=== PATIENT | male | born 1955 | race Caucasian/White ===

== ENCOUNTER 2016-04-10 08:52 | Observation (INO) | payer BC ==
[2016-04-10] MEDS ORDERED: Albuterol/Ipratropium NEB.SOL* Albuterol 2.5 MG/Ipratropium 0.5 MG 3 ML INH ONE ×2 (09:07→10:07)
[2016-04-10] MEDS ORDERED: methylPREDNISolone 125 MG* 2 ML VIAL IV ONE (10:07)
--- NOTE | 2016-04-10 10:28 | RAD ---
INDICATION: Shortness of breath in a patient who was recently receiving chemotherapy. COMPARISON: Most recent comparison chest x-ray dated January 23, 2015 TECHNIQUE: PA and lateral views of the chest were obtained. FINDINGS: The heart and mediastinum are normal in size and contour. The lungs appear mildly hyperaerated, the diaphragm are flattened and there is an increased retrosternal airspace on the lateral view chest x-ray. Faint reticulonodular densities are seen overlying the bilateral lungs are becoming more confluent overlying the right upper lobe. There is no evidence of large pleural effusion. Visualized bones are normal for the patient's age. There is no radiographic evidence of free air beneath the diaphragm IMPRESSION: 1. Faint reticulonodular densities throughout the lungs could represent interstitial lung disease, fluid overload, pneumonitis or another diffuse process. 2. Stigmata of chronic obstructive pulmonary disease.
[2016-04-10 10:30] LABS: Hematocrit 42 % (42-52); Mean Corpuscular HGB Conc 33 g/dl (31-36); Mean Corpuscular Hemoglobin 33 pg (27-31); Mean Corpuscular Volume 97 fL (80-94); Mean Platelet Volume 10 um3 (7.4-10.4); Red Cell Distribution Width 14 % (10.5-15); White Blood Count 12.4 10^3/ul (3.5-10.8)
[2016-04-10 10:44] LABS: BUN/Creatinine Ratio 19.8 (8-20); Calcium 8.8 mg/dL (8.6-10.3); EGFR African American 125.4 (>60); EGFR Non-African American 97.5 (>60); Potassium 3.7 mmol/L (3.5-5.0)
[2016-04-10] MEDS ORDERED: Iohexol 350* (CONTRAST) 500 ML MDV IV ONE (12:55)
[2016-04-10] MEDS ORDERED: guaiFENesin/CODIEN 100MG-10MG* 5 ML UDC PO ONE (14:01)
--- NOTE | 2016-04-10 14:42 | RAD ---
INDICATION: Shortness of breath COMPARISON: CTA chest dated December 18, 2014 TECHNIQUE: Axial source images were acquired following the administration of 65 mL Omnipaque [address] angiographic technique. Coronal and sagittal reconstructed images were constructed and reviewed. FINDINGS: There there are no filling defects in the pulmonary arteries to indicate acute pulmonary embolic disease. Similar to previous CTA examination the lungs exhibit diffuse centrilobular emphysematous changes. There are no focal infiltrates or effusions. There are no pulmonary parenchymal masses. The heart is normal in size. There is no evidence of pericardial effusion. There is no evidence of aortic aneurysm or dissection. Again seen are mediastinal and hilar lymph nodes similar in appearance to the previous CT examination, but none exhibit pathologic enlargement. There is left axillary lymphadenopathy similar to the previous CT examination with the largest lymph node measuring 1.8 centimeters in greatest dimension. Overall the lymph nodes in the left axilla are smaller relative to the previous CT examination. At least one surgical clip is seen in the left axilla. Generative changes of the thoracic spine include loss of intervertebral disc height. There is likely a hemangioma at the T7 vertebral body. There is a surgical clip adjacent to the left adrenal gland. Remaining visualized abdominal structures are grossly normal. IMPRESSION: 1. No CT of evidence of pulmonary embolism. 2. Chronic, degenerative and iatrogenic findings as described in the body the report. There is left axillary lymphadenopathy but this is improved relative to the December 18, 2014 CT examination.
[2016-04-10] MEDS ORDERED: Albuterol 2.5 MG/3 ML NEB.SOL* (0.083%) INH PRN (15:42)
[2016-04-10] MEDS ORDERED: NS 0.9% 1000 ML* 1,000 ML IV SCH (15:45)
[2016-04-10] MEDS ORDERED: Albuterol/Ipratropium NEB.SOL* Albuterol 2.5 MG/Ipratropium 0.5 MG 3 ML INH SCH (16:00)
[2016-04-10] MEDS ORDERED: Azithromycin IV(*) 500 MG in NS 0.9% 250 ML* 250 ML IVPB SCH (17:00)
[2016-04-10] MEDS: methylPREDNISolone 125 MG* 2 ML VIAL IV SCH (17:08)
[2016-04-10] MEDS ORDERED: diPHENhydraMINE PO* 25 MG PO PRN (18:20)
[2016-04-10] MEDS: Albuterol/Ipratropium NEB.SOL* Albuterol 2.5 MG/Ipratropium 0.5 MG 3 ML INH SCH ×2 (19:08→23:57)
[2016-04-10] MEDS: Mometasone/Formoter 200/5 MDI INH SCH (19:15)
[2016-04-10] MEDS: Heparin VIAL(*) 5000 UNITS/ML VIAL (FIVE THOUSAND) SUBCUT SCH (21:45)
--- NOTE | 2016-04-11 01:48 | HP ---
HISTORY AND PHYSICAL: DATE OF ADMISSION: 04/10/16 PRIMARY CARE PROVIDER: Dr. Carver. ATTENDING PHYSICIAN WHILE IN THE HOSPITAL: Dr. Christiano Richardson *(report dictated by Perez De Paz, ALLYSSA). CHIEF COMPLAINT: 1. Shortness of breath. 2. Cough. HISTORY OF PRESENT ILLNESS: Mr. Singer is a 61-year-old male patient who has a history of GERD, COPD, lymphoma, and West Nile virus. He comes in to the ER today stating that 3 to 4 weeks ago, he was diagnosed with bronchitis. He was put on a long taper of steroids. He finished the steroids. He normally takes 10 mg prednisone according to him chronically for his breathing and is on oxygen at night. He says he was doing well initially, the steroids have been stopped now, he has been off them for about 2 to 3 weeks. He states that today and the last couple of days, he has more worsening shortness of breath. He has been coughing up, bringing up some yellow sputum at times. He has been having more dyspnea on exertion. He has not had any chills or any fevers that he knows of. He does state that he follows with Dr. Cho who saw him about 3 weeks ago. He has been taking his inhalers as prescribed, but they just have not been helping him. He says that yesterday he was short of breath, but by afternoon time, he was okay, but today, when he woke up again, much more short of breath and he could not recover. His was concerned and she called 911 immediately and he was brought into the hospital to be evaluated. PAST MEDICAL HISTORY: Significant for: 1. GERD. 2. COPD. 3. Lymphoma. 4. West Nile virus. 5. Hypertension. 6. Hyperlipidemia. PAST SURGICAL HISTORY: 1. He has had splenectomy. 2. Achilles tendon repair. HOME MEDICATIONS: Include: 1. Norvasc 2.5 mg daily. 2. Symbicort 2 puffs inhaled b.i.d. 3. Wellbutrin 150 mg p.o. daily. 4. Famotidine 20 mg p.o. daily. 5. Multivitamin 1 tab p.o. daily. 6. Crestor 10 mg p.o. daily. 7. Valtrex 500 mg daily. 8. Vitamin D 4000 units daily. 9. Prednisone 10 mg by mouth p.o. daily. ALLERGIES TO MEDICATIONS: Include no known drug allergies. FAMILY HISTORY: His father has a history of lymphoma and coronary artery disease and mother had a history of diabetes. SOCIAL HISTORY: He was a former smoker. He quit about a year ago. He smoked for 40 years about a pack a day. Does not drink alcohol. Surrogate decision maker is his . REVIEW OF SYSTEMS: There is no documented fever. He denies having any chills. There is no significant weight change. He denies having any double vision. There is no ear discharge. There was rhinorrhea. There was sore throat. There is a cough with yellow type sputum. He denies any chest pain. Denies any orthopnea. He admits to dyspnea on exertion. Denies having any abdominal pain. Denies having any nausea. There is no dysuria. No frequency. No loss of consciousness. No pruritus. No skin ulcerations. Review of 14 systems completed, all others negative. PHYSICAL EXAMINATION GENERAL: At this time, Mr. Singer is a 61-year-old male patient who is sitting in the ER stretcher. He does not appear to be in any acute distress. He is well nourished, well developed. VITAL SIGNS: Blood pressure 130/82 with a pulse of 92, respirations 16, O2 saturation 97% on 4 L. When he came in, his O2 saturation was 81% on room air. HEENT: Head: Atraumatic, normocephalic. Eyes: EOMs are intact. Sclerae anicteric, not pale. Throat: Oral mucosa appears to be dry. No oropharyngeal erythema. NECK: Supple. LUNGS: He had wheezing expiratory throughout, and equal diaphragmatic expansion. HEART: Sounds S1, S2. Regular rate and rhythm. No murmurs, rubs, or gallops. ABDOMEN: Soft, flat, nontender. Bowel sounds present. EXTREMITIES: Pulses 2+ throughout. Able to move all 4 extremities with 5/5 strength. NEUROLOGIC: The patient is awake, alert, and oriented x3. Tongue midline. Facilities Clerk were equal. No gross focal deficits. SKIN: Intact. LABORATORY DATA/DIAGNOSTIC STUDIES: Today revealed WBC of 12.4, RBC of 4.30, hemoglobin 14.0, hematocrit 42, platelet count 276. Sodium was 137, potassium 3.7, chloride 104, bicarb 28, BUN 16, creatinine 0.81, glucose 116, calcium 8.8. Troponin 0.01. He did have an EKG obtained today which revealed a sinus tachycardia, rate of 104. No ST elevations or T-wave inversions. No previous for comparison, appeared to be normal axis. He did have a chest x-ray obtained today as well. In my review, I did not see any acute infiltrates or effusions. Radiology read it as faint reticular nodular densities throughout the lungs to represent interstitial lung disease, no fluid overload or pneumonitis, or another disease process. Stigmata of COPD. He did have a CTA of the chest which revealed no CT evidence of pulmonary embolism. Chronic degenerative and iatrogenic findings as described in the body of the report. There is a left axillary lymphadenopathy, but this is improved from the CT scan of 2015. Old medical records were reviewed. ASSESSMENT AND PLAN: Mr. Singer is a 61-year-old male patient with a history of chronic obstructive pulmonary disease, West Nile virus exposure in the past, and lymphoma, coming in to the ER today with complaints of worsening shortness of breath, cough, and dyspnea on exertion. He will be admitted under observation status for: 1. Chronic obstructive pulmonary disease exacerbation: At this point, I will check legionella and strep pneumoniae antigens. We will get a sputum culture. We will put him on nebulizers around the clock. Encourage pulmonary toileting. In addition to this, Shantal lamas I will consider getting consult with Dr. Cho tomorrow as the patient sees her on an outpatient setting and I think he may benefit as he has had recurrent exacerbations. For the time being though, we will continue with again the steroids and nebulizers and we will continue to monitor. 2. Gastroesophageal reflux disease: Continue famotidine. 3. History of lymphoma: He says he was taking medication for this, but he is no longer on this medication. So, we will go ahead and try to get that name of the medication to see what he was taking exactly, but currently, he is just under surveillance of this disease and can follow up with outpatient provider. 4. Hyperlipidemia: Continue statin therapy. 5. Hypertension: He is on Norvasc. Continue with that medication as well. 6. DVT prophylaxis: He is a moderate risk. He will be placed on heparin subcu. 7. Fluids, electrolytes, and nutrition: He will be on a regular diet. 8. Code status: Full code. TIME SPENT: Time spent on the admission was 60 minutes; greater than half the time was spent [id number] with the patient obtaining my history and physical, other half the time spent going over the plan of care with the patient and implementing plan of care. I did discuss the plan of care with my attending, Dr. Richardson; he is in agreement. PEREZ DE PAZ NP CC: Dr. Carver; Dr. Cho* [id number]/CPS #: [id number] MTDD
[2016-04-11] MEDS: methylPREDNISolone 125 MG* 2 ML VIAL IV SCH (04:51)
[2016-04-11] MEDS: Heparin VIAL(*) 5000 UNITS/ML VIAL (FIVE THOUSAND) SUBCUT SCH (04:51)
[2016-04-11] MEDS: Albuterol/Ipratropium NEB.SOL* Albuterol 2.5 MG/Ipratropium 0.5 MG 3 ML INH SCH ×3 (04:52→11:11)
[2016-04-11 06:08] LABS: Hematocrit 39 % (42-52); Hemoglobin 13.4 g/dl (14.0-18.0); Mean Corpuscular HGB Conc 34 g/dl (31-36); Mean Corpuscular Hemoglobin 33 pg (27-31); Mean Corpuscular Volume 97 fL (80-94); Mean Platelet Volume 10 um3 (7.4-10.4); Red Blood Count 4.06 10^6/ul (4.0-5.4); Red Cell Distribution Width 14 % (10.5-15); White Blood Count 10.6 10^3/ul (3.5-10.8)
[2016-04-11 06:36] LABS: BUN/Creatinine Ratio 20.5 (8-20); Calcium 8.8 mg/dL (8.6-10.3); EGFR Non-African American 88.6 (>60)
[2016-04-11] MEDS: Mometasone/Formoter 200/5 MDI INH SCH (07:49)
[2016-04-11 08:59] VITALS: BP 125/80
[2016-04-11] MEDS ORDERED: ValACYclovir (*) 500 MG TAB PO SCH (09:00)
[2016-04-11] MEDS ORDERED: Famotidine TAB* 20 MG PO SCH (09:00)
[2016-04-11] MEDS ORDERED: amLODIPine TAB* 5 MG PO SCH (09:00)
[2016-04-11] MEDS ORDERED: buPROPion SR TAB.SR* 150 MG PO SCH (09:00)
[2016-04-11] MEDS ORDERED: Atorvastatin* 20 MG TAB PO SCH (09:00)
--- NOTE | 2016-04-11 12:01 | DCNOTE ---
Subjective Date of Service: 04/11/16 Interval History: Patient seen and examined at bedside. He denies CP, abd pain, n/v. He reports his breathing is better and reports being OOB and ambulating around halls at least 3 times this morning on RA. Per nursing notes, pt's O2 sat was 91% or better on RA with ambulation. Pt is requesting to go home. He wears home O2 at night at his baseline. Family History: Unchanged from Admission Social History: Unchanged from Admission Past Medical History: Unchanged from Admission Objective Active Medications: Albuterol/Ipratropium (Duoneb Neb.Violet*) 1 neb INH [id number] AWAKE [facility] Last Admin: 04/11/16 11:11 Dose: 1 neb Amlodipine Besylate (Norvasc Tab*) 2.5 mg PO DAILY [facility] Last Admin: 04/11/16 10:04 Dose: 2.5 mg Atorvastatin Calcium (Lipitor*) 20 mg PO DAILY [facility] PRN Reason: Protocol Last Admin: 04/11/16 10:04 Dose: 20 mg Bupropion HCl (Wellbutrin Sr Tab*) 150 mg PO DAILY [facility] Last Admin: 04/11/16 10:04 Dose: 150 mg Diphenhydramine HCl (Benadryl Po*) 25 mg PO BEDTIME PRN PRN Reason: SLEEP Last Admin: 04/10/16 23:51 Dose: 25 mg Famotidine (Pepcid Tab*) 20 mg PO DAILY [facility] Last Admin: 04/11/16 10:04 Dose: 20 mg Heparin Sodium (Porcine) (Heparin Vial(*)) 5,000 units SUBCUT Q8HR [facility] Last Admin: 04/11/16 04:51 Dose: 5,000 units Sodium Chloride (Ns 0.9% 1000 Ml*) 1,000 mls @ 100 mls/hr IV PER RATE [facility] Last Admin: 04/10/16 17:07 Dose: 100 mls/hr Azithromycin 500 mg/ Sodium (Chloride) 250 mls @ 250 mls/hr IVPB Q24H [facility] Last Admin: 04/10/16 17:07 Dose: 250 mls/hr Methylprednisolone Sodium Succinate (Solu-Medrol*) 60 mg IV Q12H [facility] Last Admin: 04/11/16 04:51 Dose: 60 mg Mometasone Furoate/Formoterol Fumar (Dulera 200/5 Mdi*) 2 puff INH BID [facility] Last Admin: 04/11/16 07:49 Dose: 2 puff Valacyclovir HCl (Valtrex 500 Mg (*)) 500 mg PO DAILY [facility] PRN Reason: Protocol Last Admin: 04/11/16 10:04 Dose: 500 mg Vital Signs 04/10/16 04/10/16 04/10/16 15:48 17:14 17:49 Temperature 97.9 F 97.9 F Pulse Rate 93 91 91 Respiratory 16 18 18 Rate Blood Pressure 130/83 129/79 129/79 (mmHg) O2 Sat by Pulse 97 95 94 Oximetry 04/10/16 04/10/16 04/10/16 17:51 19:16 19:24 Temperature 97.5 F Pulse Rate 103 101 Respiratory 18 20 28 Rate Blood Pressure 138/71 (mmHg) O2 Sat by Pulse 93 95 Oximetry 04/10/16 04/10/16 04/10/16 19:52 23:42 23:51 Temperature 98.0 F Pulse Rate 90 Respiratory 20 20 20 Rate Blood Pressure 128/74 (mmHg) O2 Sat by Pulse 93 Oximetry 04/11/16 04/11/16 04/11/16 00:00 01:44 01:51 Temperature Pulse Rate 88 Respiratory 20 20 Rate Blood Pressure (mmHg) O2 Sat by Pulse 93 93 Oximetry 04/11/16 04/11/16 04/11/16 03:19 07:16 07:51 Temperature 97.5 F 98.2 F Pulse Rate 86 96 86 Respiratory 21 18 18 Rate Blood Pressure 125/83 125/80 (mmHg) O2 Sat by Pulse 96 92 96 Oximetry 04/11/16 11:14 Temperature Pulse Rate 97 Respiratory 16 Rate Blood Pressure (mmHg) O2 Sat by Pulse 100 Oximetry Oxygen Devices in Use Now: None Appearance: Male patient, sitting up in bed, in NAD Eyes: PERRLA Ears/Nose/Mouth/Throat: Clear Oropharnyx, Mucous Membranes Moist Neck: NL Appearance and Movements; NL JVP Respiratory: Symmetrical Chest Expansion and Respiratory Effort, Clear to Auscultation - expiratory wheezing in bases, prolonged expiratory phase Cardiovascular: NL Sounds; No Murmurs; No JVD, RRR Abdominal: NL Sounds; No Tenderness; No Distention Extremities: No Edema, No Clubbing, Cyanosis Skin: No Rash or Ulcers Neurological: Alert and Oriented x 3 Lines/Tubes/Other Access: Clean, Dry and Intact Peripheral IV Nutrition: Taking PO's Result Diagrams: 04/11/16 05:46 04/11/16 05:46 Microbiology and Other Data: Microbiology 04/10/16 21:50 Legionella Urinary Antigen - Final Urine Negative Legionella Streptococcus pneumoniae Ag Screen - Final Negative S. pneumo Antigen Assess/Plan/Problems-Billing Assessment: Mr. Singer is a 61 yo male with a PMH of COPD, lymphoma, GERD, HTN, HLD, and West Nile Virus who presented to the ED on 04/09/16 with SOB that is secondary to COPD exacerbation. - Patient Problems (1) COPD with exacerbation Code(s): J44.1 - CHRONIC OBSTRUCTIVE PULMONARY DISEASE W (ACUTE) EXACERBATION Comment: Improved. Add Spiriva and continue home Symbicort and PRN nebulizers. Continue Zithromax for 5 day course. Legionella and strep pneumoniae urine antigens negative. Continue steroid treatment, will discharge patient on slow prednisone taper. Patient to call Dr. Cho for follow-up within 7-14 days. (2) GERD (gastroesophageal reflux disease) Code(s): K21.9 - GASTRO-ESOPHAGEAL REFLUX DISEASE WITHOUT ESOPHAGITIS Comment : Stable, continue home famotidine. (3) HTN (hypertension) Code(s): I10 - ESSENTIAL (PRIMARY) HYPERTENSION Comment: Controlled, continue home amlodipine. (4) HLD (hyperlipidemia) Code(s): E78.5 - HYPERLIPIDEMIA, UNSPECIFIED Comment: Stable, continue home rosuvastatin. (5) Lymphoma Comment: Continue outpatient follow-up with oncologist. Continue valacyclovir. (6) DVT prophylaxis Comment: SQ heparin Status and Disposition: OBV admit. Discharge to home with close follow-up with pulmonology.
[2016-04-11] MEDS ORDERED: Spiriva Inhaler DEVICE* 1 EACH DEVICE INH ONE (13:00)
[2016-04-11] MEDS ORDERED: Azithromycin TAB* 250 MG PO SCH (13:00)
[2016-04-11] MEDS ORDERED: Tiotropium CAP.INH* CAP.INH/18 MCG (USE ORDER SET !) INH SCH (13:00)
--- NOTE | 2016-04-12 07:36 | DS ---
DISCHARGE SUMMARY: DATE OF ADMISSION: 04/10/16 DATE OF DISCHARGE: 04/11/16. ATTENDING PHYSICIAN: Dr. Clay Dobbs M.D. * (as dictated by Radha Sullivan NP). PRIMARY CARE PHYSICIAN: Dr. Carver. PULMONOLOGY: Dr. Cho. PRIMARY DISCHARGE DIAGNOSIS: Chronic obstructive pulmonary disease exacerbation. SECONDARY DISCHARGE DIAGNOSES: 1. Gastroesophageal reflux disease. 2. Lymphoma. 3. Hypertension. 4. Hyperlipidemia. 5. History of West Nile virus. MEDICATIONS AT DISCHARGE: 1. Valtrex 500 mg daily. 2. Rosuvastatin 10 mg daily. 3. Famotidine 20 mg daily. 4. Amlodipine 2.5 mg daily. 5. Symbicort 2 puffs p.o. b.i.d. 6. Bupropion 150 mg daily. 7. Vitamin D 4000 units daily. 8. Multivitamin one tablet daily. NEW MEDICATIONS AT DISCHARGE: 1. Prednisone taper, the patient should be on 40 mg, x5 days then 30 mg x5 days then 20 mg x5 days then 10 x5 days. 2. Spiriva one capsule inhaled daily. 3. Zithromax 250 mg daily x4 days, to complete a 5-day course. DIAGNOSTIC TESTS: Diagnostic tests completed during hospital course of stay. Chest x-ray, impression: 1. Faint reticulonodular radicular nodular densities throughout the lungs, could represent interstitial lung disease, fluid overload, pneumonitis or any other diffuse process. 2. Stigmata of chronic obstructive pulmonary disease. CTA of chest and thorax, impression; 1. No CT evidence of pulmonary embolism. 2. Chronic congenital and iatrogenic findings as described in the body of the report. There is left axillary lymphadenopathy but this is improved relative to December 18, 2014, CT examination. HOSPITAL COURSE OF STAY: For full details, please refer to the H and P provided by the nurse practitioner, Perez De Paz NP, on 04/10/16. In summary , Mr. Singer is a 61-year-old male patient with a past medical history as stated above who presented to the ED with shortness of breath and cough. The patient does follow in the outpatient setting with Dr. Cho and states that he had recently been on a prednisone taper and has been maintained on prednisone 10 mg at home. Prior to the admission, he states that he was feeling short of breath , was able to recover but then woke up later in the evening, feeling more short of breath without ability to recover. The patient was brought in by EMS for evaluation and admitted with concern for COPD exacerbation. His legionella and Strep pneumoniae antigens were negative. The patient showed remarkable improvement with nebulizer treatments from Solu Medrol. The following morning, his oxygen saturation was tested on room air, and the patient was able to maintain his O2 sats at 91% and above on room air while ambulating on the unit. He was able to demonstrate safe ambulation around the unit multiple times with no oxygen and with stand by assist only. He requested to go home today; he felt much better. The patient was started on Spiriva prior to discharge and was encouraged to use incentive spirometry. Additionally, I have restarted him on a prednisone taper as stated above and we will continue his Zithromax. The patient was advised to call Dr. Cho's office tomorrow on 04/12/16 to make an appointment within the next 7 to 14 days while he is on the steroids, but he can be evaluated during this course of treatment. The patient agreed to this. I also advised him to see his PCP also within the next week or so, which he agreed to. The patient demonstrates good understanding of the instructions given to him, was able to repeat them back. He was also able to demonstrate appropriate use of medications. CONCERNS AT DISCHARGE: Mr. Singer will be discharged to home on 04/11/16 with a plan to follow up with both his PCP and Pulmonology within the next 7 to 14 days. DIET: May resume regular diet. ACTIVITY: As tolerated. CONDITION ON DISCHARGE: Stable, improved. DISPOSITION: Home. TIME SPENT: Time spent on this discharge was approximately 40 minutes. Again, this is only a brief summary of the patient's hospital course of stay. For full details, please refer to the full H and P. If you have any further questions, please feel free to reach me at [phone]. RADHA SULLIVAN NP CC: Dr. Carver.* [id number]/CPS #: [id number] [facility]ITAL[facility]ahid
--- NOTE | 2016-04-12 14:07 | ED ---
Jonah Chang Adam, scribed for Benjamin Padilla MD on 04/10/16 at 0915 . Shortness of Breath - HPI Summary HPI Summary: A 61 y/o male presents to the ED BIBA for SOB that got worse this morning with an associated productive cough (yellow sputum). Patient states he slept on the couch last night due to the cough. He denies CP, fever, sweats, rhinorrhea, sore throat, or coughing up blood. The breathing treatment EMS gave him did not help very much. Patient was recently diagnosed with COPD and has had lymphoma for 25 years (in remission). 3 weeks ago he was given a Zpak and prednisone for bronchitis. He tapered the steroids and is now taking 10 mg currently. Patient is a former smoker and quit 1 year ago. - History of Current Complaint Chief Complaint: EDShortnessOfBreath Time Seen by Provider: 04/10/16 09:06 Hx Obtained From: Patient Onset/Duration: Gradual Onset, Lasting Weeks, Worse Since - Yesterday Timing: Constant Current Severity: Moderate Dyspnea At: Exertion Aggrevating Factors: Movement, Recumbent Position - Slept on couch last night due to cough Alleviating Factors: Bronchodilators - Slight improvement from EMS treatment Associated Signs & Symptoms: Cough (Productive) - Yellow sputum, Wheezing - Allergy/Home Medications Allergies/Adverse Reactions: Allergies Allergy/AdvReac Type Severity Reaction Status Date / Time No Known Allergies Allergy Verified 12/18/14 10:59 Home Medications: Home Medications Amlodipine Besylate [Norvasc] 2.5 mg PO DAILY 04/10/16 [History Confirmed ] Budesonide/Formote 160/4.5(NF) [Symbicort 160/4.5 (NF)] 2 inhaler INH BID [History Confirmed 04/10/16] Famotidine [Pepcid] 20 mg PO DAILY 04/10/16 [History Confirmed 04/10/16] Rosuvastatin (NF) [Crestor (NF)] 10 mg PO DAILY 04/10/16 [History Confirmed 04/26] Valacyclovir HCl [Valtrex] 500 mg PO DAILY 04/10/16 [History Confirmed 04/10/16] PMH/Surg Hx/FS Hx/Imm Hx Endocrine/Hematology History: Reports: Other Endocrine/Hematological Disorders - Lymphoma 25 years Denies: Hx Diabetes, Hx Thyroid Disease Cardiovascular History: Denies: Hx Hypertension, Hx Pacemaker/ICD Respiratory History: Reports: Hx Chronic Obstructive Pulmonary Disease (COPD) Denies: Hx Asthma GI History: Denies: Hx Ulcer History: Denies: Hx Dialysis, Hx Renal Disease Sensory History: Denies: Hx Hearing Aid Psychiatric History: Denies: Hx Panic Disorder - Cancer History Cancer Type, Location and Year: LYMPHOMA 1994 - chemo treatment Hx Chemotherapy: Yes Hx Radiation Therapy: No - Surgical History Surgery Procedure, Year, and Place: SPLEENECTOMY 1999, NASAL SEPTUM, achiles tendon Infectious Disease History: No Infectious Disease History: Denies: Hx Hepatitis, Hx Human Immunodeficiency Virus (HIV), Traveled Outside the [place] in Last 30 Days - Family History Known Family History: Positive: Diabetes - Mother, Other - Lymphoma - Father - Social History Alcohol Use: Occasionally Substance Use Type: Reports: None Smoking Status (MU): Former Smoker - Quit 1 year ago Type: Cigarettes Review of Systems Constitutional: Negative Negative: Fever, Chills Eyes: Negative Negative: Erythema ENT: Negative Negative: Sore Throat Cardiovascular: Negative Negative: Chest Pain Positive: Shortness Of Breath, Cough Gastrointestinal: Negative Negative: Abdominal Pain, Vomiting, Nausea Genitourinary: Negative Negative: dysuria, hematuria Musculoskeletal: Negative Negative: Myalgia, Edema Skin: Negative Negative: Rash Neurological: Negative, Other - Negative: Dizziness Psychological: Normal All Other Systems Reviewed And Are Negative: Yes Physical Exam - Summary Physical Exam Summary: Constitutional: Well-developed, Well-nourished, Alert. (-) Distressed Skin: Warm, Dry HENT: Normocephalic; Atraumatic Eyes: Conjunctiva normal Neck: Musculoskeletal ROM normal neck. (-) JVD, (-) Stridor, (-) Tracheal deviation Cardio: Rhythm regular, rate normal, Heart sounds normal; Intact distal pulses; The pedal pulses are 2+ and symmetric. Radial pulses are 2+ and symmetric. (-) Murmur Pulmonary/Chest wall: Diminished breath sounds. Effort normal. (-) Respiratory distress, Expiratory wheezes, (-) Rales Abd: Soft, (-) Tenderness, (-) Distension, (-) Guarding, (-) Rebound Musculoskeletal: (-) Edema Lymph: (-) Cervical adenopathy Neuro: Alert, Oriented x3 Psych: Mood and affect Normal Vital Signs On Initial Exam: Initial Vitals Temp Pulse Resp BP Pulse Ox 98.4 F 107 24 126/77 94 04/10/16 08:54 04/10/16 08:54 04/10/16 08:54 04/10/16 08:54 04/10/16 08:54 Diagnostics - Vital Signs Vital Signs Temp Pulse Resp BP Pulse Ox 04/10/16 08:54 98.4 F 107 24 126/77 94 - Laboratory Lab Results: Lab Results 04/10/16 04/10/16 04/10/16 Range/Units 10:21 10:21 13:46 WBC 12.4 H (3.5-10.8) 10^3/ul RBC 4.30 (4.0-5.4) 10^6/ul Hgb 14.0 (14.0-18.0) g/dl Hct 42 (42-52) % MCV 97 H (80-94) fL MCH 33 H (27-31) pg MCHC 33 (31-36) g/dl RDW 14 (10.5-15) % Plt Count 276 (150-450) 10^3/ul MPV 10 (7.4-10.4) um3 Sodium 137 (133-145) mmol/L Potassium 3.7 (3.5-5.0) mmol/L Chloride 104 (101-111) mmol/L Carbon Dioxide 28 (22-32) mmol/L Anion Gap 5 (2-11) mmol/L BUN 16 (6-24) mg/dL Creatinine 0.81 (0.67-1.17) mg/dL Est GFR ( Amer) 125.4 (>60) Est GFR (Non-Af Amer) 97.5 (>60) BUN/Creatinine Ratio 19.8 (8-20) Glucose 116 H (70-100) mg/dL Calcium 8.8 (8.6-10.3) mg/dL Troponin I 0.01 (<0.04) ng/mL Result Diagrams: 04/11/16 05:46 04/11/16 05:46 Lab Statement: Any lab studies that have been ordered have been reviewed, and results considered in the medical decision making process. - Radiology CXR Xray Interpretation: Positive (See Comments) - 1. Faint reticulonodular densities throughout the lungs could represent interstitial lung disease, fluid overload, pneumonitis or another diffuse process. 2. Stigmata of chronic obstructive pulmonary disease. Radiology Interpretation Completed By: Radiologist - EKG 8:54 Cardiac Rate: Tachycardia - 104 EKG Rhythm: Sinus Tachycardia Re-Evaluation - Re-Evaluation First Eval Re-Evaluation Time: 12:46 Change: Unchanged Comment: Pt still short of breath Course/Dx - Diagnoses Provider Diagnoses: COPD with exacerbation Discharge - Discharge Plan Condition: Improved Disposition: ADMITTED TO [facility] documentation as recorded by the Jonah wilson Adam accurately reflects the service I personally performed and the decisions made by me, Benjamin Padilla MD.
[2016-04-13 17:05] LABS: Influenza Virus Type A IgM Ab <1:10 (<1:10); Influenza Virus Type B IgM Ab <1:10 (<1:10)
== END 2016-04-11 14:15 | disposition home or self-care (01) ==
LOC: ED 08:52 → MED 15:33
PROVIDERS: ADMIT Internal Medicine; ATTEND Hospitalist
DX: J44.1 Chronic obstructive pulmonary disease with (acute) exacerbation (principal); K21.9 Gastro-esophageal reflux disease without esophagitis; I10 Essential (primary) hypertension; E78.5 Hyperlipidemia, unspecified; R00.0 Tachycardia, unspecified; Z85.72 Personal history of non-Hodgkin lymphomas; Z79.899 Other long term (current) drug therapy; Z87.891 Personal history of nicotine dependence
CPT/HCPCS: 36415; 71020; 71275; 80048; 84484; 85025; 85027; 85610; 86710; 87899; 93005; 94640; 94664; 94760; 96365; 96372; 96375; 96376; 99283; A9270-GY; G0378; J0456; J1644; J2930; Q9967

== ENCOUNTER 2016-09-04 03:26 | Inpatient (IN) | payer BC ==
[2016-09-04] MEDS ORDERED: Albuterol/Ipratropium NEB.SOL* Albuterol 2.5 MG/Ipratropium 0.5 MG 3 ML INH ONE (03:30)
[2016-09-04 03:52] LABS: Hematocrit 43 % (42-52); Hemoglobin 14.5 g/dl (14.0-18.0); Mean Corpuscular HGB Conc 34 g/dl (31-36); Mean Corpuscular Hemoglobin 32 pg (27-31); Mean Corpuscular Volume 96 fL (80-94); Mean Platelet Volume 10 um3 (7.4-10.4); Red Blood Count 4.46 10^6/ul (4.0-5.4); Red Cell Distribution Width 14 % (10.5-15); White Blood Count 14.1 10^3/ul (3.5-10.8)
[2016-09-04 04:00] LABS: Albumin 4.2 g/dL (3.2-5.2); BUN/Creatinine Ratio 22.3 (8-20); Calcium 9.3 mg/dL (8.6-10.3); EGFR African American 105.6 (>60); EGFR Non-African American 82.1 (>60); Globulin 2.2 g/dL (2-4); Potassium 4.2 mmol/L (3.5-5.0); Total Bilirubin 0.7 mg/dL (0.2-1.0); Total Protein 6.4 g/dL (6.4-8.9)
[2016-09-04] MEDS ORDERED: Iohexol 350* (CONTRAST) 500 ML MDV IV ONE (04:32)
--- NOTE | 2016-09-04 04:33 | ED ---
Yomaira Chang SooYoung, scribed for Dejon Barrera MD on 09/04/16 at 0342 . Respiratory - HPI Summary HPI Summary: A 61 y/o M ZUNILDA presents to ED with worsening respiratory distress onset three days ago. Pert PMHx: COPD. Per EMS: pt has been having difficulty breathing for the past three days, but it was significantly worse today; CPAP on ride to ED was helpful; pt denies CP. Pt was given - History of Current Complaint Chief Complaint: EDRespiratoryDistress Stated Complaint: RESPIRATORY DISTRESS Time Seen by Provider: 09/04/16 03:27 Hx Obtained From: EMS Onset/Duration: Lasting Days, Still Present Timing: Constant Character: Dyspnea at Rest - Allergy/Home Medications Allergies/Adverse Reactions: Allergies Allergy/AdvReac Type Severity Reaction Status Date / Time No Known Allergies Allergy Verified 09/04/16 04:10 PMH/Surg Hx/FS Hx/Imm Hx Previously Healthy: No Endocrine/Hematology History: Reports: Other Endocrine/Hematological Disorders - Lymphoma 25 years Denies: Hx Diabetes, Hx Thyroid Disease Cardiovascular History: Reports: Hx Hypercholesterolemia Denies: Hx Hypertension, Hx Pacemaker/ICD Respiratory History: Reports: Hx Chronic Obstructive Pulmonary Disease (COPD), Other Respiratory Problems/Disorders - LYMPHOMA Denies: Hx Asthma GI History: Denies: Hx Ulcer History: Denies: Hx Dialysis, Hx Renal Disease Sensory History: Denies: Hx Hearing Aid Psychiatric History: Denies: Hx Panic Disorder - Cancer History Cancer Type, Location and Year: LYMPHOMA 1994 - chemo treatment Hx Chemotherapy: Yes Hx Radiation Therapy: No - Surgical History Surgery Procedure, Year, and Place: SPLEENECTOMY 1999, NASAL SEPTUM, achiles tendon Infectious Disease History: Denies: Hx Hepatitis, Hx Human Immunodeficiency Virus (HIV), Traveled Outside the [place] in Last 30 Days - Family History Known Family History: Positive: Diabetes - Mother, Other - Lymphoma - Father - Social History Occupation: Disabled Lives: With Family Alcohol Use: Occasionally Hx Substance Use: No Substance Use Type: Reports: None Hx Tobacco Use: Yes Smoking Status (MU): Former Smoker - Quit 1 year ago Type: Cigarettes Review of Systems Negative: Chest Pain Positive: Shortness Of Breath, Other - pos: COPD exacerbation All Other Systems Reviewed And Are Negative: Yes Physical Exam Triage Information Reviewed: Yes Vital Signs On Initial Exam: Initial Vitals Temp Pulse Resp Pulse Ox 97.7 F 117 35 98 09/04/16 03:30 09/04/16 03:30 09/04/16 03:30 09/04/16 03:30 Vital Signs Reviewed: Yes Appearance: Positive: No Pain Distress, Ill-Appearing Skin: Positive: Warm Head/Face: Positive: Normal Head/Face Inspection Eyes: Positive: DOUG ENT: Positive: Hearing grossly normal Neck: Positive: Supple Respiratory/Lung Sounds: Positive: Breath Sounds Present, Wheezes - diffuse bilat Cardiovascular: Positive: RRR Abdomen Description: Positive: Nontender, Soft Bowel Sounds: Positive: Present Musculoskeletal: Positive: Strength/ROM Intact Neurological: Positive: Alert, Oriented to Person Place, Time Psychiatric: Positive: Affect/Mood Appropriate Diagnostics - Vital Signs Vital Signs Temp Pulse Resp Pulse Ox 09/04/16 03:30 97.7 F 117 35 98 - Laboratory Lab Results: Lab Results 09/04/16 09/04/16 09/04/16 Range/Units 03:30 03:30 03:30 WBC 14.1 H (3.5-10.8) 10^3/ul RBC 4.46 (4.0-5.4) 10^6/ul Hgb 14.5 (14.0-18.0) g/dl Hct 43 (42-52) % MCV 96 H (80-94) fL MCH 32 H (27-31) pg MCHC 34 (31-36) g/dl RDW 14 (10.5-15) % Plt Count 312 (150-450) 10^3/ul MPV 10 (7.4-10.4) um3 Neut % (Auto) 64.3 (38-83) % Lymph % (Auto) 19.4 L (25-47) % Luce % (Auto) 14.9 H (1-9) % Eos % (Auto) 0.3 (0-6) % Baso % (Auto) 1.1 (0-2) % Absolute Neuts (auto) 9.1 H (1.5-7.7) 10^3/ul Absolute Lymphs (auto) 2.7 (1.0-4.8) 10^3/ul Absolute Monos (auto) 2.1 H (0-0.8) 10^3/ul Absolute Eos (auto) 0 (0-0.6) 10^3/ul Absolute Basos (auto) 0.2 (0-0.2) 10^3/ul Absolute Nucleated RBC 0.03 10^3/ul Nucleated RBC % 0.2 D-Dimer, Quantitative > 1050 H (Less Than 230) ng/mL Sodium 134 (133-145) mmol/L Potassium 4.2 (3.5-5.0) mmol/L Chloride 100 L (101-111) mmol/L Carbon Dioxide 27 (22-32) mmol/L Anion Gap 7 (2-11) mmol/L BUN 21 (6-24) mg/dL Creatinine 0.94 (0.67-1.17) mg/dL Est GFR ( Amer) 105.6 (>60) Est GFR (Non-Af Amer) 82.1 (>60) BUN/Creatinine Ratio 22.3 H (8-20) Glucose 100 (70-100) mg/dL Lactic Acid (0.5-2.0) mmol/L Calcium 9.3 (8.6-10.3) mg/dL Total Bilirubin 0.70 (0.2-1.0) mg/dL AST 28 (13-39) U/L ALT 24 (7-52) U/L Alkaline Phosphatase 70 (34-104) U/L Troponin I 0.00 (<0.04) ng/mL B-Natriuretic Peptide ( - 100) pg/mL Total Protein 6.4 (6.4-8.9) g/dL Albumin 4.2 (3.2-5.2) g/dL Globulin 2.2 (2-4) g/dL Albumin/Globulin Ratio 1.9 (1-3) 09/04/16 09/04/16 Range/Units 03:30 03:30 WBC (3.5-10.8) 10^3/ul RBC (4.0-5.4) 10^6/ul Hgb (14.0-18.0) g/dl Hct (42-52) % MCV (80-94) fL MCH (27-31) pg MCHC (31-36) g/dl RDW (10.5-15) % Plt Count (150-450) 10^3/ul MPV (7.4-10.4) um3 Neut % (Auto) (38-83) % Lymph % (Auto) (25-47) % Luce % (Auto) (1-9) % Eos % (Auto) (0-6) % Baso % (Auto) (0-2) % Absolute Neuts (auto) (1.5-7.7) 10^3/ul Absolute Lymphs (auto) (1.0-4.8) 10^3/ul Absolute Monos (auto) (0-0.8) 10^3/ul Absolute Eos (auto) (0-0.6) 10^3/ul Absolute Basos (auto) (0-0.2) 10^3/ul Absolute Nucleated RBC 10^3/ul Nucleated RBC % D-Dimer, Quantitative (Less Than 230) ng/mL Sodium (133-145) mmol/L Potassium (3.5-5.0) mmol/L Chloride (101-111) mmol/L Carbon Dioxide (22-32) mmol/L Anion Gap (2-11) mmol/L BUN (6-24) mg/dL Creatinine (0.67-1.17) mg/dL Est GFR ( Amer) (>60) Est GFR (Non-Af Amer) (>60) BUN/Creatinine Ratio (8-20) Glucose (70-100) mg/dL Lactic Acid 0.8 (0.5-2.0) mmol/L Calcium (8.6-10.3) mg/dL Total Bilirubin (0.2-1.0) mg/dL AST (13-39) U/L ALT (7-52) U/L Alkaline Phosphatase (34-104) U/L Troponin I (<0.04) ng/mL B-Natriuretic Peptide 59 ( - 100) pg/mL Total Protein (6.4-8.9) g/dL Albumin (3.2-5.2) g/dL Globulin (2-4) g/dL Albumin/Globulin Ratio (1-3) Result Diagrams: 09/04/16 03:30 09/04/16 03:30 Lab Statement: Any lab studies that have been ordered have been reviewed, and results considered in the medical decision making process. - Radiology CXR Xray Interpretation: No Acute Changes - Consistent with COPD Radiology Interpretation Completed By: ED Physician - EKG 1 EKG Rhythm: Sinus Tachycardia Disposition - Course Course Of Treatment: Pt is a 61 y/o M BIBA presenting with COPD exacerbation, worsening over the past three days. Per EMS, pt denies CP. Pt given CPAP in ambulance. Pt given Albuterol in ED. EKG shows sinus tachy. Trop is negative. CXR is consistent with COPD. - Diagnoses Provider Diagnoses: COPD with exacerbation - Physician Notifications Discussed Care Of Patient With: Dr. Han, hospitalist Time Discussed With Above Provider: 04:12 Instructed by Provider To: Admit As Inpatient Discharge - Discharge Plan Condition: Fair Disposition: ADMITTED TO [facility] documentation as recorded by the Yomaira wilson SooYoung accurately reflects the service I personally performed and the decisions made by me, Dejon Barrera MD.
[2016-09-04] MEDS ORDERED: Enoxaparin(*) 80 MG/0.8 ML SYR SUBCUT ONE (05:00)
[2016-09-04] MEDS ORDERED: Ondansetron INJ* 2 MG/ML VIAL IV PRN (05:04)
[2016-09-04] MEDS ORDERED: Melatonin (NF) 3 MG TAB PO PRN (05:04)
[2016-09-04] MEDS ORDERED: Acetaminophen TAB* 325 MG PO PRN (05:04)
--- NOTE | 2016-09-04 05:27 | HP ---
H&P (Free Text) History and Physical: PCP: Bro Carver MD Date/Time of Evaluation: 09/03/2016 0430 CC: SOB HPI: Mr Singer is a 61YO male HX lymphoma s/p splenectomy, COPD 2L night oxygen who reports SOB starting for which he was seen and started on levofloxacin 500mg daily and prednisone 40mg daily which usually works well for his COPD. Despite this he continued to gradually worsen with more rapid, but not sudden worsening today. He increased his home O2 to 5L without much improvement and so awoke his who called EMS. He reports a non-productive cough and intermittent sweats for the past 2 days, but denies chest pain, N/V, F /C, palpitations, light-headedness, black/bloody stools, or other issues. He arrived on CPAP and was converted to BiPap. Reports pneumococcal vaccine is up- to-date. 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 Multiple Vitamin [Multivitamins] 1 tab PO DAILY 09/03/13 Bupropion HCl [Bupropion HCl Sr] 300 mg PO DAILY 04/18/14 Amlodipine Besylate [Norvasc 2.5 mg tab] 2.5 mg PO DAILY 04/10/16 Budesonide/Formote 160/4.5(NF) [Symbicort 160/4.5 (NF)] 2 inhaler INH BID Famotidine [Pepcid] 20 mg PO BID 04/10/16 Rosuvastatin (NF) [Crestor (NF)] 10 mg PO DAILY 04/10/16 Valacyclovir HCl [Valtrex] 500 mg PO DAILY 04/10/16 Spiriva Inhaler DEVICE* [Tiotropium Inhaler DEVICE*] 1 inh INH DAILY #1 device 04/11/16 Tiotropium CAP.INH* [Spiriva CAP.INH*] 1 cap.inh INH DAILY #30 cap.inh 04/11/16 predniSONE TAB* [Deltasone TAB*] 10 mg PO DAILY #50 tab 04/11/16 Allergies No Known Allergies Allergy (Verified 09/04/16 04:10) PSurgHx splenectomy 2nd lymphoma Achilles tendon repair SocHx: former smoker quit in 2014 w/ ~40PYHX, denies alcohol & recreational drugs; lives with his ; full code status FamHx: Father: lymphoma, CAD, alive in his 80s; Mother: DM2, alive in her 80s ROS: as above, otherwise reviewed and all were negative Constitutional: NAD, normally developed, well-nourished white male vitals: Vital Signs Temp 36.5 C 09/04/16 04:52 Pulse 111 09/04/16 04:53 Resp 20 09/04/16 04:53 BP 115/80 09/04/16 04:52 Pulse Ox 94 09/04/16 04:53 Intake & Output 09/03/16 09/03/16 09/04/16 11:59 23:59 11:59 Weight 71.214 kg HEENM: atraumatic; sclera/conjunctiva: ; hearing: clinically intact; oropharynx : BiPap in place, clear Neck: soft tissue: non-tender; thyroid: normal Pulmonary: BiPap in place, prolonged expiration w/ mid- to end-expiratory wheeze B, fair to poor aeration, no accessory muscle use CV: RR/RR, normal S1S2, no carotid bruit, no jugular venous distention, 2+ B DP/ PT, no edema Abdominal: soft, non-distended, non-tender, no rebound/guarding/rigidity, normoactive bowel sounds, no hepatosplenomegaly or masses, no costovertebral angle tenderness Musculoskeletal: general: grossly intact; gait: stable Integumental: normal appearance and texture of exposed skin Psychiatric orientation: AA&O to PPS affect: calm mood: pleasant eye contact: good content: reliable responses: timely insight: fair to good Testing: Lab Results 09/04/16 09/04/16 09/04/16 Range/Units 03:30 03:30 03:30 WBC 14.1 H (3.5-10.8) 10^3/ul RBC 4.46 (4.0-5.4) 10^6/ul Hgb 14.5 (14.0-18.0) g/dl Hct 43 (42-52) % MCV 96 H (80-94) fL MCH 32 H (27-31) pg MCHC 34 (31-36) g/dl RDW 14 (10.5-15) % Plt Count 312 (150-450) 10^3/ul MPV 10 (7.4-10.4) um3 Neut % (Auto) 64.3 (38-83) % Lymph % (Auto) 19.4 L (25-47) % [place] % (Auto) 14.9 H (1-9) % Eos % (Auto) 0.3 (0-6) % Baso % (Auto) 1.1 (0-2) % Absolute Neuts (auto) 9.1 H (1.5-7.7) 10^3/ul Absolute Lymphs (auto) 2.7 (1.0-4.8) 10^3/ul Absolute Monos (auto) 2.1 H (0-0.8) 10^3/ul Absolute Eos (auto) 0 (0-0.6) 10^3/ul Absolute Basos (auto) 0.2 (0-0.2) 10^3/ul Absolute Nucleated RBC 0.03 10^3/ul Nucleated RBC % 0.2 D-Dimer, Quantitative > 1050 H (Less Than 230) ng/mL Sodium 134 (133-145) mmol/L Potassium 4.2 (3.5-5.0) mmol/L Chloride 100 L (101-111) mmol/L Carbon Dioxide 27 (22-32) mmol/L Anion Gap 7 (2-11) mmol/L BUN 21 (6-24) mg/dL Creatinine 0.94 (0.67-1.17) mg/dL Est GFR ( Amer) 105.6 (>60) Est GFR (Non-Af Amer) 82.1 (>60) BUN/Creatinine Ratio 22.3 H (8-20) Glucose 100 (70-100) mg/dL Lactic Acid (0.5-2.0) mmol/L Calcium 9.3 (8.6-10.3) mg/dL Total Bilirubin 0.70 (0.2-1.0) mg/dL AST 28 (13-39) U/L ALT 24 (7-52) U/L Alkaline Phosphatase 70 (34-104) U/L Troponin I 0.00 (<0.04) ng/mL B-Natriuretic Peptide ( - 100) pg/mL Total Protein 6.4 (6.4-8.9) g/dL Albumin 4.2 (3.2-5.2) g/dL Globulin 2.2 (2-4) g/dL Albumin/Globulin Ratio 1.9 (1-3) 09/04/16 09/04/16 Range/Units 03:30 03:30 WBC (3.5-10.8) 10^3/ul RBC (4.0-5.4) 10^6/ul Hgb (14.0-18.0) g/dl Hct (42-52) % MCV (80-94) fL MCH (27-31) pg MCHC (31-36) g/dl RDW (10.5-15) % Plt Count (150-450) 10^3/ul MPV (7.4-10.4) um3 Neut % (Auto) (38-83) % Lymph % (Auto) (25-47) % [place] % (Auto) (1-9) % Eos % (Auto) (0-6) % Baso % (Auto) (0-2) % Absolute Neuts (auto) (1.5-7.7) 10^3/ul Absolute Lymphs (auto) (1.0-4.8) 10^3/ul Absolute Monos (auto) (0-0.8) 10^3/ul Absolute Eos (auto) (0-0.6) 10^3/ul Absolute Basos (auto) (0-0.2) 10^3/ul Absolute Nucleated RBC 10^3/ul Nucleated RBC % D-Dimer, Quantitative (Less Than 230) ng/mL Sodium (133-145) mmol/L Potassium (3.5-5.0) mmol/L Chloride (101-111) mmol/L Carbon Dioxide (22-32) mmol/L Anion Gap (2-11) mmol/L BUN (6-24) mg/dL Creatinine (0.67-1.17) mg/dL Est GFR ( Amer) (>60) Est GFR (Non-Af Amer) (>60) BUN/Creatinine Ratio (8-20) Glucose (70-100) mg/dL Lactic Acid 0.8 (0.5-2.0) mmol/L Calcium (8.6-10.3) mg/dL Total Bilirubin (0.2-1.0) mg/dL AST (13-39) U/L ALT (7-52) U/L Alkaline Phosphatase (34-104) U/L Troponin I (<0.04) ng/mL B-Natriuretic Peptide 59 ( - 100) pg/mL Total Protein (6.4-8.9) g/dL Albumin (3.2-5.2) g/dL Globulin (2-4) g/dL Albumin/Globulin Ratio (1-3) ECG, personally reviewed: sinus tachycardia, rate 110, no ischemia CXR, personally reviewed: RLL infiltrate CTA chest: ordered, pending Impression: 61M presenting with gradual onset SOB with more rapid worsening today consistent with COPD exacerbation likely 2nd RLL pneumonia VS PE DIAGNOSIS & PLAN Primary COPD exacerbation : NIPPV protocol : ICU monitoring : albuterol nebs : mometasone/formoterol : tiotropium : IV methylprednisolone : supplemental oxygen : incentive spirometry RLL pneumonia : IVFs : IV azithromycin & ceftriaxone : guaifenesin : blood & sputum CXs : urine Legionella & S pneumo antigens possible PE : one-time dose of enoxaparin 70mg : check CTA chest Secondary HTN : continue amlodipine HLD : continue rosuvastatin depression/anxiety : continue bupropion GERD : continue famotidine Admission Rational: inpatient for COPD exacerbation with possible RLL pneumonia vs PE requiring BiPap and ICU monitoring to prevent further decompensation, inappropriate for outpatient status DVTp: enoxaparin SQ x1st 12H, then will need reassessing Code Status: full HCP:
[2016-09-04] MEDS: NS 0.9% 1000 ML* 1,000 ML IV SCH ×4 (05:30→15:17)
[2016-09-04] MEDS ORDERED: methylPREDNISolone 125 MG* 2 ML VIAL IV ONE (05:30)
[2016-09-04 05:34] LABS: EPAP 5; FIO2 40; IPAP 12
[2016-09-04] MEDS ORDERED: NS 0.9% 50 ML* 50 ML ONE (05:36)
[2016-09-04 05:38] LABS: PCO2 Arterial 43 mmHg (35-45)
[2016-09-04] MEDS: Omeprazole CAP* 20 MG PO SCH (05:43)
[2016-09-04] MEDS: cefTRIAXone VIAL(*) 1,000 MG in NS 0.9% 50 ML* 50 ML IVPB SCH (05:43)
[2016-09-04] MEDS: CMCS - Melatonin (NF) 3 MG TAB PO PRN (06:14)
[2016-09-04] MEDS: Azithromycin IV(*) 500 MG in NS 0.9% 250 ML* 250 ML IVPB SCH (06:16)
[2016-09-04] MEDS: Albuterol 2.5 MG/3 ML NEB.SOL* (0.083%) INH SCH ×3 (07:11→19:40)
--- NOTE | 2016-09-04 07:51 | RAD ---
HISTORY: Chest pain COMPARISONS: CT of the chest dated August 27, 2016 VIEWS:1: Single frontal portable view of the chest at 4:00 AM FINDINGS: LINES AND TUBES: None. CARDIOMEDIASTINAL SILHOUETTE: The cardiomediastinal silhouette is normal for portable technique. PLEURA: The costophrenic angles are sharp. No pleural abnormalities are noted. LUNG PARENCHYMA: There is pleural parenchymal scarring of the right lung base ABDOMEN: The upper abdomen is clear. There is no subphrenic gas. BONES AND SOFT TISSUES: No bone or soft tissue abnormalities are noted. IMPRESSION: NO ACTIVE CARDIOPULMONARY DISEASE.
--- NOTE | 2016-09-04 07:58 | RAD ---
HISTORY: Shortness of breath COMPARISONS: April 10, 2016 TECHNIQUE: Multiple contiguous axial CT scans of the chest were obtained after the administration of nonionic intravenous contrast, timed to the pulmonary arterial phase of contrast enhancement.. Coronal and sagittal multiplanar reformations are also submitted for review. FINDINGS: NECK AND THYROID: The lower neck and thyroid are unremarkable. CHEST WALL: Again noted are prominent and mildly enlarged axillary lymph nodes. HEART AND PERICARDIUM: The heart is unremarkable. AORTA AND PULMONARY VASCULATURE: There is no pulmonary arterial filling defect to suggest pulmonary embolism. There is no linear filling defect within the aorta to suggest aortic dissection. MEDIASTINUM: There is a subcarinal lymph node measuring up to 1.8 cm in short axis. There are small prevascular, pretracheal, and AP window lymph nodes GANGA: There are bilateral hilar lymph nodes. On the right, these are mildly enlarged measuring up to 1.4 centers in short axis. AIRWAY AND ESOPHAGUS: The airway is unremarkable, without endobronchial filling defect. The esophagus is grossly normal. LUNG PARENCHYMA: There is pleuroparenchymal scarring of the right lung base. There is hyperinflation. There is minimal groundglass centrilobular nodularity in the superior segment of the left lower lobe PLEURA: No pleural abnormalities are noted. UPPER ABDOMEN: There is a partially calcified left renal cyst. This is stable. There is lymphadenopathy along the celiac trunk. This can be identified on the previous examination and is stable BONES AND SOFT TISSUES: No bone or soft tissue abnormalities are noted. OTHER: The appearance is similar to April 10, 2016 IMPRESSION: 1. NO PULMONARY ARTERIAL FILLING DEFECT TO SUGGEST PULMONARY EMBOLISM. 2. MINIMAL GROUND LESS OPACIFICATION OF THE SUPERIOR SEGMENT OF THE LEFT UPPER LOBE, NEW FROM APRIL 10, 2016, SUGGESTIVE OF AN INFLAMMATORY OR INFECTIOUS AIRSPACE PROCESS. 3. PERSISTENT HILAR, MEDIASTINAL, AXILLARY, AND UPPER ABDOMINAL LYMPHADENOPATHY
[2016-09-04] MEDS ORDERED: guaiFENesin ER TAB 600 MG PO SCH (09:00)
[2016-09-04] MEDS ORDERED: Spiriva Inhaler DEVICE* 1 EACH DEVICE ONE (09:00)
[2016-09-04] MEDS ORDERED: Tiotropium CAP.INH* CAP.INH/18 MCG INH SCH (09:00)
[2016-09-04] MEDS: Tiotropium CAP.INH* CAP.INH/18 MCG INH SCH (09:08)
[2016-09-04] MEDS: Mometasone/Formoter 200/5 MDI INH SCH ×2 (09:09→19:52)
[2016-09-04] MEDS: BuPROPion XL* 300 MG TAB.XL PO SCH (09:14)
[2016-09-04] MEDS: ValACYclovir (*) 500 MG TAB PO SCH (09:14)
[2016-09-04] MEDS: Atorvastatin* 20 MG TAB PO SCH (09:15)
[2016-09-04] MEDS: Docusate CAP* 100 MG PO SCH ×2 (09:15→20:54)
[2016-09-04] MEDS: amLODIPine TAB* 5 MG PO SCH (09:15)
[2016-09-04] MEDS: Famotidine TAB* 20 MG PO SCH ×2 (09:15→20:54)
[2016-09-04] MEDS ORDERED: methylPREDNISolone SOD 40 MG* 1 ML VIAL ONE (17:01)
[2016-09-04] MEDS: methylPREDNISolone SOD 40 MG* 1 ML VIAL IV SCH (17:04)
--- NOTE | 2016-09-04 17:27 | PN ---
Progress Note - Progress Note Note: Pt seen for brief follow up afternoon 09/04/16. He states he feels much better now than he did last evening. He states what is bothering him now and keeping him SOB is persistent coughing and feeling like he can not catch his breath. Will start prn robitussin AC. Continue BiPAP for dyspnea. Will add prn morphine to help with his sense of air hunger. Will follow up tomorrow AM.
[2016-09-04] MEDS ORDERED: Temazepam CAP* 15 MG PO PRN (21:03)
[2016-09-05] MEDS: Albuterol 2.5 MG/3 ML NEB.SOL* (0.083%) INH SCH ×6 (01:13→23:03)
[2016-09-05] MEDS: methylPREDNISolone SOD 40 MG* 1 ML VIAL IV SCH ×3 (01:53→16:21)
[2016-09-05] MEDS: cefTRIAXone VIAL(*) 1,000 MG in NS 0.9% 50 ML* 50 ML IVPB SCH (05:10)
[2016-09-05] MEDS: Azithromycin IV(*) 500 MG in NS 0.9% 250 ML* 250 ML IVPB SCH (05:14)
[2016-09-05] MEDS: Omeprazole CAP* 20 MG PO SCH (05:14)
[2016-09-05] MEDS: Enoxaparin(*) 40 MG/0.4 ML SYR SUBCUT SCH (05:14)
[2016-09-05 05:18] LABS: Hematocrit 40 % (42-52); Hemoglobin 13.3 g/dl (14.0-18.0); Mean Corpuscular HGB Conc 34 g/dl (31-36); Mean Corpuscular Hemoglobin 33 pg (27-31); Mean Corpuscular Volume 97 fL (80-94); Mean Platelet Volume 10 um3 (7.4-10.4); Red Blood Count 4.06 10^6/ul (4.0-5.4); Red Cell Distribution Width 14 % (10.5-15); White Blood Count 13.1 10^3/ul (3.5-10.8)
[2016-09-05 05:38] LABS: BUN/Creatinine Ratio 29.1 (8-20); Calcium 8.9 mg/dL (8.6-10.3); EGFR African American 129.1 (>60); EGFR Non-African American 100.4 (>60); Potassium 4.4 mmol/L (3.5-5.0)
[2016-09-05] MEDS: Tiotropium CAP.INH* CAP.INH/18 MCG INH SCH (07:29)
[2016-09-05] MEDS: Mometasone/Formoter 200/5 MDI INH SCH ×2 (07:29→19:03)
[2016-09-05] MEDS ORDERED: Docusate CAP* 100 MG PO PRN (07:58)
--- NOTE | 2016-09-05 08:02 | PN ---
Subjective Date of Service: 09/05/16 Interval History: CC: SOB Pt is feeling slightly better today but still markedly SOB when off the BiPAP. His cough is less with sitting up. He states he slept very poorly overnight. Objective Active Medications: Acetaminophen (Tylenol Tab*) 650 mg PO Q6H PRN PRN Reason: FEVER/PAIN Albuterol (Ventolin 2.5 Mg/3 Ml Neb.Violet*) 2.5 mg INH Q2H PRN PRN Reason: SOB/WHEEZING Albuterol (Ventolin 2.5 Mg/3 Ml Neb.Violet*) 2.5 mg INH RT.[id number] AWAKE [facility] Last Admin: 09/05/16 07:29 Dose: 2.5 mg Amlodipine Besylate (Norvasc Tab*) 2.5 mg PO DAILY [facility] Last Admin: 09/04/16 09:15 Dose: 2.5 mg Atorvastatin Calcium (Lipitor*) 10 mg PO DAILY [facility] PRN Reason: Protocol Last Admin: 09/04/16 09:15 Dose: 10 mg Bupropion HCl (Bupropion Xl*) 300 mg PO DAILY [facility] Last Admin: 09/04/16 09:14 Dose: 300 mg Docusate Sodium (Colace Cap*) 200 mg PO BID [facility] Last Admin: 09/04/16 20:54 Dose: 200 mg Enoxaparin Sodium (Lovenox(*)) 40 mg SUBCUT Q24H [facility] Last Admin: 09/05/16 05:14 Dose: 40 mg Famotidine (Pepcid Tab*) 20 mg PO BID [facility] Last Admin: 09/04/16 20:54 Dose: 20 mg Guaifenesin/Codeine Phosphate (Robitussin Ac 100mg-10mg*) 5 ml PO Q4H PRN PRN Reason: COUGH Ceftriaxone Sodium 1,000 mg/ (Sodium Chloride) 50 mls @ 200 mls/hr IVPB Q24H [facility] Last Admin: 09/05/16 05:10 Dose: 200 mls/hr Azithromycin 500 mg/ Sodium (Chloride) 250 mls @ 250 mls/hr IVPB Q24H [facility] Last Admin: 09/05/16 05:14 Dose: 250 mls/hr Lorazepam (Ativan Inj*) 0.5 mg IV PUSH BEDTIME PRN PRN Reason: INSOMNIA Melatonin (Melatonin (Nf)) 3 mg PO BEDTIME PRN; Protocol PRN Reason: Sleep Last Admin: 09/04/16 06:14 Dose: 3 mg Methylprednisolone Sodium Succinate (Solu-Medrol 40 Mg) 40 mg IV Q8H [facility] Last Admin: 09/05/16 01:53 Dose: 40 mg Mometasone Furoate/Formoterol Fumar (Dulera 200/5 Mdi*) 2 puff INH BID [facility] Last Admin: 09/05/16 07:29 Dose: 2 puff Morphine Sulfate (Morphine Inj (Syringe)*) 2 mg IV Q4H PRN PRN Reason: air hunger Omeprazole (Prilosec Cap*) 20 mg PO DAILY@0600 [facility] Last Admin: 09/05/16 05:14 Dose: 20 mg Ondansetron HCl (Zofran Inj*) 4 mg IV Q6H PRN PRN Reason: NAUSEA Tiotropium Cooter (Spiriva Cap.Inh*) 1 cap INH DAILY [facility] Last Admin: 09/05/16 07:29 Dose: 1 cap Valacyclovir HCl (Valtrex 500 Mg (*)) 500 mg PO DAILY [facility] PRN Reason: Protocol Last Admin: 09/04/16 09:14 Dose: 500 mg Vital Signs 09/04/16 09/04/16 09/04/16 08:00 08:30 09:00 Temperature Pulse Rate 102 92 93 Respiratory 26 19 20 Rate Blood Pressure 128/72 112/75 100/64 (mmHg) O2 Sat by Pulse 97 95 96 Oximetry 09/04/16 09/04/16 09/04/16 09:30 10:00 10:30 Temperature Pulse Rate 98 88 80 Respiratory 19 21 19 Rate Blood Pressure 105/75 111/72 100/69 (mmHg) O2 Sat by Pulse 96 96 96 Oximetry 09/04/16 09/04/16 09/04/16 11:00 11:30 11:36 Temperature 97.8 F Pulse Rate 91 97 Respiratory 21 22 Rate Blood Pressure 107/66 112/76 (mmHg) O2 Sat by Pulse 97 96 Oximetry 09/04/16 09/04/16 09/04/16 12:00 12:30 12:39 Temperature Pulse Rate 95 92 96 Respiratory 20 19 20 Rate Blood Pressure 111/69 109/75 (mmHg) O2 Sat by Pulse 93 95 95 Oximetry 09/04/16 09/04/16 09/04/16 13:00 13:30 14:00 Temperature Pulse Rate 95 93 76 Respiratory 24 23 19 Rate Blood Pressure 107/80 116/64 103/59 (mmHg) O2 Sat by Pulse 96 96 96 Oximetry 09/04/16 09/04/16 09/04/16 14:30 15:00 15:03 Temperature 98.5 F Pulse Rate 71 90 Respiratory 25 24 Rate Blood Pressure 130/72 110/49 (mmHg) O2 Sat by Pulse 91 92 Oximetry 09/04/16 09/04/16 09/04/16 15:30 16:00 16:30 Temperature Pulse Rate 94 101 100 Respiratory 24 26 23 Rate Blood Pressure 105/68 121/75 113/78 (mmHg) O2 Sat by Pulse 96 96 92 Oximetry 09/04/16 09/04/16 09/04/16 17:00 17:30 18:00 Temperature Pulse Rate 97 95 93 Respiratory 26 24 23 Rate Blood Pressure 117/74 111/65 116/65 (mmHg) O2 Sat by Pulse 92 95 96 Oximetry 09/04/16 09/04/16 09/04/16 18:30 19:00 19:25 Temperature 98.1 F Pulse Rate 101 101 Respiratory 26 27 Rate Blood Pressure 126/104 113/75 (mmHg) O2 Sat by Pulse 97 96 Oximetry 09/04/16 09/04/16 09/04/16 19:30 19:52 20:00 Temperature Pulse Rate 102 94 84 Respiratory 22 23 23 Rate Blood Pressure 126/85 (mmHg) O2 Sat by Pulse 94 103 96 Oximetry 09/04/16 09/04/16 09/04/16 20:30 21:00 21:30 Temperature Pulse Rate 101 108 97 Respiratory 23 28 23 Rate Blood Pressure 118/84 114/79 126/75 (mmHg) O2 Sat by Pulse 96 95 96 Oximetry 09/04/16 09/04/16 09/04/16 21:57 22:00 22:11 Temperature Pulse Rate 101 Respiratory 22 24 25 Rate Blood Pressure 123/71 (mmHg) O2 Sat by Pulse 95 Oximetry 09/04/16 09/04/16 09/04/16 22:30 23:00 23:30 Temperature Pulse Rate 94 90 71 Respiratory 25 24 20 Rate Blood Pressure 119/76 117/73 96/69 (mmHg) O2 Sat by Pulse 95 95 95 Oximetry 09/05/16 09/05/16 09/05/16 00:00 00:01 00:09 Temperature 97.7 F Pulse Rate 83 85 88 Respiratory 22 21 23 Rate Blood Pressure 123/79 (mmHg) O2 Sat by Pulse 97 97 96 Oximetry 09/05/16 09/05/16 09/05/16 00:30 01:00 01:30 Temperature Pulse Rate 89 56 95 Respiratory 19 20 26 Rate Blood Pressure 121/94 121/80 129/77 (mmHg) O2 Sat by Pulse 99 82 98 Oximetry 09/05/16 09/05/16 09/05/16 02:00 02:13 02:30 Temperature Pulse Rate 86 75 Respiratory 21 18 18 Rate Blood Pressure 120/70 100/69 (mmHg) O2 Sat by Pulse 98 96 Oximetry 09/05/16 09/05/16 09/05/16 03:00 03:30 04:00 Temperature 97.4 F Pulse Rate 75 71 84 Respiratory 18 18 23 Rate Blood Pressure 112/63 121/78 131/84 (mmHg) O2 Sat by Pulse 96 96 98 Oximetry 09/05/16 09/05/16 09/05/16 04:30 05:00 05:08 Temperature Pulse Rate 88 94 Respiratory 23 26 26 Rate Blood Pressure 120/85 146/79 (mmHg) O2 Sat by Pulse 95 95 Oximetry 09/05/16 09/05/16 09/05/16 05:30 06:00 07:32 Temperature Pulse Rate 91 88 90 Respiratory 23 24 20 Rate Blood Pressure 118/86 127/82 (mmHg) O2 Sat by Pulse 96 96 95 Oximetry 09/05/16 07:38 Temperature 98 F Pulse Rate Respiratory Rate Blood Pressure (mmHg) O2 Sat by Pulse Oximetry Oxygen Devices in Use Now: CPAP/BiPAP Appearance: Middle aged male sitting up in bed, tachypnic with mild respiratory distress when off the BiPAP Eyes: No Scleral Icterus Ears/Nose/Mouth/Throat: Mucous Membranes Moist Respiratory: Symmetrical Chest Expansion and Respiratory Effort, - - markedly diminished breath sounds in all lung patricio, + expiratory wheeze Cardiovascular: - - unable to hear heart sounds over noisy respirations, tachycardic on tele Abdominal: NL Sounds; No Tenderness; No Distention Extremities: No Clubbing, Cyanosis Skin: No Rash or Ulcers, No Nodules or Sclerosis Neurological: Alert and Oriented x 3 Result Diagrams: 09/05/16 05:05 09/05/16 05:05 Additional Lab and Data: Lab Results 09/04/16 09/04/16 09/04/16 Range/Units 03:30 03:30 03:30 WBC 14.1 H (3.5-10.8) 10^3/ul RBC 4.46 (4.0-5.4) 10^6/ul Hgb 14.5 (14.0-18.0) g/dl Hct 43 (42-52) % MCV 96 H (80-94) fL MCH 32 H (27-31) pg MCHC 34 (31-36) g/dl RDW 14 (10.5-15) % Plt Count 312 (150-450) 10^3/ul MPV 10 (7.4-10.4) um3 Neut % (Auto) 64.3 (38-83) % Lymph % (Auto) 19.4 L (25-47) % Meeker % (Auto) 14.9 H (1-9) % Eos % (Auto) 0.3 (0-6) % Baso % (Auto) 1.1 (0-2) % Absolute Neuts (auto) 9.1 H (1.5-7.7) 10^3/ul Absolute Lymphs (auto) 2.7 (1.0-4.8) 10^3/ul Absolute Monos (auto) 2.1 H (0-0.8) 10^3/ul Absolute Eos (auto) 0 (0-0.6) 10^3/ul Absolute Basos (auto) 0.2 (0-0.2) 10^3/ul Absolute Nucleated RBC 0.03 10^3/ul Nucleated RBC % 0.2 D-Dimer, Quantitative > 1050 H (Less Than 230) ng/mL Sodium 134 (133-145) mmol/L Potassium 4.2 (3.5-5.0) mmol/L Chloride 100 L (101-111) mmol/L Carbon Dioxide 27 (22-32) mmol/L Anion Gap 7 (2-11) mmol/L BUN 21 (6-24) mg/dL Creatinine 0.94 (0.67-1.17) mg/dL Est GFR ( Amer) 105.6 (>60) Est GFR (Non-Af Amer) 82.1 (>60) BUN/Creatinine Ratio 22.3 H (8-20) Glucose 100 (70-100) mg/dL Lactic Acid (0.5-2.0) mmol/L Calcium 9.3 (8.6-10.3) mg/dL Total Bilirubin 0.70 (0.2-1.0) mg/dL AST 28 (13-39) U/L ALT 24 (7-52) U/L Alkaline Phosphatase 70 (34-104) U/L Troponin I 0.00 (<0.04) ng/mL B-Natriuretic Peptide ( - 100) pg/mL Total Protein 6.4 (6.4-8.9) g/dL Albumin 4.2 (3.2-5.2) g/dL Globulin 2.2 (2-4) g/dL Albumin/Globulin Ratio 1.9 (1-3) 09/04/16 09/04/16 Range/Units 03:30 03:30 WBC (3.5-10.8) 10^3/ul RBC (4.0-5.4) 10^6/ul Hgb (14.0-18.0) g/dl Hct (42-52) % MCV (80-94) fL MCH (27-31) pg MCHC (31-36) g/dl RDW (10.5-15) % Plt Count (150-450) 10^3/ul MPV (7.4-10.4) um3 Neut % (Auto) (38-83) % Lymph % (Auto) (25-47) % Meeker % (Auto) (1-9) % Eos % (Auto) (0-6) % Baso % (Auto) (0-2) % Absolute Neuts (auto) (1.5-7.7) 10^3/ul Absolute Lymphs (auto) (1.0-4.8) 10^3/ul Absolute Monos (auto) (0-0.8) 10^3/ul Absolute Eos (auto) (0-0.6) 10^3/ul Absolute Basos (auto) (0-0.2) 10^3/ul Absolute Nucleated RBC 10^3/ul Nucleated RBC % D-Dimer, Quantitative (Less Than 230) ng/mL Sodium (133-145) mmol/L Potassium (3.5-5.0) mmol/L Chloride (101-111) mmol/L Carbon Dioxide (22-32) mmol/L Anion Gap (2-11) mmol/L BUN (6-24) mg/dL Creatinine (0.67-1.17) mg/dL Est GFR ( Amer) (>60) Est GFR (Non-Af Amer) (>60) BUN/Creatinine Ratio (8-20) Glucose (70-100) mg/dL Lactic Acid 0.8 (0.5-2.0) mmol/L Calcium (8.6-10.3) mg/dL Total Bilirubin (0.2-1.0) mg/dL AST (13-39) U/L ALT (7-52) U/L Alkaline Phosphatase (34-104) U/L Troponin I (<0.04) ng/mL B-Natriuretic Peptide 59 ( - 100) pg/mL Total Protein (6.4-8.9) g/dL Albumin (3.2-5.2) g/dL Globulin (2-4) g/dL Albumin/Globulin Ratio (1-3) Microbiology and Other Data: Microbiology 09/04/16 07:30 Legionella Urinary Antigen - Final Urine Negative Legionella Streptococcus pneumoniae Ag Screen - Final Negative S. pneumo Antigen 09/04/16 05:14 Nasal Screen MRSA (PCR)(ELIZ) - Final Nasal Mrsa Negative Assess/Plan/Problems-Billing Mr Singer is a 61 yo M with a h/o COPD, non-Hodgkins lymphoma in remission, HTN and HLD who presented to the ER with c/o SOB and was admitted to the ICU on BiPAP for a COPD exacerbation. - Patient Problems (1) Acute respiratory failure with hypoxia Current Visit: Yes Status: Acute Code(s): J96.01 - ACUTE RESPIRATORY FAILURE WITH HYPOXIA SNOMED Code(s): 12516189 Comment: The patient requires 6L O2 while off the BiPAP and has 40% FiO2 on BiPAP. His respiratory failure is secondary to COPD exacerbation. (2) COPD with exacerbation Current Visit: Yes Status: Acute Code(s): J44.1 - CHRONIC OBSTRUCTIVE PULMONARY DISEASE W (ACUTE) EXACERBATION SNOMED Code(s): 185033662 Comment: The patient has had only minimal improvement in his symptoms. He continues to be essentially BiPAP dependent though he does not appear to be tiring on the BiPAP. I did discuss with the patient that if the BiPAP fails, we would need to consider intubation. Will continue IV solumedrol 40mg q8hr, albuterol nebs (change to q4hr while awake), spiriva, dulera and Abx. Will continue both ceftriaxone and azithromycin for now. (3) Anxiety and depression Current Visit: Yes Status: Acute Code(s): F41.9 - ANXIETY DISORDER, UNSPECIFIED; F32.9 - MAJOR DEPRESSIVE DISORDER, SINGLE EPISODE, UNSPECIFIED SNOMED Code(s): 083149519 Comment: Continue bupropion XL and ativan at night. (4) HTN (hypertension) Current Visit: Yes Status: Chronic Code(s): I10 - ESSENTIAL (PRIMARY) HYPERTENSION SNOMED Code(s): 03863829 Comment: BP is under good control on amlodipine 2.5mg daily. (5) HLD (hyperlipidemia) Current Visit: Yes Status: Chronic Code(s): E78.5 - HYPERLIPIDEMIA, UNSPECIFIED SNOMED Code(s): 59016496 Comment: Continue statin. (6) GERD (gastroesophageal reflux disease) Current Visit: Yes Status: Chronic Code(s): K21.9 - GASTRO-ESOPHAGEAL REFLUX DISEASE WITHOUT ESOPHAGITIS SNOMED Code(s): 455176593 Comment: Continue famotidine. (7) DVT prophylaxis Current Visit: Yes Status: Acute Code(s): TYL5948 - SNOMED Code(s): 037370818 Comment: lovenox (8) Full code status Current Visit: Yes Status: Acute Code(s): Z78.9 - OTHER SPECIFIED HEALTH STATUS SNOMED Code(s): 256515353
[2016-09-05] MEDS: Morphine INJ* 2 MG/ML 1 ML SYRINGE IV PRN ×4 (08:03→21:46)
[2016-09-05] MEDS: Atorvastatin* 20 MG TAB PO SCH (09:14)
[2016-09-05] MEDS: Famotidine TAB* 20 MG PO SCH ×2 (09:15→21:46)
[2016-09-05] MEDS: BuPROPion XL* 300 MG TAB.XL PO SCH (09:15)
[2016-09-05] MEDS: amLODIPine TAB* 5 MG PO SCH (09:16)
[2016-09-05] MEDS: ValACYclovir (*) 500 MG TAB PO SCH (09:16)
[2016-09-05] MEDS: guaiFENesin/CODIEN 100MG-10MG* 5 ML UDC PO PRN (09:16)
[2016-09-05] MEDS ORDERED: methylPREDNISolone SOD 40 MG* 1 ML VIAL IV SCH (13:00)
[2016-09-06] MEDS: methylPREDNISolone SOD 40 MG* 1 ML VIAL IV SCH ×3 (00:53→16:44)
[2016-09-06] MEDS: LORazepam INJ* 2 MG/ML 1 ML VIAL IV PUSH PRN ×2 (01:00→23:40)
[2016-09-06] MEDS: Albuterol 2.5 MG/3 ML NEB.SOL* (0.083%) INH SCH ×6 (02:50→23:45)
[2016-09-06] MEDS: Morphine INJ* 2 MG/ML 1 ML SYRINGE IV PRN ×4 (03:23→20:14)
[2016-09-06] MEDS: cefTRIAXone VIAL(*) 1,000 MG in NS 0.9% 50 ML* 50 ML IVPB SCH (05:49)
[2016-09-06] MEDS: Enoxaparin(*) 40 MG/0.4 ML SYR SUBCUT SCH (05:49)
[2016-09-06] MEDS: Azithromycin IV(*) 500 MG in NS 0.9% 250 ML* 250 ML IVPB SCH (06:24)
--- NOTE | 2016-09-06 07:24 | PN ---
Subjective Date of Service: 09/06/16 Interval History: CC: SOB Pt is feeling better. He states he was able to spend more time off BiPAP last evening. He still has coughing fits but states the Robitussin AC has helped. He also states that the morphine helps with the air hunger. He denies any pain. He is feeling somewhat discouraged that his breathing is not a lot better than it has been. Objective Active Medications: Acetaminophen (Tylenol Tab*) 650 mg PO Q6H PRN PRN Reason: FEVER/PAIN Albuterol (Ventolin 2.5 Mg/3 Ml Neb.Violet*) 2.5 mg INH Q2H PRN PRN Reason: SOB/WHEEZING Albuterol (Ventolin 2.5 Mg/3 Ml Neb.Violet*) 2.5 mg INH [id number] AWAKE [facility] Last Admin: 09/06/16 06:27 Dose: 2.5 mg Amlodipine Besylate (Norvasc Tab*) 2.5 mg PO DAILY [facility] Last Admin: 09/05/16 09:16 Dose: 2.5 mg Atorvastatin Calcium (Lipitor*) 10 mg PO DAILY [facility] PRN Reason: Protocol Last Admin: 09/05/16 09:14 Dose: 10 mg Bupropion HCl (Bupropion Xl*) 300 mg PO DAILY [facility] Last Admin: 09/05/16 09:15 Dose: 300 mg Docusate Sodium (Colace Cap*) 200 mg PO BID PRN PRN Reason: CONSTIPATION Last Admin: 09/05/16 09:15 Dose: 200 mg Enoxaparin Sodium (Lovenox(*)) 40 mg SUBCUT Q24H [facility] Last Admin: 09/06/16 05:49 Dose: 40 mg Famotidine (Pepcid Tab*) 20 mg PO BID [facility] Last Admin: 09/05/16 21:46 Dose: 20 mg Guaifenesin/Codeine Phosphate (Robitussin Ac 100mg-10mg*) 5 ml PO Q4H PRN PRN Reason: COUGH Last Admin: 09/05/16 09:16 Dose: 5 ml Ceftriaxone Sodium 1,000 mg/ (Sodium Chloride) 50 mls @ 200 mls/hr IVPB Q24H [facility] Last Admin: 09/06/16 05:49 Dose: 200 mls/hr Azithromycin 500 mg/ Sodium (Chloride) 250 mls @ 250 mls/hr IVPB Q24H [facility] Last Admin: 09/06/16 06:24 Dose: 250 mls/hr Lorazepam (Ativan Inj*) 0.5 mg IV PUSH BEDTIME PRN PRN Reason: INSOMNIA Last Admin: 09/06/16 01:00 Dose: 0.5 mg Melatonin (Melatonin (Nf)) 3 mg PO BEDTIME PRN; Protocol PRN Reason: Sleep Last Admin: 09/04/16 06:14 Dose: 3 mg Methylprednisolone Sodium Succinate (Solu-Medrol 40 Mg) 40 mg IV Q8H [facility] Last Admin: 09/06/16 00:53 Dose: 40 mg Mometasone Furoate/Formoterol Fumar (Dulera 200/5 Mdi*) 2 puff INH BID [facility] Last Admin: 09/05/16 19:03 Dose: 2 puff Morphine Sulfate (Morphine Inj (Syringe)*) 2 mg IV Q4H PRN PRN Reason: air hunger Last Admin: 09/06/16 03:23 Dose: 2 mg Ondansetron HCl (Zofran Inj*) 4 mg IV Q6H PRN PRN Reason: NAUSEA Tiotropium Taylor (Spiriva Cap.Inh*) 1 cap INH DAILY [facility] Last Admin: 09/05/16 07:29 Dose: 1 cap Valacyclovir HCl (Valtrex 500 Mg (*)) 500 mg PO DAILY [facility] PRN Reason: Protocol Last Admin: 09/05/16 09:16 Dose: 500 mg Vital Signs 09/05/16 09/05/16 09/05/16 07:30 07:32 07:38 Temperature 98 F Pulse Rate 84 90 Respiratory 21 20 Rate Blood Pressure 140/81 (mmHg) O2 Sat by Pulse 98 95 Oximetry 09/05/16 09/05/16 09/05/16 08:00 08:03 08:30 Temperature Pulse Rate 101 92 Respiratory 23 26 21 Rate Blood Pressure 122/73 (mmHg) O2 Sat by Pulse 96 96 Oximetry 09/05/16 09/05/16 09/05/16 09:00 09:03 09:30 Temperature Pulse Rate 98 94 101 Respiratory 24 20 21 Rate Blood Pressure 133/77 130/75 (mmHg) O2 Sat by Pulse 93 88 98 Oximetry 09/05/16 09/05/16 09/05/16 10:00 10:30 11:00 Temperature Pulse Rate 81 87 79 Respiratory 17 18 19 Rate Blood Pressure 115/67 134/92 119/83 (mmHg) O2 Sat by Pulse 100 97 99 Oximetry 09/05/16 09/05/16 09/05/16 11:15 11:30 12:00 Temperature 98 F Pulse Rate 90 99 107 Respiratory 22 24 23 Rate Blood Pressure 134/89 (mmHg) O2 Sat by Pulse 94 98 94 Oximetry 09/05/16 09/05/16 09/05/16 12:07 12:11 12:30 Temperature Pulse Rate 105 94 Respiratory 22 20 17 Rate Blood Pressure 128/72 121/77 (mmHg) O2 Sat by Pulse 95 94 Oximetry 09/05/16 09/05/16 09/05/16 13:00 13:30 14:00 Temperature Pulse Rate 103 90 89 Respiratory 18 16 19 Rate Blood Pressure 130/88 118/82 118/70 (mmHg) O2 Sat by Pulse 95 95 96 Oximetry 09/05/16 09/05/16 09/05/16 14:30 15:00 15:03 Temperature Pulse Rate 89 92 Respiratory 17 17 24 Rate Blood Pressure 125/70 138/94 (mmHg) O2 Sat by Pulse 98 90 Oximetry 09/05/16 09/05/16 09/05/16 15:30 16:00 16:30 Temperature 98.2 F Pulse Rate 92 91 95 Respiratory 17 21 22 Rate Blood Pressure 125/87 130/75 136/93 (mmHg) O2 Sat by Pulse 96 92 97 Oximetry 09/05/16 09/05/16 09/05/16 16:47 17:00 17:30 Temperature Pulse Rate 96 82 Respiratory 22 23 17 Rate Blood Pressure 121/82 123/72 (mmHg) O2 Sat by Pulse 97 96 Oximetry 09/05/16 09/05/16 09/05/16 18:00 18:30 19:00 Temperature Pulse Rate 101 85 97 Respiratory 22 19 22 Rate Blood Pressure 141/86 124/88 94/74 (mmHg) O2 Sat by Pulse 93 97 97 Oximetry 09/05/16 09/05/16 09/05/16 19:12 19:30 20:00 Temperature 97.4 F Pulse Rate 85 73 Respiratory 19 18 Rate Blood Pressure 130/85 136/78 (mmHg) O2 Sat by Pulse 97 98 Oximetry 09/05/16 09/05/16 09/05/16 20:30 21:00 21:30 Temperature Pulse Rate 83 81 Respiratory 18 18 18 Rate Blood Pressure 137/89 126/93 129/85 (mmHg) O2 Sat by Pulse 96 96 Oximetry 09/05/16 09/05/16 09/05/16 21:46 22:00 22:30 Temperature Pulse Rate 92 78 Respiratory 26 19 17 Rate Blood Pressure 108/74 122/81 (mmHg) O2 Sat by Pulse 98 96 Oximetry 09/05/16 09/05/16 09/05/16 23:00 23:27 23:30 Temperature 96.9 F Pulse Rate 72 78 Respiratory 18 18 Rate Blood Pressure 131/85 138/74 (mmHg) O2 Sat by Pulse 96 98 Oximetry 09/05/16 09/06/16 09/06/16 23:35 00:00 00:01 Temperature Pulse Rate 80 77 73 Respiratory 17 15 15 Rate Blood Pressure 133/73 (mmHg) O2 Sat by Pulse 97 96 97 Oximetry 09/06/16 09/06/16 09/06/16 00:30 01:00 01:30 Temperature Pulse Rate 95 91 68 Respiratory 17 22 16 Rate Blood Pressure 131/87 121/79 109/64 (mmHg) O2 Sat by Pulse 96 95 97 Oximetry 09/06/16 09/06/16 09/06/16 02:00 02:30 03:00 Temperature Pulse Rate 68 Respiratory 17 24 Rate Blood Pressure 107/63 103/70 (mmHg) O2 Sat by Pulse 96 Oximetry 09/06/16 09/06/16 09/06/16 03:05 03:23 03:30 Temperature Pulse Rate 93 Respiratory 24 29 20 Rate Blood Pressure 143/77 (mmHg) O2 Sat by Pulse 96 Oximetry 09/06/16 09/06/16 09/06/16 04:00 04:30 05:00 Temperature 97.8 F Pulse Rate 102 76 77 Respiratory 20 15 16 Rate Blood Pressure 127/88 112/75 116/80 (mmHg) O2 Sat by Pulse 95 97 97 Oximetry 09/06/16 09/06/16 09/06/16 05:30 06:00 06:27 Temperature Pulse Rate 81 92 93 Respiratory 15 18 20 Rate Blood Pressure 125/94 145/93 (mmHg) O2 Sat by Pulse 99 98 99 Oximetry 09/06/16 09/06/16 06:30 07:00 Temperature Pulse Rate 107 111 Respiratory 21 22 Rate Blood Pressure 125/98 120/104 (mmHg) O2 Sat by Pulse 93 95 Oximetry Oxygen Devices in Use Now: CPAP/BiPAP Appearance: Middle aged male sitting up in bed, NAD Eyes: No Scleral Icterus Ears/Nose/Mouth/Throat: Mucous Membranes Moist Respiratory: Symmetrical Chest Expansion and Respiratory Effort, - - slightly improved breath sounds in all lung patricio, improved air movement but still tight sounding expiratory wheeze Cardiovascular: NL Sounds; No Murmurs; No JVD, No Edema, - - tachycardic but regular Abdominal: NL Sounds; No Tenderness; No Distention Extremities: No Clubbing, Cyanosis Skin: No Rash or Ulcers, No Nodules or Sclerosis Neurological: Alert and Oriented x 3 Result Diagrams: 09/05/16 05:05 09/05/16 05:05 Additional Lab and Data: Lab Results 09/04/16 09/04/16 09/04/16 Range/Units 03:30 03:30 03:30 WBC 14.1 H (3.5-10.8) 10^3/ul RBC 4.46 (4.0-5.4) 10^6/ul Hgb 14.5 (14.0-18.0) g/dl Hct 43 (42-52) % MCV 96 H (80-94) fL MCH 32 H (27-31) pg MCHC 34 (31-36) g/dl RDW 14 (10.5-15) % Plt Count 312 (150-450) 10^3/ul MPV 10 (7.4-10.4) um3 Neut % (Auto) 64.3 (38-83) % Lymph % (Auto) 19.4 L (25-47) % [place] % (Auto) 14.9 H (1-9) % Eos % (Auto) 0.3 (0-6) % Baso % (Auto) 1.1 (0-2) % Absolute Neuts (auto) 9.1 H (1.5-7.7) 10^3/ul Absolute Lymphs (auto) 2.7 (1.0-4.8) 10^3/ul Absolute Monos (auto) 2.1 H (0-0.8) 10^3/ul Absolute Eos (auto) 0 (0-0.6) 10^3/ul Absolute Basos (auto) 0.2 (0-0.2) 10^3/ul Absolute Nucleated RBC 0.03 10^3/ul Nucleated RBC % 0.2 D-Dimer, Quantitative > 1050 H (Less Than 230) ng/mL Sodium 134 (133-145) mmol/L Potassium 4.2 (3.5-5.0) mmol/L Chloride 100 L (101-111) mmol/L Carbon Dioxide 27 (22-32) mmol/L Anion Gap 7 (2-11) mmol/L BUN 21 (6-24) mg/dL Creatinine 0.94 (0.67-1.17) mg/dL Est GFR ( Amer) 105.6 (>60) Est GFR (Non-Af Amer) 82.1 (>60) BUN/Creatinine Ratio 22.3 H (8-20) Glucose 100 (70-100) mg/dL Lactic Acid (0.5-2.0) mmol/L Calcium 9.3 (8.6-10.3) mg/dL Total Bilirubin 0.70 (0.2-1.0) mg/dL AST 28 (13-39) U/L ALT 24 (7-52) U/L Alkaline Phosphatase 70 (34-104) U/L Troponin I 0.00 (<0.04) ng/mL B-Natriuretic Peptide ( - 100) pg/mL Total Protein 6.4 (6.4-8.9) g/dL Albumin 4.2 (3.2-5.2) g/dL Globulin 2.2 (2-4) g/dL Albumin/Globulin Ratio 1.9 (1-3) 09/04/16 09/04/16 Range/Units 03:30 03:30 WBC (3.5-10.8) 10^3/ul RBC (4.0-5.4) 10^6/ul Hgb (14.0-18.0) g/dl Hct (42-52) % MCV (80-94) fL MCH (27-31) pg MCHC (31-36) g/dl RDW (10.5-15) % Plt Count (150-450) 10^3/ul MPV (7.4-10.4) um3 Neut % (Auto) (38-83) % Lymph % (Auto) (25-47) % [place] % (Auto) (1-9) % Eos % (Auto) (0-6) % Baso % (Auto) (0-2) % Absolute Neuts (auto) (1.5-7.7) 10^3/ul Absolute Lymphs (auto) (1.0-4.8) 10^3/ul Absolute Monos (auto) (0-0.8) 10^3/ul Absolute Eos (auto) (0-0.6) 10^3/ul Absolute Basos (auto) (0-0.2) 10^3/ul Absolute Nucleated RBC 10^3/ul Nucleated RBC % D-Dimer, Quantitative (Less Than 230) ng/mL Sodium (133-145) mmol/L Potassium (3.5-5.0) mmol/L Chloride (101-111) mmol/L Carbon Dioxide (22-32) mmol/L Anion Gap (2-11) mmol/L BUN (6-24) mg/dL Creatinine (0.67-1.17) mg/dL Est GFR ( Amer) (>60) Est GFR (Non-Af Amer) (>60) BUN/Creatinine Ratio (8-20) Glucose (70-100) mg/dL Lactic Acid 0.8 (0.5-2.0) mmol/L Calcium (8.6-10.3) mg/dL Total Bilirubin (0.2-1.0) mg/dL AST (13-39) U/L ALT (7-52) U/L Alkaline Phosphatase (34-104) U/L Troponin I (<0.04) ng/mL B-Natriuretic Peptide 59 ( - 100) pg/mL Total Protein (6.4-8.9) g/dL Albumin (3.2-5.2) g/dL Globulin (2-4) g/dL Albumin/Globulin Ratio (1-3) Microbiology and Other Data: Microbiology 09/04/16 07:30 Legionella Urinary Antigen - Final Urine Negative Legionella Streptococcus pneumoniae Ag Screen - Final Negative S. pneumo Antigen 09/04/16 05:14 Nasal Screen MRSA (PCR)(ELIZ) - Final Nasal Mrsa Negative Assess/Plan/Problems-Billing Mr Singer is a 61 yo M with a h/o COPD, non-Hodgkins lymphoma in remission, HTN and HLD who presented to the ER with c/o SOB and was admitted to the ICU on BiPAP for a COPD exacerbation. - Patient Problems (1) Acute respiratory failure with hypoxia Current Visit: Yes Status: Acute Code(s): J96.01 - ACUTE RESPIRATORY FAILURE WITH HYPOXIA SNOMED Code(s): 78019858 Comment: The patient remains hypoxic and requiring BiPAP. Continue to follow respiratory status. (2) COPD with exacerbation Current Visit: Yes Status: Acute Code(s): J44.1 - CHRONIC OBSTRUCTIVE PULMONARY DISEASE W (ACUTE) EXACERBATION SNOMED Code(s): 726230423 Comment: The patient has continued wheezing and tight breath sounds. Will continue to use BiPAP as needed for air hunger/respiratory distress. I will continue standing nebs q4hr, solumedrol 40mg IV q8hr, prn morphine and prn robitussin AC. It is not completely clear that he has a pna but will continue ceftriaxone and azithromycin to complete a full course of Abx. Will ask for Dr. Cho to consult today as he is not improving as much as I would expect. (3) Anxiety and depression Current Visit: Yes Status: Acute Code(s): F41.9 - ANXIETY DISORDER, UNSPECIFIED; F32.9 - MAJOR DEPRESSIVE DISORDER, SINGLE EPISODE, UNSPECIFIED SNOMED Code(s): 820534634 Comment: Continue bupropion XL and ativan at night. (4) HTN (hypertension) Current Visit: Yes Status: Chronic Code(s): I10 - ESSENTIAL (PRIMARY) HYPERTENSION SNOMED Code(s): 13725601 Comment: BP is under good control on amlodipine 2.5mg daily. (5) HLD (hyperlipidemia) Current Visit: Yes Status: Chronic Code(s): E78.5 - HYPERLIPIDEMIA, UNSPECIFIED SNOMED Code(s): 71000867 Comment: Continue statin. (6) GERD (gastroesophageal reflux disease) Current Visit: Yes Status: Chronic Code(s): K21.9 - GASTRO-ESOPHAGEAL REFLUX DISEASE WITHOUT ESOPHAGITIS SNOMED Code(s): 427470898 Comment: Continue famotidine. (7) DVT prophylaxis Current Visit: Yes Status: Acute Code(s): FQO4026 - SNOMED Code(s): 524275569 Comment: lovenox (8) Full code status Current Visit: Yes Status: Acute Code(s): Z78.9 - OTHER SPECIFIED HEALTH STATUS SNOMED Code(s): 576656124
[2016-09-06] MEDS: guaiFENesin/CODIEN 100MG-10MG* 5 ML UDC PO PRN (07:29)
[2016-09-06] MEDS: Tiotropium CAP.INH* CAP.INH/18 MCG INH SCH (08:52)
[2016-09-06] MEDS: Atorvastatin* 20 MG TAB PO SCH (08:52)
[2016-09-06] MEDS: ValACYclovir (*) 500 MG TAB PO SCH (08:53)
[2016-09-06] MEDS: amLODIPine TAB* 5 MG PO SCH (08:53)
[2016-09-06] MEDS: BuPROPion XL* 300 MG TAB.XL PO SCH (08:53)
[2016-09-06] MEDS: Mometasone/Formoter 200/5 MDI INH SCH ×2 (08:54→19:34)
[2016-09-06] MEDS: Famotidine TAB* 20 MG PO SCH ×2 (08:54→20:14)
[2016-09-06] MEDS: Albuterol 2.5 MG/3 ML NEB.SOL* (0.083%) INH PRN (09:41)
--- NOTE | 2016-09-06 15:04 | CONS ---
PULMONARY CONSULTATION REPORT: DATE OF CONSULTATION: 09/06/16 CONSULTATION REQUESTED BY: Dr. James. REASON FOR CONSULT: Evaluation of shortness of breath. HISTORY OF PRESENT ILLNESS: The patient is a 61-year-old male with a history of mantle cell lymphoma, status post splenectomy, COPD on home O2, being evaluated for Trilogy, known to me from outpatient evaluation for severe COPD. The patient has been having progressively worsening COPD recently. He has significant dyspnea on exertion, currently on disability. The patient is also with hypoxemia on exertion, refused oxygen until recently when he started using the oxygen. The patient also was set up with Trilogy, has not received his machine yet. The patient comes in to the emergency room for evaluation of worsening shortness of breath. The patient was recently seen in Urgent Care, was prescribed antibiotics and prednisone with no significant relief, and he decided to come into the ED for further evaluation. The patient also increased home O2 without much benefit. He has been using nebulizers without much relief. The patient had further evaluation in the emergency room, which included CT scan of the chest, I have personally reviewed CT scan of his chest done on admission. The patient with significant emphysematous changes and hyperinflation, no evidence of pulmonary embolism. The patient also with scant ground-glass opacification in the left upper lobe. No significant change, otherwise, from his prior CT scan, which also showed hilar and mediastinal and upper abdominal lymphadenopathy. The patient was found to be in acute hypoxemic and in respiratory failure and was treated with BiPAP, nebulizers, IV steroids and antibiotics. The patient reports slight improvement in shortness of breath today, even though he is audibly wheezing on exam. The patient denies any significant discomfort with his BiPAP machine. The patient denies fevers or chills at home. The patient denies nausea, vomiting, abdominal pain, dark stools, lightheadedness, palpitations. PAST MEDICAL HISTORY: 1. COPD, on 2 liters. 2. Non-Hodgkin's lymphoma, in remission. 3. West Nile encephalitis. 4. Hypertension. 5. Hyperlipidemia. 6. Depression/anxiety. 7. GERD. PAST SURGICAL HISTORY: 1. 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 2. Achilles tendon repair. MEDICATIONS: 1. Multivitamins. 2. Bupropion. 3. Amlodipine. 4. Budesonide and formoterol. 5. Famotidine. 6. Crestor. 7. Valtrex. 8. Spiriva. 9. Deltasone. ALLERGIES: No known drug allergies. FAMILY HISTORY: Lymphoma in father. Mother with diabetes. SOCIAL HISTORY: Former smoker, quit in 2015, 40-pack year smoking history. No alcohol or drug abuse. Lives at home with his . REVIEW OF SYSTEMS: All 14 systems reviewed and as per HPI. PHYSICAL EXAM: The patient in mild distress, using accessory muscles, was able to talk in full sentences. Vital Signs: Temperature 98.1, pulse 95 beats per minute, respiratory rate 23, O2 sat 99% on 8 L, blood pressure 122/87. HEENT: Pupils equal, reactive to light. Mucous membranes moist. Neck: Supple, accessory muscles in use, trachea in midline. Nose is deviated. Respiratory: Wheeze bilaterally end-expiratory, no crackles, diminished air entry bilaterally. Cardiovascular: S1, S2 present. Regular. No murmurs, gallops or rubs. Abdomen: Soft, nontender, nondistended. Bowel sounds present. Neurologic: No focal deficits. Skin: No bruise or rash. LABORATORY WORKUP: WBC count 13.1, hemoglobin 13.3, hematocrit 40, platelet count 287. D-dimer less than 1050. Blood gas analysis showed pH of 7.43, PCO2 of 43, PO2 is 92, bicarb 27 on BiPAP of 12/5. Sodium 137, potassium 4.4, chloride 103, bicarb 26, BUN 23, creatinine 0.79. BNP 59. CTA of the chest x-ray as described above in HPI. IMPRESSION AND RECOMMENDATIONS: 61-year-old male with severe chronic obstructive pulmonary disease with significant decline recently, with recurrent chronic obstructive pulmonary disease exacerbations and progressively declining performance with dyspnea on exertion, hypoxemia on exertion, currently on disability due to his underlying lung condition admitted with acute chronic obstructive pulmonary disease exacerbation, likely secondary to viral bronchitis and viral pneumonia. The patient improved slightly from admission. His O2 improved given his underlying significant lung disease and minimal reserve to begin with. Continue with bronchodilators, I would not start tapering of prednisone yet. He is currently on 40 mg IV q.8, which will continue for next 2 days. Continue his antibiotics. Will break on the BiPAP during the day, will continue with BiPAP at night. The patient is to be set up with Trilogy upon discharge. He is at risk for recurrent exacerbations and he will benefit from Trilogy machine at home. Thank you for allowing me to participate in the care of your patient. [id number]/[facility] #: [id number] KAREN
[2016-09-07] MEDS: methylPREDNISolone SOD 40 MG* 1 ML VIAL IV SCH ×4 (00:28→23:45)
[2016-09-07] MEDS: Morphine INJ* 2 MG/ML 1 ML SYRINGE IV PRN ×2 (00:30→20:50)
[2016-09-07] MEDS: Albuterol 2.5 MG/3 ML NEB.SOL* (0.083%) INH SCH ×6 (03:43→23:57)
[2016-09-07] MEDS: Enoxaparin(*) 40 MG/0.4 ML SYR SUBCUT SCH (05:30)
[2016-09-07] MEDS: cefTRIAXone VIAL(*) 1,000 MG in NS 0.9% 50 ML* 50 ML IVPB SCH (05:59)
[2016-09-07 06:18] LABS: Hematocrit 41 % (42-52); Hemoglobin 13.5 g/dl (14.0-18.0); Mean Corpuscular HGB Conc 33 g/dl (31-36); Mean Corpuscular Hemoglobin 32 pg (27-31); Mean Corpuscular Volume 98 fL (80-94); Mean Platelet Volume 10 um3 (7.4-10.4); Red Blood Count 4.22 10^6/ul (4.0-5.4); Red Cell Distribution Width 14 % (10.5-15); White Blood Count 11.3 10^3/ul (3.5-10.8)
[2016-09-07] MEDS: Azithromycin IV(*) 500 MG in NS 0.9% 250 ML* 250 ML IVPB SCH (06:20)
[2016-09-07 06:30] LABS: BUN/Creatinine Ratio 34.8 (8-20); Calcium 8.9 mg/dL (8.6-10.3); EGFR African American 150.9 (>60); EGFR Non-African American 117.4 (>60); Potassium 4.5 mmol/L (3.5-5.0)
--- NOTE | 2016-09-07 07:17 | PN ---
Subjective Date of Service: 09/07/16 Interval History: CC: SOB Pt is feeling better today. He has been off the BiPAP for about 30 min this AM and has been able to stay calm. He is coughing some but less than previous. He had an episode of choking on a piece of licorice last evening. He denies any pain. Family History: Unchanged from Admission Social History: Unchanged from Admission Past Medical History: Unchanged from Admission Objective Active Medications: Acetaminophen (Tylenol Tab*) 650 mg PO Q6H PRN PRN Reason: FEVER/PAIN Last Admin: 09/06/16 22:17 Dose: 650 mg Albuterol (Ventolin 2.5 Mg/3 Ml Neb.Violet*) 2.5 mg INH Q2H PRN PRN Reason: SOB/WHEEZING Last Admin: 09/06/16 09:41 Dose: 2.5 mg Albuterol (Ventolin 2.5 Mg/3 Ml Neb.Violet*) 2.5 mg INH [id number] Last Admin: 09/07/16 06:07 Dose: 2.5 mg Amlodipine Besylate (Norvasc Tab*) 2.5 mg PO DAILY [facility] Last Admin: 09/06/16 08:53 Dose: 2.5 mg Atorvastatin Calcium (Lipitor*) 10 mg PO DAILY [facility] PRN Reason: Protocol Last Admin: 09/06/16 08:52 Dose: 10 mg Bupropion HCl (Bupropion Xl*) 300 mg PO DAILY [facility] Last Admin: 09/06/16 08:53 Dose: 300 mg Docusate Sodium (Colace Cap*) 200 mg PO BID PRN PRN Reason: CONSTIPATION Last Admin: 09/05/16 09:15 Dose: 200 mg Enoxaparin Sodium (Lovenox(*)) 40 mg SUBCUT Q24H [facility] Last Admin: 09/07/16 05:30 Dose: 40 mg Famotidine (Pepcid Tab*) 20 mg PO BID [facility] Last Admin: 09/06/16 20:14 Dose: 20 mg Guaifenesin/Codeine Phosphate (Robitussin Ac 100mg-10mg*) 5 ml PO Q4H PRN PRN Reason: COUGH Last Admin: 09/06/16 07:29 Dose: 5 ml Ceftriaxone Sodium 1,000 mg/ (Sodium Chloride) 50 mls @ 200 mls/hr IVPB Q24H [facility] Last Admin: 09/07/16 05:59 Dose: 200 mls/hr Azithromycin 500 mg/ Sodium (Chloride) 250 mls @ 250 mls/hr IVPB Q24H [facility] Last Admin: 09/06/16 06:24 Dose: 250 mls/hr Lorazepam (Ativan Inj*) 0.5 mg IV PUSH BEDTIME PRN PRN Reason: INSOMNIA Last Admin: 09/06/16 23:40 Dose: 0.5 mg Melatonin (Melatonin (Nf)) 3 mg PO BEDTIME PRN; Protocol PRN Reason: Sleep Last Admin: 09/04/16 06:14 Dose: 3 mg Methylprednisolone Sodium Succinate (Solu-Medrol 40 Mg) 40 mg IV Q8H [facility] Last Admin: 09/07/16 00:28 Dose: 40 mg Mometasone Furoate/Formoterol Fumar (Dulera 200/5 Mdi*) 2 puff INH BID [facility] Last Admin: 09/06/16 19:34 Dose: 2 puff Morphine Sulfate (Morphine Inj (Syringe)*) 2 mg IV Q4H PRN PRN Reason: air hunger Last Admin: 09/07/16 00:30 Dose: 2 mg Ondansetron HCl (Zofran Inj*) 4 mg IV Q6H PRN PRN Reason: NAUSEA Tiotropium [place] (Spiriva Cap.Inh*) 1 cap INH DAILY [facility] Last Admin: 09/06/16 08:52 Dose: 1 cap Valacyclovir HCl (Valtrex 500 Mg (*)) 500 mg PO DAILY [facility] PRN Reason: Protocol Last Admin: 09/06/16 08:53 Dose: 500 mg Vital Signs 09/06/16 09/06/16 09/06/16 07:30 07:40 08:00 Temperature 97.5 F Pulse Rate 105 99 Respiratory 23 19 Rate Blood Pressure 120/102 137/81 (mmHg) O2 Sat by Pulse 96 97 Oximetry 09/06/16 09/06/16 09/06/16 08:30 09:00 09:30 Temperature Pulse Rate 98 103 100 Respiratory 21 21 23 Rate Blood Pressure 128/82 122/86 141/92 (mmHg) O2 Sat by Pulse 97 93 99 Oximetry 09/06/16 09/06/16 09/06/16 09:43 10:00 10:30 Temperature Pulse Rate 95 102 Respiratory 20 20 19 Rate Blood Pressure 122/87 121/98 (mmHg) O2 Sat by Pulse 95 92 Oximetry 09/06/16 09/06/16 09/06/16 10:32 11:00 11:30 Temperature 98.1 F Pulse Rate 99 98 102 Respiratory 23 22 18 Rate Blood Pressure 146/87 145/96 (mmHg) O2 Sat by Pulse 96 95 97 Oximetry 09/06/16 09/06/16 09/06/16 11:52 12:00 12:30 Temperature Pulse Rate 95 98 98 Respiratory 23 20 23 Rate Blood Pressure 130/90 141/87 (mmHg) O2 Sat by Pulse 99 99 92 Oximetry 09/06/16 09/06/16 09/06/16 13:00 13:30 14:00 Temperature Pulse Rate 97 Respiratory 20 23 Rate Blood Pressure 132/89 151/87 148/88 (mmHg) O2 Sat by Pulse 83 Oximetry 09/06/16 09/06/16 09/06/16 14:13 14:30 15:00 Temperature Pulse Rate 102 Respiratory 19 17 20 Rate Blood Pressure 137/67 127/68 (mmHg) O2 Sat by Pulse 94 Oximetry 09/06/16 09/06/16 09/06/16 15:30 15:39 16:00 Temperature 98.1 F Pulse Rate 92 95 101 Respiratory 16 20 18 Rate Blood Pressure 125/81 142/91 (mmHg) O2 Sat by Pulse 99 100 96 Oximetry 09/06/16 09/06/16 09/06/16 17:00 17:30 18:00 Temperature Pulse Rate 99 106 Respiratory 19 20 Rate Blood Pressure 125/75 135/86 146/73 (mmHg) O2 Sat by Pulse 93 97 Oximetry 09/06/16 09/06/16 09/06/16 18:30 19:00 19:30 Temperature Pulse Rate 89 80 122 Respiratory 20 16 20 Rate Blood Pressure 135/94 134/93 140/92 (mmHg) O2 Sat by Pulse 97 93 99 Oximetry 09/06/16 09/06/16 09/06/16 19:34 20:00 20:14 Temperature 97.7 F Pulse Rate 114 92 Respiratory 20 19 22 Rate Blood Pressure 118/87 (mmHg) O2 Sat by Pulse 100 96 Oximetry 09/06/16 09/06/16 09/06/16 20:30 21:00 21:30 Temperature Pulse Rate 103 98 94 Respiratory 19 19 17 Rate Blood Pressure 137/83 135/87 134/103 (mmHg) O2 Sat by Pulse 98 99 95 Oximetry 09/06/16 09/06/16 09/06/16 22:00 22:30 23:00 Temperature Pulse Rate 100 94 Respiratory 21 19 Rate Blood Pressure 138/90 146/97 139/94 (mmHg) O2 Sat by Pulse 89 98 Oximetry 09/06/16 09/06/16 09/06/16 23:16 23:30 23:40 Temperature Pulse Rate 93 95 Respiratory 18 20 22 Rate Blood Pressure 139/85 (mmHg) O2 Sat by Pulse 98 96 Oximetry 09/06/16 09/07/16 09/07/16 23:51 00:00 00:01 Temperature 98.7 F Pulse Rate 98 101 Respiratory 23 21 Rate Blood Pressure 146/71 (mmHg) O2 Sat by Pulse 95 94 Oximetry 09/07/16 09/07/16 09/07/16 00:30 01:00 01:30 Temperature Pulse Rate 96 79 73 Respiratory 17 14 14 Rate Blood Pressure 130/91 125/82 131/82 (mmHg) O2 Sat by Pulse 94 96 97 Oximetry 09/07/16 09/07/16 09/07/16 02:00 02:30 03:00 Temperature Pulse Rate 66 85 66 Respiratory 17 23 15 Rate Blood Pressure 120/70 112/68 117/76 (mmHg) O2 Sat by Pulse 100 94 96 Oximetry 09/07/16 09/07/16 09/07/16 03:30 04:00 04:30 Temperature 99.0 F Pulse Rate 71 67 64 Respiratory 15 14 22 Rate Blood Pressure 141/84 114/79 139/65 (mmHg) O2 Sat by Pulse 98 98 97 Oximetry 09/07/16 09/07/16 09/07/16 05:00 05:30 06:00 Temperature Pulse Rate 65 69 96 Respiratory 14 13 20 Rate Blood Pressure 121/68 147/88 (mmHg) O2 Sat by Pulse 100 96 96 Oximetry 09/07/16 06:07 Temperature Pulse Rate 94 Respiratory 19 Rate Blood Pressure (mmHg) O2 Sat by Pulse 96 Oximetry Oxygen Devices in Use Now: Nasal Cannula Appearance: Middle aged male sitting up in bed, BiPAP off, slightly tachypnic but in NAD Eyes: No Scleral Icterus Ears/Nose/Mouth/Throat: Mucous Membranes Moist Respiratory: - - Markedly decreased breath sounds in all lung patricio, + expiratory wheeze Cardiovascular: No Edema, - - tachycardic but regular Abdominal: NL Sounds; No Tenderness; No Distention Extremities: No Clubbing, Cyanosis Skin: No Rash or Ulcers, No Nodules or Sclerosis Neurological: Alert and Oriented x 3 Result Diagrams: 09/07/16 05:45 09/07/16 05:45 Additional Lab and Data: Lab Results 09/04/16 09/04/16 09/04/16 Range/Units 03:30 03:30 03:30 WBC 14.1 H (3.5-10.8) 10^3/ul RBC 4.46 (4.0-5.4) 10^6/ul Hgb 14.5 (14.0-18.0) g/dl Hct 43 (42-52) % MCV 96 H (80-94) fL MCH 32 H (27-31) pg MCHC 34 (31-36) g/dl RDW 14 (10.5-15) % Plt Count 312 (150-450) 10^3/ul MPV 10 (7.4-10.4) um3 Neut % (Auto) 64.3 (38-83) % Lymph % (Auto) 19.4 L (25-47) % [place] % (Auto) 14.9 H (1-9) % Eos % (Auto) 0.3 (0-6) % Baso % (Auto) 1.1 (0-2) % Absolute Neuts (auto) 9.1 H (1.5-7.7) 10^3/ul Absolute Lymphs (auto) 2.7 (1.0-4.8) 10^3/ul Absolute Monos (auto) 2.1 H (0-0.8) 10^3/ul Absolute Eos (auto) 0 (0-0.6) 10^3/ul Absolute Basos (auto) 0.2 (0-0.2) 10^3/ul Absolute Nucleated RBC 0.03 10^3/ul Nucleated RBC % 0.2 D-Dimer, Quantitative > 1050 H (Less Than 230) ng/mL Sodium 134 (133-145) mmol/L Potassium 4.2 (3.5-5.0) mmol/L Chloride 100 L (101-111) mmol/L Carbon Dioxide 27 (22-32) mmol/L Anion Gap 7 (2-11) mmol/L BUN 21 (6-24) mg/dL Creatinine 0.94 (0.67-1.17) mg/dL Est GFR ( Amer) 105.6 (>60) Est GFR (Non-Af Amer) 82.1 (>60) BUN/Creatinine Ratio 22.3 H (8-20) Glucose 100 (70-100) mg/dL Lactic Acid (0.5-2.0) mmol/L Calcium 9.3 (8.6-10.3) mg/dL Total Bilirubin 0.70 (0.2-1.0) mg/dL AST 28 (13-39) U/L ALT 24 (7-52) U/L Alkaline Phosphatase 70 (34-104) U/L Troponin I 0.00 (<0.04) ng/mL B-Natriuretic Peptide ( - 100) pg/mL Total Protein 6.4 (6.4-8.9) g/dL Albumin 4.2 (3.2-5.2) g/dL Globulin 2.2 (2-4) g/dL Albumin/Globulin Ratio 1.9 (1-3) 09/04/16 09/04/16 Range/Units 03:30 03:30 WBC (3.5-10.8) 10^3/ul RBC (4.0-5.4) 10^6/ul Hgb (14.0-18.0) g/dl Hct (42-52) % MCV (80-94) fL MCH (27-31) pg MCHC (31-36) g/dl RDW (10.5-15) % Plt Count (150-450) 10^3/ul MPV (7.4-10.4) um3 Neut % (Auto) (38-83) % Lymph % (Auto) (25-47) % [place] % (Auto) (1-9) % Eos % (Auto) (0-6) % Baso % (Auto) (0-2) % Absolute Neuts (auto) (1.5-7.7) 10^3/ul Absolute Lymphs (auto) (1.0-4.8) 10^3/ul Absolute Monos (auto) (0-0.8) 10^3/ul Absolute Eos (auto) (0-0.6) 10^3/ul Absolute Basos (auto) (0-0.2) 10^3/ul Absolute Nucleated RBC 10^3/ul Nucleated RBC % D-Dimer, Quantitative (Less Than 230) ng/mL Sodium (133-145) mmol/L Potassium (3.5-5.0) mmol/L Chloride (101-111) mmol/L Carbon Dioxide (22-32) mmol/L Anion Gap (2-11) mmol/L BUN (6-24) mg/dL Creatinine (0.67-1.17) mg/dL Est GFR ( Amer) (>60) Est GFR (Non-Af Amer) (>60) BUN/Creatinine Ratio (8-20) Glucose (70-100) mg/dL Lactic Acid 0.8 (0.5-2.0) mmol/L Calcium (8.6-10.3) mg/dL Total Bilirubin (0.2-1.0) mg/dL AST (13-39) U/L ALT (7-52) U/L Alkaline Phosphatase (34-104) U/L Troponin I (<0.04) ng/mL B-Natriuretic Peptide 59 ( - 100) pg/mL Total Protein (6.4-8.9) g/dL Albumin (3.2-5.2) g/dL Globulin (2-4) g/dL Albumin/Globulin Ratio (1-3) Microbiology and Other Data: Microbiology 09/04/16 07:30 Legionella Urinary Antigen - Final Urine Negative Legionella Streptococcus pneumoniae Ag Screen - Final Negative S. pneumo Antigen 09/04/16 05:14 Nasal Screen MRSA (PCR)(ELIZ) - Final Nasal Mrsa Negative Assess/Plan/Problems-Billing Mr Singer is a 61 yo M with a h/o COPD, non-Hodgkins lymphoma in remission, HTN and HLD who presented to the ER with c/o SOB and was admitted to the ICU on BiPAP for a COPD exacerbation. - Patient Problems (1) Acute respiratory failure with hypoxia Current Visit: Yes Status: Acute Code(s): J96.01 - ACUTE RESPIRATORY FAILURE WITH HYPOXIA SNOMED Code(s): 13261613 Comment: Improving-now on NC and appearing relatively comfortable. (2) COPD with exacerbation Current Visit: Yes Status: Acute Code(s): J44.1 - CHRONIC OBSTRUCTIVE PULMONARY DISEASE W (ACUTE) EXACERBATION SNOMED Code(s): 924433437 Comment: The patient is finally appearing somewhat better. This AM he does not appear that he is struggling off the BiPAP as he has the last [address] Cho's input. Will continue with standing nebs, IV solumedrol 40mg IV q8hr. Continue prn morphine and robitussin AC. At this point he appears stable for transfer to the floor but he will need to continue to use BiPAP for distress and at night. Today is D#4/5 of Abx therapy. (3) Anxiety and depression Current Visit: Yes Status: Acute Code(s): F41.9 - ANXIETY DISORDER, UNSPECIFIED; F32.9 - MAJOR DEPRESSIVE DISORDER, SINGLE EPISODE, UNSPECIFIED SNOMED Code(s): 318457884 Comment: Continue bupropion XL and ativan at night. (4) HTN (hypertension) Current Visit: Yes Status: Chronic Code(s): I10 - ESSENTIAL (PRIMARY) HYPERTENSION SNOMED Code(s): 34101420 Comment: BP is under good control on amlodipine 2.5mg daily. (5) HLD (hyperlipidemia) Current Visit: Yes Status: Chronic Code(s): E78.5 - HYPERLIPIDEMIA, UNSPECIFIED SNOMED Code(s): 29228982 Comment: Continue statin. (6) GERD (gastroesophageal reflux disease) Current Visit: Yes Status: Chronic Code(s): K21.9 - GASTRO-ESOPHAGEAL REFLUX DISEASE WITHOUT ESOPHAGITIS SNOMED Code(s): 752538823 Comment: Continue famotidine. (7) DVT prophylaxis Current Visit: Yes Status: Acute Code(s): UGT4863 - SNOMED Code(s): 530965576 Comment: lovenox (8) Full code status Current Visit: Yes Status: Acute Code(s): Z78.9 - OTHER SPECIFIED HEALTH STATUS SNOMED Code(s): 199302948
[2016-09-07] MEDS: Atorvastatin* 20 MG TAB PO SCH (07:58)
[2016-09-07] MEDS: amLODIPine TAB* 5 MG PO SCH (07:59)
[2016-09-07] MEDS: Famotidine TAB* 20 MG PO SCH ×2 (08:00→20:50)
[2016-09-07] MEDS: BuPROPion XL* 300 MG TAB.XL PO SCH (08:00)
[2016-09-07] MEDS: ValACYclovir (*) 500 MG TAB PO SCH (08:00)
[2016-09-07] MEDS: Mometasone/Formoter 200/5 MDI INH SCH ×2 (08:01→20:18)
[2016-09-07] MEDS: Tiotropium CAP.INH* CAP.INH/18 MCG INH SCH (08:02)
--- NOTE | 2016-09-07 16:18 | PN ---
Progress Note - Progress Note Note: Pulm consult f/u note 09/07/16. Pt seen and examined at bedside. Pt reports improvement in breathing, he walked to bathroom and became signficantly dyspneic. Active Medications Generic Name Dose Route Start Last Admin Trade Name Freq PRN Reason Stop Dose Admin Acetaminophen 650 mg 09/04/16 05:04 09/06/16 22:17 Tylenol Tab* PO 650 mg Q6H PRN Administration FEVER/PAIN Albuterol 2.5 mg 09/04/16 05:04 09/06/16 09:41 Ventolin 2.5 Mg/3 Ml Neb.Violet* INH 2.5 mg Q2H PRN Administration SOB/WHEEZING Albuterol 2.5 mg 09/05/16 11:00 09/07/16 15:19 Ventolin 2.5 Mg/3 Ml Neb.Violet* INH 2.5 mg [id number] AWAKE [facility] Administration Amlodipine Besylate 2.5 mg 09/04/16 09:00 09/07/16 07:59 Norvasc Tab* PO 2.5 mg DAILY [facility] Administration Atorvastatin Calcium 10 mg 09/04/16 09:00 09/07/16 07:58 Lipitor* PO 10 mg DAILY [facility] Administration Protocol Bupropion HCl 300 mg 09/04/16 09:00 09/07/16 08:00 Bupropion Xl* PO 300 mg DAILY [facility] Administration Docusate Sodium 200 mg 09/05/16 07:58 09/05/16 09:15 Colace Cap* PO 200 mg BID PRN Administration CONSTIPATION Enoxaparin Sodium 40 mg 09/05/16 05:00 09/07/16 05:30 Lovenox(*) SUBCUT 40 mg Q24H [facility] Administration Famotidine 20 mg 09/04/16 09:00 09/07/16 08:00 Pepcid Tab* PO 20 mg BID [facility] Administration Guaifenesin/Codeine Phosphate 5 ml 09/04/16 17:24 09/06/16 07:29 Robitussin Ac 100mg-10mg* PO 5 ml Q4H PRN Administration COUGH Ceftriaxone Sodium 1,000 mg/ 50 mls @ 200 mls/hr 09/04/16 06:00 09/07/16 05: 59 Sodium Chloride IVPB 200 mls/hr Q24H [facility] Administration Azithromycin 500 mg/ Sodium 250 mls @ 250 mls/hr 09/04/16 06:30 09/07/16 06: 20 Chloride IVPB 250 mls/hr Q24H [facility] Administration Lorazepam 0.5 mg 09/05/16 07:54 09/06/16 23:40 Ativan Inj* IV PUSH 0.5 mg BEDTIME PRN Administration INSOMNIA Melatonin 3 mg 09/04/16 06:01 09/04/16 06:14 Melatonin (Nf) PO 3 mg BEDTIME PRN Administration Sleep Protocol Methylprednisolone Sodium Succinate 40 mg 09/04/16 16:39 09/07/16 07:58 Solu-Medrol 40 Mg IV 40 mg Q8H [facility] Administration Mometasone Furoate/Formoterol Fumar 2 puff 09/04/16 09:00 09/07/16 08:01 Dulera 200/5 Mdi* INH 2 puff BID [facility] Administration Morphine Sulfate 2 mg 09/04/16 17:26 09/07/16 00:30 Morphine Inj (Syringe)* IV 2 mg Q4H PRN Administration air hunger Ondansetron HCl 4 mg 09/04/16 05:04 Zofran Inj* IV Q6H PRN NAUSEA Tiotropium [place] 1 cap 09/04/16 09:00 09/07/16 08:02 Spiriva Cap.Inh* INH 1 cap DAILY [facility] Administration Valacyclovir HCl 500 mg 09/04/16 09:00 09/07/16 08:00 Valtrex 500 Mg (*) PO 500 mg DAILY [facility] Administration Protocol Vital Signs Temp Pulse Resp BP Pulse Ox 98.0 F 97 16 148/84 96 09/07/16 11:08 09/07/16 15:21 09/07/16 15:21 09/07/16 11:08 09/07/16 15:21 Laboratory Results - last 24 hr 09/07/16 09/07/16 05:45 05:45 WBC 11.3 H RBC 4.22 Hgb 13.5 L Hct 41 L MCV 98 H MCH 32 H MCHC 33 RDW 14 Plt Count 300 MPV 10 Sodium 138 Potassium 4.5 Chloride 100 L Carbon Dioxide 33 H Anion Gap 5 BUN 24 Creatinine 0.69 Est GFR ( Amer) 150.9 Est GFR (Non-Af Amer) 117.4 BUN/Creatinine Ratio 34.8 H Glucose 137 H Calcium 8.9 O/E; Pt in mild distress, on BiPAP at time of exam HEENT: PERRLA, nO JVD Lungs: Diminishes a/e b/l, scaterred wheeze, no audible wheeze today CVS: S1, S2+ Abd: Soft, BS+ Neuro: No focal defecits I/R: 61 y o m with severe COPD, O2 dependant with recurrent exacerbations recently currently with acute COPD exacerbation likely sec to viral PNA Slight improvement since admission Benefitting from BiPAP Awaiting Trilogy set up at home c/w current mx of COPD Will start prednisone taper tomorrow
[2016-09-07] MEDS: LORazepam INJ* 2 MG/ML 1 ML VIAL IV PUSH PRN (22:10)
[2016-09-07] MEDS: CMCS - Melatonin (NF) 3 MG TAB PO PRN (22:10)
[2016-09-08] MEDS: Albuterol 2.5 MG/3 ML NEB.SOL* (0.083%) INH SCH ×2 (04:06→07:38)
[2016-09-08] MEDS: Enoxaparin(*) 40 MG/0.4 ML SYR SUBCUT SCH (05:48)
[2016-09-08] MEDS: cefTRIAXone VIAL(*) 1,000 MG in NS 0.9% 50 ML* 50 ML IVPB SCH (06:01)
[2016-09-08] MEDS: Azithromycin IV(*) 500 MG in NS 0.9% 250 ML* 250 ML IVPB SCH (06:29)
[2016-09-08] MEDS: Morphine INJ* 2 MG/ML 1 ML SYRINGE IV PRN ×2 (06:50→15:15)
[2016-09-08] MEDS ORDERED: Tiotropium CAP.INH* CAP.INH/18 MCG INH ONE (07:37)
[2016-09-08] MEDS: Tiotropium CAP.INH* CAP.INH/18 MCG INH SCH (07:38)
[2016-09-08] MEDS: Mometasone/Formoter 200/5 MDI INH SCH ×2 (07:38→20:30)
[2016-09-08] MEDS: Atorvastatin* 20 MG TAB PO SCH (09:03)
[2016-09-08] MEDS: ValACYclovir (*) 500 MG TAB PO SCH (09:03)
[2016-09-08] MEDS: BuPROPion XL* 300 MG TAB.XL PO SCH (09:03)
[2016-09-08] MEDS: Famotidine TAB* 20 MG PO SCH ×2 (09:03→20:46)
[2016-09-08] MEDS: amLODIPine TAB* 5 MG PO SCH (09:03)
[2016-09-08] MEDS: methylPREDNISolone SOD 40 MG* 1 ML VIAL IV SCH ×2 (09:03→20:43)
--- NOTE | 2016-09-08 13:10 | PN ---
Progress Note - Progress Note Note: Pulm consult f/u note 09/08/16. Pt seen and examined at bedside. Pt reports improvement in breathing, no acute events, O2 being titrated down. Active Medications Generic Name Dose Route Start Last Admin Trade Name Freq PRN Reason Stop Dose Admin Acetaminophen 650 mg 09/04/16 05:04 09/06/16 22:17 Tylenol Tab* PO 650 mg Q6H PRN Administration FEVER/PAIN Albuterol 2.5 mg 09/04/16 05:04 09/06/16 09:41 Ventolin 2.5 Mg/3 Ml Neb.Violet* INH 2.5 mg Q2H PRN Administration SOB/WHEEZING Amlodipine Besylate 2.5 mg 09/04/16 09:00 09/08/16 09:03 Norvasc Tab* PO 2.5 mg DAILY [facility] Administration Atorvastatin Calcium 10 mg 09/04/16 09:00 09/08/16 09:03 Lipitor* PO 10 mg DAILY [facility] Administration Protocol Bupropion HCl 300 mg 09/04/16 09:00 09/08/16 09:03 Bupropion Xl* PO 300 mg DAILY [facility] Administration Docusate Sodium 200 mg 09/05/16 07:58 09/05/16 09:15 Colace Cap* PO 200 mg BID PRN Administration CONSTIPATION Enoxaparin Sodium 40 mg 09/05/16 05:00 09/08/16 05:48 Lovenox(*) SUBCUT 40 mg Q24H [facility] Administration Famotidine 20 mg 09/04/16 09:00 09/08/16 09:03 Pepcid Tab* PO 20 mg BID [facility] Administration Guaifenesin/Codeine Phosphate 5 ml 09/04/16 17:24 09/06/16 07:29 Robitussin Ac 100mg-10mg* PO 5 ml Q4H PRN Administration COUGH Ceftriaxone Sodium 1,000 mg/ 50 mls @ 200 mls/hr 09/04/16 06:00 09/08/16 06: 01 Sodium Chloride IVPB 200 mls/hr Q24H [facility] Administration Azithromycin 500 mg/ Sodium 250 mls @ 250 mls/hr 09/04/16 06:30 09/08/16 06: 29 Chloride IVPB 250 mls/hr Q24H [facility] Administration Lorazepam 0.5 mg 09/05/16 07:54 09/07/16 22:10 Ativan Inj* IV PUSH 0.5 mg BEDTIME PRN Administration INSOMNIA Melatonin 3 mg 09/04/16 06:01 09/07/16 22:10 Melatonin (Nf) PO 3 mg BEDTIME PRN Administration Sleep Protocol Methylprednisolone Sodium Succinate 40 mg 09/04/16 16:39 09/08/16 09:03 Solu-Medrol 40 Mg IV 40 mg Q8H [facility] Administration Mometasone Furoate/Formoterol Fumar 2 puff 09/04/16 09:00 09/08/16 07:38 Dulera 200/5 Mdi* INH 2 puff BID [facility] Administration Morphine Sulfate 2 mg 09/04/16 17:26 09/08/16 06:50 Morphine Inj (Syringe)* IV 2 mg Q4H PRN Administration air hunger Ondansetron HCl 4 mg 09/04/16 05:04 Zofran Inj* IV Q6H PRN NAUSEA Tiotropium [place] 1 cap 09/04/16 09:00 09/08/16 07:38 Spiriva Cap.Inh* INH 1 cap DAILY [facility] Administration Valacyclovir HCl 500 mg 09/04/16 09:00 09/08/16 09:03 Valtrex 500 Mg (*) PO 500 mg DAILY [facility] Administration Protocol Vital Signs Temp Pulse Resp BP Pulse Ox 97.3 F 92 20 122/68 95 09/08/16 11:27 09/08/16 11:27 09/08/16 11:27 09/08/16 11:27 09/08/16 11:27 O/E; Pt in mild distress, on BiPAP at time of exam HEENT: PERRLA, nO JVD Lungs: Diminishes a/e b/l, scaterred wheeze, no audible wheeze today CVS: S1, S2+ Abd: Soft, BS+ Neuro: No focal defecits I/R: 61 y o m with severe COPD, O2 dependant with recurrent exacerbations recently currently with acute COPD exacerbation likely sec to viral PNA Improving slowly since admission Benefitting from BiPAP Awaiting Trilogy set up at home c/w current mx of COPD Start steroid taper, 40mg IV q 12 hrs today
--- NOTE | 2016-09-08 16:28 | PN ---
Subjective Date of Service: 09/08/16 Interval History: Pt is feeling much better. He has spent most of the day so far off BiPAP but does put it back on for a few minutes after he has a coughing spell and feels as if he can not catch his breath. He denies any pain. He is discouraged about how long it is taking to recover. Family History: Unchanged from Admission Social History: Unchanged from Admission Past Medical History: Unchanged from Admission Objective Active Medications: Acetaminophen (Tylenol Tab*) 650 mg PO Q6H PRN PRN Reason: FEVER/PAIN Last Admin: 09/06/16 22:17 Dose: 650 mg Albuterol (Ventolin 2.5 Mg/3 Ml Neb.Violet*) 2.5 mg INH Q2H PRN PRN Reason: SOB/WHEEZING Last Admin: 09/06/16 09:41 Dose: 2.5 mg Amlodipine Besylate (Norvasc Tab*) 2.5 mg PO DAILY [facility] Last Admin: 09/08/16 09:03 Dose: 2.5 mg Atorvastatin Calcium (Lipitor*) 10 mg PO DAILY [facility] PRN Reason: Protocol Last Admin: 09/08/16 09:03 Dose: 10 mg Bupropion HCl (Bupropion Xl*) 300 mg PO DAILY [facility] Last Admin: 09/08/16 09:03 Dose: 300 mg Docusate Sodium (Colace Cap*) 200 mg PO BID PRN PRN Reason: CONSTIPATION Last Admin: 09/05/16 09:15 Dose: 200 mg Enoxaparin Sodium (Lovenox(*)) 40 mg SUBCUT Q24H [facility] Last Admin: 09/08/16 05:48 Dose: 40 mg Famotidine (Pepcid Tab*) 20 mg PO BID [facility] Last Admin: 09/08/16 09:03 Dose: 20 mg Guaifenesin/Codeine Phosphate (Robitussin Ac 100mg-10mg*) 5 ml PO Q4H PRN PRN Reason: COUGH Last Admin: 09/06/16 07:29 Dose: 5 ml Ceftriaxone Sodium 1,000 mg/ (Sodium Chloride) 50 mls @ 200 mls/hr IVPB Q24H [facility] Last Admin: 09/08/16 06:01 Dose: 200 mls/hr Azithromycin 500 mg/ Sodium (Chloride) 250 mls @ 250 mls/hr IVPB Q24H [facility] Last Admin: 09/08/16 06:29 Dose: 250 mls/hr Lorazepam (Ativan Inj*) 0.5 mg IV PUSH BEDTIME PRN PRN Reason: INSOMNIA Last Admin: 09/07/16 22:10 Dose: 0.5 mg Melatonin (Melatonin (Nf)) 3 mg PO BEDTIME PRN; Protocol PRN Reason: Sleep Last Admin: 09/07/16 22:10 Dose: 3 mg Methylprednisolone Sodium Succinate (Solu-Medrol 40 Mg) 40 mg IV Q12H [facility] Mometasone Furoate/Formoterol Fumar (Dulera 200/5 Mdi*) 2 puff INH BID [facility] Last Admin: 09/08/16 07:38 Dose: 2 puff Morphine Sulfate (Morphine Inj (Syringe)*) 2 mg IV Q4H PRN PRN Reason: air hunger Last Admin: 09/08/16 15:15 Dose: 2 mg Ondansetron HCl (Zofran Inj*) 4 mg IV Q6H PRN PRN Reason: NAUSEA Tiotropium [place] (Spiriva Cap.Inh*) 1 cap INH DAILY [facility] Last Admin: 09/08/16 07:38 Dose: 1 cap Valacyclovir HCl (Valtrex 500 Mg (*)) 500 mg PO DAILY [facility] PRN Reason: Protocol Last Admin: 09/08/16 09:03 Dose: 500 mg Vital Signs 09/07/16 09/07/16 09/07/16 19:17 19:19 19:45 Temperature 97.7 F Pulse Rate 99 98 Respiratory 15 24 20 Rate Blood Pressure 146/83 (mmHg) O2 Sat by Pulse 95 96 Oximetry 09/07/16 09/07/16 09/07/16 20:50 21:50 22:10 Temperature Pulse Rate Respiratory 20 16 16 Rate Blood Pressure (mmHg) O2 Sat by Pulse Oximetry 09/07/16 09/07/16 09/08/16 23:10 23:50 03:44 Temperature 97.3 F Pulse Rate 93 82 Respiratory 16 19 18 Rate Blood Pressure 138/88 114/79 (mmHg) O2 Sat by Pulse 99 100 Oximetry 09/08/16 09/08/16 09/08/16 06:50 07:32 07:41 Temperature 97.6 F Pulse Rate 81 64 Respiratory 24 16 16 Rate Blood Pressure 108/88 (mmHg) O2 Sat by Pulse 98 98 Oximetry 09/08/16 09/08/16 09/08/16 07:50 08:00 11:27 Temperature 97.3 F Pulse Rate 101 Respiratory 20 24 20 Rate Blood Pressure 122/68 (mmHg) O2 Sat by Pulse 95 Oximetry 09/08/16 15:15 Temperature Pulse Rate Respiratory 24 Rate Blood Pressure (mmHg) O2 Sat by Pulse Oximetry Oxygen Devices in Use Now: Nasal Cannula - 6L-95% Appearance: Middle aged male sitting up in bed, NAD Eyes: No Scleral Icterus Ears/Nose/Mouth/Throat: Mucous Membranes Moist Respiratory: Symmetrical Chest Expansion and Respiratory Effort, Clear to Auscultation - diminished breath sounds in all lung patricio thought slightly improved from yesterday, no wheezing heard Cardiovascular: NL Sounds; No Murmurs; No JVD, RRR, No Edema Abdominal: NL Sounds; No Tenderness; No Distention Extremities: No Clubbing, Cyanosis Skin: No Rash or Ulcers, No Nodules or Sclerosis Neurological: Alert and Oriented x 3 Result Diagrams: 09/07/16 05:45 09/07/16 05:45 Additional Lab and Data: Lab Results 09/04/16 09/04/16 09/04/16 Range/Units 03:30 03:30 03:30 WBC 14.1 H (3.5-10.8) 10^3/ul RBC 4.46 (4.0-5.4) 10^6/ul Hgb 14.5 (14.0-18.0) g/dl Hct 43 (42-52) % MCV 96 H (80-94) fL MCH 32 H (27-31) pg MCHC 34 (31-36) g/dl RDW 14 (10.5-15) % Plt Count 312 (150-450) 10^3/ul MPV 10 (7.4-10.4) um3 Neut % (Auto) 64.3 (38-83) % Lymph % (Auto) 19.4 L (25-47) % [place] % (Auto) 14.9 H (1-9) % Eos % (Auto) 0.3 (0-6) % Baso % (Auto) 1.1 (0-2) % Absolute Neuts (auto) 9.1 H (1.5-7.7) 10^3/ul Absolute Lymphs (auto) 2.7 (1.0-4.8) 10^3/ul Absolute Monos (auto) 2.1 H (0-0.8) 10^3/ul Absolute Eos (auto) 0 (0-0.6) 10^3/ul Absolute Basos (auto) 0.2 (0-0.2) 10^3/ul Absolute Nucleated RBC 0.03 10^3/ul Nucleated RBC % 0.2 D-Dimer, Quantitative > 1050 H (Less Than 230) ng/mL Sodium 134 (133-145) mmol/L Potassium 4.2 (3.5-5.0) mmol/L Chloride 100 L (101-111) mmol/L Carbon Dioxide 27 (22-32) mmol/L Anion Gap 7 (2-11) mmol/L BUN 21 (6-24) mg/dL Creatinine 0.94 (0.67-1.17) mg/dL Est GFR ( Amer) 105.6 (>60) Est GFR (Non-Af Amer) 82.1 (>60) BUN/Creatinine Ratio 22.3 H (8-20) Glucose 100 (70-100) mg/dL Lactic Acid (0.5-2.0) mmol/L Calcium 9.3 (8.6-10.3) mg/dL Total Bilirubin 0.70 (0.2-1.0) mg/dL AST 28 (13-39) U/L ALT 24 (7-52) U/L Alkaline Phosphatase 70 (34-104) U/L Troponin I 0.00 (<0.04) ng/mL B-Natriuretic Peptide ( - 100) pg/mL Total Protein 6.4 (6.4-8.9) g/dL Albumin 4.2 (3.2-5.2) g/dL Globulin 2.2 (2-4) g/dL Albumin/Globulin Ratio 1.9 (1-3) 09/04/16 09/04/16 Range/Units 03:30 03:30 WBC (3.5-10.8) 10^3/ul RBC (4.0-5.4) 10^6/ul Hgb (14.0-18.0) g/dl Hct (42-52) % MCV (80-94) fL MCH (27-31) pg MCHC (31-36) g/dl RDW (10.5-15) % Plt Count (150-450) 10^3/ul MPV (7.4-10.4) um3 Neut % (Auto) (38-83) % Lymph % (Auto) (25-47) % [place] % (Auto) (1-9) % Eos % (Auto) (0-6) % Baso % (Auto) (0-2) % Absolute Neuts (auto) (1.5-7.7) 10^3/ul Absolute Lymphs (auto) (1.0-4.8) 10^3/ul Absolute Monos (auto) (0-0.8) 10^3/ul Absolute Eos (auto) (0-0.6) 10^3/ul Absolute Basos (auto) (0-0.2) 10^3/ul Absolute Nucleated RBC 10^3/ul Nucleated RBC % D-Dimer, Quantitative (Less Than 230) ng/mL Sodium (133-145) mmol/L Potassium (3.5-5.0) mmol/L Chloride (101-111) mmol/L Carbon Dioxide (22-32) mmol/L Anion Gap (2-11) mmol/L BUN (6-24) mg/dL Creatinine (0.67-1.17) mg/dL Est GFR ( Amer) (>60) Est GFR (Non-Af Amer) (>60) BUN/Creatinine Ratio (8-20) Glucose (70-100) mg/dL Lactic Acid 0.8 (0.5-2.0) mmol/L Calcium (8.6-10.3) mg/dL Total Bilirubin (0.2-1.0) mg/dL AST (13-39) U/L ALT (7-52) U/L Alkaline Phosphatase (34-104) U/L Troponin I (<0.04) ng/mL B-Natriuretic Peptide 59 ( - 100) pg/mL Total Protein (6.4-8.9) g/dL Albumin (3.2-5.2) g/dL Globulin (2-4) g/dL Albumin/Globulin Ratio (1-3) Microbiology and Other Data: Microbiology 09/04/16 07:30 Legionella Urinary Antigen - Final Urine Negative Legionella Streptococcus pneumoniae Ag Screen - Final Negative S. pneumo Antigen 09/04/16 05:14 Nasal Screen MRSA (PCR)([facility]) - Final Nasal Mrsa Negative Assess/Plan/Problems-Billing Mr Singer is a 61 yo M with a h/o COPD, non-Hodgkins lymphoma in remission, HTN and HLD who presented to the ER with c/o SOB and was admitted to the ICU on BiPAP for a COPD exacerbation. - Patient Problems (1) Acute respiratory failure with hypoxia Current Visit: Yes Status: Acute Code(s): J96.01 - ACUTE RESPIRATORY FAILURE WITH HYPOXIA SNOMED Code(s): 57958940 Comment: The patient has acute on chronic hypoxic respiratory failure. He is on 6L O2 now but can likely be titrated down some. He is being set up for trilogy at home. (2) COPD with exacerbation Current Visit: Yes Status: Acute Code(s): J44.1 - CHRONIC OBSTRUCTIVE PULMONARY DISEASE W (ACUTE) EXACERBATION SNOMED Code(s): 053615503 Comment: Much improved today. Decrease solumedrol to 40mg IV q12hr. Continue standing nebs. Trial oral morphine for air hunger. Continue BiPAP with sleep. Stop Abx today. Possibly home tomorrow. (3) Anxiety and depression Current Visit: Yes Status: Acute Code(s): F41.9 - ANXIETY DISORDER, UNSPECIFIED; F32.9 - MAJOR DEPRESSIVE DISORDER, SINGLE EPISODE, UNSPECIFIED SNOMED Code(s): 774080921 Comment: Continue bupropion XL and ativan at night. (4) HTN (hypertension) Current Visit: Yes Status: Chronic Code(s): I10 - ESSENTIAL (PRIMARY) HYPERTENSION SNOMED Code(s): 29482362 Comment: BP is under good control on amlodipine 2.5mg daily. (5) HLD (hyperlipidemia) Current Visit: Yes Status: Chronic Code(s): E78.5 - HYPERLIPIDEMIA, UNSPECIFIED SNOMED Code(s): 34006167 Comment: Continue statin. (6) GERD (gastroesophageal reflux disease) Current Visit: Yes Status: Chronic Code(s): K21.9 - GASTRO-ESOPHAGEAL REFLUX DISEASE WITHOUT ESOPHAGITIS SNOMED Code(s): 511795514 Comment: Continue famotidine. (7) DVT prophylaxis Current Visit: Yes Status: Acute Code(s): SGO9816 - SNOMED Code(s): 013940432 Comment: lovenox (8) Full code status Current Visit: Yes Status: Acute Code(s): Z78.9 - OTHER SPECIFIED HEALTH STATUS SNOMED Code(s): 731628389
[2016-09-08] MEDS ORDERED: Morphine ORAL.SOLN 10 mg* 2 MG/ML UDC 5 ml PO PRN (16:31)
[2016-09-08] MEDS: LORazepam INJ* 2 MG/ML 1 ML VIAL IV PUSH PRN (23:08)
[2016-09-08] MEDS: CMCS - Melatonin (NF) 3 MG TAB PO PRN ×2 (23:08→23:11)
[2016-09-09] MEDS: Enoxaparin(*) 40 MG/0.4 ML SYR SUBCUT SCH (05:37)
[2016-09-09] MEDS: Tiotropium CAP.INH* CAP.INH/18 MCG INH SCH (07:41)
[2016-09-09] MEDS: Mometasone/Formoter 200/5 MDI INH SCH ×2 (07:41→19:40)
[2016-09-09] MEDS: Albuterol 2.5 MG/3 ML NEB.SOL* (0.083%) INH PRN (07:46)
[2016-09-09] MEDS: methylPREDNISolone SOD 40 MG* 1 ML VIAL IV SCH ×2 (10:21→20:38)
[2016-09-09] MEDS: BuPROPion XL* 300 MG TAB.XL PO SCH (10:21)
[2016-09-09] MEDS: ValACYclovir (*) 500 MG TAB PO SCH (10:21)
[2016-09-09] MEDS: Atorvastatin* 20 MG TAB PO SCH (10:21)
[2016-09-09] MEDS: Famotidine TAB* 20 MG PO SCH ×2 (10:22→20:38)
[2016-09-09] MEDS: amLODIPine TAB* 5 MG PO SCH (10:22)
--- NOTE | 2016-09-09 14:26 | PN ---
Subjective Date of Service: 09/09/16 Interval History: Pt is feeling better. He states when he has gotten up to the bathroom he is still SOB, better than the last couple days but he is still quite winded. He thinks he needs more time in the hospital. Family History: Unchanged from Admission Social History: Unchanged from Admission Past Medical History: Unchanged from Admission Objective Active Medications: Acetaminophen (Tylenol Tab*) 650 mg PO Q6H PRN PRN Reason: FEVER/PAIN Last Admin: 09/06/16 22:17 Dose: 650 mg Albuterol (Ventolin 2.5 Mg/3 Ml Neb.Violet*) 2.5 mg INH Q2H PRN PRN Reason: SOB/WHEEZING Last Admin: 09/09/16 07:46 Dose: 2.5 mg Amlodipine Besylate (Norvasc Tab*) 2.5 mg PO DAILY [facility] Last Admin: 09/09/16 10:22 Dose: 2.5 mg Atorvastatin Calcium (Lipitor*) 10 mg PO DAILY [facility] PRN Reason: Protocol Last Admin: 09/09/16 10:21 Dose: 10 mg Bupropion HCl (Bupropion Xl*) 300 mg PO DAILY [facility] Last Admin: 09/09/16 10:21 Dose: 300 mg Docusate Sodium (Colace Cap*) 200 mg PO BID PRN PRN Reason: CONSTIPATION Last Admin: 09/05/16 09:15 Dose: 200 mg Enoxaparin Sodium (Lovenox(*)) 40 mg SUBCUT Q24H [facility] Last Admin: 09/09/16 05:37 Dose: 40 mg Famotidine (Pepcid Tab*) 20 mg PO BID [facility] Last Admin: 09/09/16 10:22 Dose: 20 mg Guaifenesin/Codeine Phosphate (Robitussin Ac 100mg-10mg*) 5 ml PO Q4H PRN PRN Reason: COUGH Last Admin: 09/06/16 07:29 Dose: 5 ml Lorazepam (Ativan Inj*) 0.5 mg IV PUSH BEDTIME PRN PRN Reason: INSOMNIA Last Admin: 09/08/16 23:08 Dose: 0.5 mg Melatonin (Melatonin (Nf)) 3 mg PO BEDTIME PRN; Protocol PRN Reason: Sleep Last Admin: 09/08/16 23:11 Dose: 3 mg Methylprednisolone Sodium Succinate (Solu-Medrol 40 Mg) 40 mg IV Q12H [facility] Last Admin: 09/09/16 10:21 Dose: 40 mg Mometasone Furoate/Formoterol Fumar (Dulera 200/5 Mdi*) 2 puff INH BID [facility] Last Admin: 09/09/16 07:41 Dose: 2 puff Morphine Sulfate (Morphine Oral.Soln 10 Mg*) 5 mg PO Q4H PRN PRN Reason: air hunger Last Admin: 09/08/16 20:41 Dose: 5 mg Ondansetron HCl (Zofran Inj*) 4 mg IV Q6H PRN PRN Reason: NAUSEA Tiotropium [place] (Spiriva Cap.Inh*) 1 cap INH DAILY [facility] Last Admin: 09/09/16 07:41 Dose: 1 cap Valacyclovir HCl (Valtrex 500 Mg (*)) 500 mg PO DAILY [facility] PRN Reason: Protocol Last Admin: 09/09/16 10:21 Dose: 500 mg Vital Signs 09/08/16 09/08/16 09/08/16 15:15 15:16 16:15 Temperature 98.2 F Pulse Rate 111 Respiratory 24 22 22 Rate Blood Pressure 136/70 (mmHg) O2 Sat by Pulse 93 Oximetry 09/08/16 09/08/16 09/08/16 19:49 20:00 20:32 Temperature 98.0 F Pulse Rate 102 110 Respiratory 20 23 20 Rate Blood Pressure 122/81 (mmHg) O2 Sat by Pulse 95 96 Oximetry 09/08/16 09/08/16 09/08/16 20:41 22:41 23:08 Temperature Pulse Rate Respiratory 23 20 20 Rate Blood Pressure (mmHg) O2 Sat by Pulse Oximetry 09/08/16 09/09/16 09/09/16 23:10 00:08 03:59 Temperature 97.6 F 97.9 F Pulse Rate 86 98 Respiratory 16 19 Rate Blood Pressure 122/76 115/82 (mmHg) O2 Sat by Pulse 95 94 Oximetry 09/09/16 09/09/16 09/09/16 07:47 07:48 08:00 Temperature 98.2 F Pulse Rate 84 80 Respiratory 18 17 18 Rate Blood Pressure 107/84 (mmHg) O2 Sat by Pulse 98 92 Oximetry Oxygen Devices in Use Now: Nasal Cannula - 6L-92% Appearance: Middle aged male sitting up in bed, NAD Eyes: No Scleral Icterus Ears/Nose/Mouth/Throat: Mucous Membranes Moist Respiratory: Symmetrical Chest Expansion and Respiratory Effort, Clear to Auscultation - slight MARC wheeze, CTA with diminished lung sounds in all other lung patricio Cardiovascular: NL Sounds; No Murmurs; No JVD, RRR, No Edema Abdominal: NL Sounds; No Tenderness; No Distention Extremities: No Clubbing, Cyanosis Skin: No Rash or Ulcers, No Nodules or Sclerosis Neurological: Alert and Oriented x 3 Result Diagrams: 09/07/16 05:45 09/07/16 05:45 Additional Lab and Data: Lab Results 09/04/16 09/04/16 09/04/16 Range/Units 03:30 03:30 03:30 WBC 14.1 H (3.5-10.8) 10^3/ul RBC 4.46 (4.0-5.4) 10^6/ul Hgb 14.5 (14.0-18.0) g/dl Hct 43 (42-52) % MCV 96 H (80-94) fL MCH 32 H (27-31) pg MCHC 34 (31-36) g/dl RDW 14 (10.5-15) % Plt Count 312 (150-450) 10^3/ul MPV 10 (7.4-10.4) um3 Neut % (Auto) 64.3 (38-83) % Lymph % (Auto) 19.4 L (25-47) % [place] % (Auto) 14.9 H (1-9) % Eos % (Auto) 0.3 (0-6) % Baso % (Auto) 1.1 (0-2) % Absolute Neuts (auto) 9.1 H (1.5-7.7) 10^3/ul Absolute Lymphs (auto) 2.7 (1.0-4.8) 10^3/ul Absolute Monos (auto) 2.1 H (0-0.8) 10^3/ul Absolute Eos (auto) 0 (0-0.6) 10^3/ul Absolute Basos (auto) 0.2 (0-0.2) 10^3/ul Absolute Nucleated RBC 0.03 10^3/ul Nucleated RBC % 0.2 D-Dimer, Quantitative > 1050 H (Less Than 230) ng/mL Sodium 134 (133-145) mmol/L Potassium 4.2 (3.5-5.0) mmol/L Chloride 100 L (101-111) mmol/L Carbon Dioxide 27 (22-32) mmol/L Anion Gap 7 (2-11) mmol/L BUN 21 (6-24) mg/dL Creatinine 0.94 (0.67-1.17) mg/dL Est GFR ( Amer) 105.6 (>60) Est GFR (Non-Af Amer) 82.1 (>60) BUN/Creatinine Ratio 22.3 H (8-20) Glucose 100 (70-100) mg/dL Lactic Acid (0.5-2.0) mmol/L Calcium 9.3 (8.6-10.3) mg/dL Total Bilirubin 0.70 (0.2-1.0) mg/dL AST 28 (13-39) U/L ALT 24 (7-52) U/L Alkaline Phosphatase 70 (34-104) U/L Troponin I 0.00 (<0.04) ng/mL B-Natriuretic Peptide ( - 100) pg/mL Total Protein 6.4 (6.4-8.9) g/dL Albumin 4.2 (3.2-5.2) g/dL Globulin 2.2 (2-4) g/dL Albumin/Globulin Ratio 1.9 (1-3) 09/04/16 09/04/16 Range/Units 03:30 03:30 WBC (3.5-10.8) 10^3/ul RBC (4.0-5.4) 10^6/ul Hgb (14.0-18.0) g/dl Hct (42-52) % MCV (80-94) fL MCH (27-31) pg MCHC (31-36) g/dl RDW (10.5-15) % Plt Count (150-450) 10^3/ul MPV (7.4-10.4) um3 Neut % (Auto) (38-83) % Lymph % (Auto) (25-47) % [place] % (Auto) (1-9) % Eos % (Auto) (0-6) % Baso % (Auto) (0-2) % Absolute Neuts (auto) (1.5-7.7) 10^3/ul Absolute Lymphs (auto) (1.0-4.8) 10^3/ul Absolute Monos (auto) (0-0.8) 10^3/ul Absolute Eos (auto) (0-0.6) 10^3/ul Absolute Basos (auto) (0-0.2) 10^3/ul Absolute Nucleated RBC 10^3/ul Nucleated RBC % D-Dimer, Quantitative (Less Than 230) ng/mL Sodium (133-145) mmol/L Potassium (3.5-5.0) mmol/L Chloride (101-111) mmol/L Carbon Dioxide (22-32) mmol/L Anion Gap (2-11) mmol/L BUN (6-24) mg/dL Creatinine (0.67-1.17) mg/dL Est GFR ( Amer) (>60) Est GFR (Non-Af Amer) (>60) BUN/Creatinine Ratio (8-20) Glucose (70-100) mg/dL Lactic Acid 0.8 (0.5-2.0) mmol/L Calcium (8.6-10.3) mg/dL Total Bilirubin (0.2-1.0) mg/dL AST (13-39) U/L ALT (7-52) U/L Alkaline Phosphatase (34-104) U/L Troponin I (<0.04) ng/mL B-Natriuretic Peptide 59 ( - 100) pg/mL Total Protein (6.4-8.9) g/dL Albumin (3.2-5.2) g/dL Globulin (2-4) g/dL Albumin/Globulin Ratio (1-3) Microbiology and Other Data: Microbiology 09/04/16 07:30 Legionella Urinary Antigen - Final Urine Negative Legionella Streptococcus pneumoniae Ag Screen - Final Negative S. pneumo Antigen 09/04/16 05:14 Nasal Screen MRSA (PCR)([facility]) - Final Nasal [facility]sa Negative Assess/Plan/Problems-Billing Mr Singer is a 61 yo M with a h/o COPD, non-Hodgkins lymphoma in remission, HTN and HLD who presented to the ER with c/o SOB and was admitted to the ICU on BiPAP for a COPD exacerbation. - Patient Problems (1) Acute respiratory failure with hypoxia Current Visit: Yes Status: Acute Code(s): J96.01 - ACUTE RESPIRATORY FAILURE WITH HYPOXIA SNOMED Code(s): 99175086 Comment: The patient has acute on chronic hypoxic respiratory failure. He is on 6L O2 now- will start to wean down to see how much he needs at baseline. (2) COPD with exacerbation Current Visit: Yes Status: Acute Code(s): J44.1 - CHRONIC OBSTRUCTIVE PULMONARY DISEASE W (ACUTE) EXACERBATION SNOMED Code(s): 766852007 Comment: Much improved today. Change to prednisone tomorrow. Likely will be ready for home in next 24hr. Increase oral morphine to 10mg q4hr prn air hunger. (3) Anxiety and depression Current Visit: Yes Status: Acute Code(s): F41.9 - ANXIETY DISORDER, UNSPECIFIED; F32.9 - MAJOR DEPRESSIVE DISORDER, SINGLE EPISODE, UNSPECIFIED SNOMED Code(s): 144245187 Comment: Continue bupropion XL and ativan at night. (4) HTN (hypertension) Current Visit: Yes Status: Chronic Code(s): I10 - ESSENTIAL (PRIMARY) HYPERTENSION SNOMED Code(s): 56157039 Comment: BP is under good control on amlodipine 2.5mg daily. (5) HLD (hyperlipidemia) Current Visit: Yes Status: Chronic Code(s): E78.5 - HYPERLIPIDEMIA, UNSPECIFIED SNOMED Code(s): 16247984 Comment: Continue statin. (6) GERD (gastroesophageal reflux disease) Current Visit: Yes Status: Chronic Code(s): K21.9 - GASTRO-ESOPHAGEAL REFLUX DISEASE WITHOUT ESOPHAGITIS SNOMED Code(s): 875112670 Comment: Continue famotidine. (7) DVT prophylaxis Current Visit: Yes Status: Acute Code(s): EMZ6944 - SNOMED Code(s): 768591067 Comment: lovenox (8) Full code status Current Visit: Yes Status: Acute Code(s): Z78.9 - OTHER SPECIFIED HEALTH STATUS SNOMED Code(s): 428900567
[2016-09-09] MEDS: Morphine ORAL.SOLN 10 mg* 2 MG/ML UDC 5 ml PO PRN (17:51)
[2016-09-09] MEDS: CMCS - Melatonin (NF) 3 MG TAB PO PRN (22:24)
[2016-09-09] MEDS: LORazepam INJ* 2 MG/ML 1 ML VIAL IV PUSH PRN (22:24)
[2016-09-10] MEDS: Morphine ORAL.SOLN 10 mg* 2 MG/ML UDC 5 ml PO PRN ×3 (00:47→22:15)
[2016-09-10] MEDS: Enoxaparin(*) 40 MG/0.4 ML SYR SUBCUT SCH (05:18)
[2016-09-10] MEDS: Mometasone/Formoter 200/5 MDI INH SCH ×2 (08:32→20:08)
[2016-09-10] MEDS: Tiotropium CAP.INH* CAP.INH/18 MCG INH SCH (08:34)
[2016-09-10] MEDS: Atorvastatin* 20 MG TAB PO SCH (09:54)
[2016-09-10] MEDS: methylPREDNISolone SOD 40 MG* 1 ML VIAL IV SCH (09:54)
[2016-09-10] MEDS: amLODIPine TAB* 5 MG PO SCH (09:55)
[2016-09-10] MEDS: BuPROPion XL* 300 MG TAB.XL PO SCH (09:55)
[2016-09-10] MEDS: ValACYclovir (*) 500 MG TAB PO SCH (09:55)
[2016-09-10] MEDS: Famotidine TAB* 20 MG PO SCH ×2 (09:56→20:18)
--- NOTE | 2016-09-10 14:37 | PN ---
Subjective Date of Service: 09/10/16 Interval History: Pt is feeling better. Yesterday he got very SOB when he was up and walking but today he felt better. He has not been weaned down at all on his O2 today. He has had to use the BiPAP about 3 times so far today for about 5 minutes each to catch his breath. Family History: Unchanged from Admission Social History: Unchanged from Admission Past Medical History: Unchanged from Admission Objective Active Medications: Acetaminophen (Tylenol Tab*) 650 mg PO Q6H PRN PRN Reason: FEVER/PAIN Last Admin: 09/06/16 22:17 Dose: 650 mg Albuterol (Ventolin 2.5 Mg/3 Ml Neb.Violet*) 2.5 mg INH Q2H PRN PRN Reason: SOB/WHEEZING Last Admin: 09/09/16 07:46 Dose: 2.5 mg Amlodipine Besylate (Norvasc Tab*) 2.5 mg PO DAILY [facility] Last Admin: 09/10/16 09:55 Dose: 2.5 mg Atorvastatin Calcium (Lipitor*) 10 mg PO DAILY [facility] PRN Reason: Protocol Last Admin: 09/10/16 09:54 Dose: 10 mg Bupropion HCl (Bupropion Xl*) 300 mg PO DAILY [facility] Last Admin: 09/10/16 09:55 Dose: 300 mg Docusate Sodium (Colace Cap*) 200 mg PO BID PRN PRN Reason: CONSTIPATION Last Admin: 09/05/16 09:15 Dose: 200 mg Enoxaparin Sodium (Lovenox(*)) 40 mg SUBCUT Q24H [facility] Last Admin: 09/10/16 05:18 Dose: 40 mg Famotidine (Pepcid Tab*) 20 mg PO BID [facility] Last Admin: 09/10/16 09:56 Dose: 20 mg Guaifenesin/Codeine Phosphate (Robitussin Ac 100mg-10mg*) 5 ml PO Q4H PRN PRN Reason: COUGH Last Admin: 09/06/16 07:29 Dose: 5 ml Lorazepam (Ativan Inj*) 0.5 mg IV PUSH BEDTIME PRN PRN Reason: INSOMNIA Last Admin: 09/09/16 22:24 Dose: 0.5 mg Melatonin (Melatonin (Nf)) 3 mg PO BEDTIME PRN; Protocol PRN Reason: Sleep Last Admin: 09/09/16 22:24 Dose: 3 mg Methylprednisolone Sodium Succinate (Solu-Medrol 40 Mg) 40 mg IV Q12H [facility] Last Admin: 09/10/16 09:54 Dose: 40 mg Mometasone Furoate/Formoterol Fumar (Dulera 200/5 Mdi*) 2 puff INH BID [facility] Last Admin: 09/10/16 08:32 Dose: 2 puff Morphine Sulfate (Morphine Oral.Soln 10 Mg*) 10 mg PO Q4H PRN PRN Reason: air hunger Last Admin: 09/10/16 00:47 Dose: 10 mg Ondansetron HCl (Zofran Inj*) 4 mg IV Q6H PRN PRN Reason: NAUSEA Tiotropium [place] (Spiriva Cap.Inh*) 1 cap INH DAILY [facility] Last Admin: 09/10/16 08:34 Dose: 1 cap Valacyclovir HCl (Valtrex 500 Mg (*)) 500 mg PO DAILY [facility] PRN Reason: Protocol Last Admin: 09/10/16 09:55 Dose: 500 mg Vital Signs 09/09/16 09/09/16 09/09/16 16:13 17:51 19:29 Temperature 98.0 F 98.3 F Pulse Rate 96 90 Respiratory 18 18 20 Rate Blood Pressure 121/74 126/77 (mmHg) O2 Sat by Pulse 96 96 Oximetry 09/09/16 09/09/16 09/09/16 19:41 19:51 20:00 Temperature Pulse Rate 94 94 Respiratory 18 20 18 Rate Blood Pressure (mmHg) O2 Sat by Pulse 93 93 Oximetry 09/09/16 09/09/16 09/09/16 22:24 23:24 23:36 Temperature 98.2 F Pulse Rate 83 Respiratory 18 18 16 Rate Blood Pressure 130/89 (mmHg) O2 Sat by Pulse 95 Oximetry 09/10/16 09/10/16 09/10/16 00:47 02:47 04:00 Temperature 97.7 F Pulse Rate 74 Respiratory 20 18 16 Rate Blood Pressure 133/86 (mmHg) O2 Sat by Pulse 97 Oximetry 09/10/16 09/10/16 07:28 08:32 Temperature 98.1 F Pulse Rate 88 84 Respiratory 24 Rate Blood Pressure 129/72 (mmHg) O2 Sat by Pulse 96 91 Oximetry Oxygen Devices in Use Now: Nasal Cannula - 91%-5L Appearance: Middle aged male sitting up in bed, NAD Eyes: No Scleral Icterus Ears/Nose/Mouth/Throat: Mucous Membranes Moist Respiratory: Symmetrical Chest Expansion and Respiratory Effort, Clear to Auscultation - diminished breath sounds in all lung patricio Cardiovascular: NL Sounds; No Murmurs; No JVD, RRR, No Edema Abdominal: NL Sounds; No Tenderness; No Distention Extremities: No Clubbing, Cyanosis Skin: No Rash or Ulcers, No Nodules or Sclerosis Neurological: Alert and Oriented x 3 Result Diagrams: 09/07/16 05:45 09/07/16 05:45 Additional Lab and Data: Lab Results 09/04/16 09/04/16 09/04/16 Range/Units 03:30 03:30 03:30 WBC 14.1 H (3.5-10.8) 10^3/ul RBC 4.46 (4.0-5.4) 10^6/ul Hgb 14.5 (14.0-18.0) g/dl Hct 43 (42-52) % MCV 96 H (80-94) fL MCH 32 H (27-31) pg MCHC 34 (31-36) g/dl RDW 14 (10.5-15) % Plt Count 312 (150-450) 10^3/ul MPV 10 (7.4-10.4) um3 Neut % (Auto) 64.3 (38-83) % Lymph % (Auto) 19.4 L (25-47) % [place] % (Auto) 14.9 H (1-9) % Eos % (Auto) 0.3 (0-6) % Baso % (Auto) 1.1 (0-2) % Absolute Neuts (auto) 9.1 H (1.5-7.7) 10^3/ul Absolute Lymphs (auto) 2.7 (1.0-4.8) 10^3/ul Absolute Monos (auto) 2.1 H (0-0.8) 10^3/ul Absolute Eos (auto) 0 (0-0.6) 10^3/ul Absolute Basos (auto) 0.2 (0-0.2) 10^3/ul Absolute Nucleated RBC 0.03 10^3/ul Nucleated RBC % 0.2 D-Dimer, Quantitative > 1050 H (Less Than 230) ng/mL Sodium 134 (133-145) mmol/L Potassium 4.2 (3.5-5.0) mmol/L Chloride 100 L (101-111) mmol/L Carbon Dioxide 27 (22-32) mmol/L Anion Gap 7 (2-11) mmol/L BUN 21 (6-24) mg/dL Creatinine 0.94 (0.67-1.17) mg/dL Est GFR ( Amer) 105.6 (>60) Est GFR (Non-Af Amer) 82.1 (>60) BUN/Creatinine Ratio 22.3 H (8-20) Glucose 100 (70-100) mg/dL Lactic Acid (0.5-2.0) mmol/L Calcium 9.3 (8.6-10.3) mg/dL Total Bilirubin 0.70 (0.2-1.0) mg/dL AST 28 (13-39) U/L ALT 24 (7-52) U/L Alkaline Phosphatase 70 (34-104) U/L Troponin I 0.00 (<0.04) ng/mL B-Natriuretic Peptide ( - 100) pg/mL Total Protein 6.4 (6.4-8.9) g/dL Albumin 4.2 (3.2-5.2) g/dL Globulin 2.2 (2-4) g/dL Albumin/Globulin Ratio 1.9 (1-3) 09/04/16 09/04/16 Range/Units 03:30 03:30 WBC (3.5-10.8) 10^3/ul RBC (4.0-5.4) 10^6/ul Hgb (14.0-18.0) g/dl Hct (42-52) % MCV (80-94) fL MCH (27-31) pg MCHC (31-36) g/dl RDW (10.5-15) % Plt Count (150-450) 10^3/ul MPV (7.4-10.4) um3 Neut % (Auto) (38-83) % Lymph % (Auto) (25-47) % [place] % (Auto) (1-9) % Eos % (Auto) (0-6) % Baso % (Auto) (0-2) % Absolute Neuts (auto) (1.5-7.7) 10^3/ul Absolute Lymphs (auto) (1.0-4.8) 10^3/ul Absolute Monos (auto) (0-0.8) 10^3/ul Absolute Eos (auto) (0-0.6) 10^3/ul Absolute Basos (auto) (0-0.2) 10^3/ul Absolute Nucleated RBC 10^3/ul Nucleated RBC % D-Dimer, Quantitative (Less Than 230) ng/mL Sodium (133-145) mmol/L Potassium (3.5-5.0) mmol/L Chloride (101-111) mmol/L Carbon Dioxide (22-32) mmol/L Anion Gap (2-11) mmol/L BUN (6-24) mg/dL Creatinine (0.67-1.17) mg/dL Est GFR ( Amer) (>60) Est GFR (Non-Af Amer) (>60) BUN/Creatinine Ratio (8-20) Glucose (70-100) mg/dL Lactic Acid 0.8 (0.5-2.0) mmol/L Calcium (8.6-10.3) mg/dL Total Bilirubin (0.2-1.0) mg/dL AST (13-39) U/L ALT (7-52) U/L Alkaline Phosphatase (34-104) U/L Troponin I (<0.04) ng/mL B-Natriuretic Peptide 59 ( - 100) pg/mL Total Protein (6.4-8.9) g/dL Albumin (3.2-5.2) g/dL Globulin (2-4) g/dL Albumin/Globulin Ratio (1-3) Microbiology and Other Data: Microbiology 09/04/16 07:30 Legionella Urinary Antigen - Final Urine Negative Legionella Streptococcus pneumoniae Ag Screen - Final Negative S. pneumo Antigen 09/04/16 05:14 Nasal Screen MRSA (PCR)(ELIZ) - Final Nasal Mrsa Negative Assess/Plan/Problems-Billing Mr Singer is a 61 yo M with a h/o COPD, non-Hodgkins lymphoma in remission, HTN and HLD who presented to the ER with c/o SOB and was admitted to the ICU on BiPAP for a COPD exacerbation. - Patient Problems (1) Acute respiratory failure with hypoxia Current Visit: Yes Status: Acute Code(s): J96.01 - ACUTE RESPIRATORY FAILURE WITH HYPOXIA SNOMED Code(s): 40088712 Comment: The patient has acute on chronic hypoxic respiratory failure. He is on 5L O2 now- I have asked nursing to wean to achieve a sat of 88-92%. (2) COPD with exacerbation Current Visit: Yes Status: Acute Code(s): J44.1 - CHRONIC OBSTRUCTIVE PULMONARY DISEASE W (ACUTE) EXACERBATION SNOMED Code(s): 759443061 Comment: Breathing continues to improve. Oral morphine had no effect on his episodes of SOB. He has the [employer] machine and will be ready for d/c home tomorrow. (3) Anxiety and depression Current Visit: Yes Status: Acute Code(s): F41.9 - ANXIETY DISORDER, UNSPECIFIED; F32.9 - MAJOR DEPRESSIVE DISORDER, SINGLE EPISODE, UNSPECIFIED SNOMED Code(s): 405474782 Comment: Continue bupropion XL and ativan at night. (4) HTN (hypertension) Current Visit: Yes Status: Chronic Code(s): I10 - ESSENTIAL (PRIMARY) HYPERTENSION SNOMED Code(s): 23669864 Comment: BP is under good control on amlodipine 2.5mg daily. (5) HLD (hyperlipidemia) Current Visit: Yes Status: Chronic Code(s): E78.5 - HYPERLIPIDEMIA, UNSPECIFIED SNOMED Code(s): 16785502 Comment: Continue statin. (6) GERD (gastroesophageal reflux disease) Current Visit: Yes Status: Chronic Code(s): K21.9 - GASTRO-ESOPHAGEAL REFLUX DISEASE WITHOUT ESOPHAGITIS SNOMED Code(s): 719194804 Comment: Continue famotidine. (7) DVT prophylaxis Current Visit: Yes Status: Acute Code(s): ZRM3850 - SNOMED Code(s): 094351299 Comment: lovenox (8) Full code status Current Visit: Yes Status: Acute Code(s): Z78.9 - OTHER SPECIFIED HEALTH STATUS SNOMED Code(s): 735629658
[2016-09-10] MEDS: CMCS - Melatonin (NF) 3 MG TAB PO PRN (22:09)
[2016-09-10] MEDS: LORazepam INJ* 2 MG/ML 1 ML VIAL IV PUSH PRN (22:09)
[2016-09-11] MEDS: Enoxaparin(*) 40 MG/0.4 ML SYR SUBCUT SCH (04:35)
[2016-09-11 05:02] LABS: Hematocrit 41 % (42-52); Hemoglobin 13.6 g/dl (14.0-18.0); Mean Corpuscular HGB Conc 33 g/dl (31-36); Mean Corpuscular Hemoglobin 32 pg (27-31); Mean Corpuscular Volume 97 fL (80-94); Mean Platelet Volume 11 um3 (7.4-10.4); Red Blood Count 4.25 10^6/ul (4.0-5.4); Red Cell Distribution Width 14 % (10.5-15)
[2016-09-11 05:11] LABS: BUN/Creatinine Ratio 29.3 (8-20); Calcium 8.8 mg/dL (8.6-10.3); EGFR African American 123.7 (>60); EGFR Non-African American 96.2 (>60)
[2016-09-11] MEDS: Mometasone/Formoter 200/5 MDI INH SCH (07:32)
[2016-09-11] MEDS: Tiotropium CAP.INH* CAP.INH/18 MCG INH SCH (07:34)
[2016-09-11] MEDS ORDERED: predniSONE TAB* 20 MG PO SCH (09:00)
[2016-09-11] MEDS: amLODIPine TAB* 5 MG PO SCH (10:32)
[2016-09-11] MEDS: Atorvastatin* 20 MG TAB PO SCH (10:32)
[2016-09-11] MEDS: ValACYclovir (*) 500 MG TAB PO SCH (10:33)
[2016-09-11] MEDS: Famotidine TAB* 20 MG PO SCH (10:33)
[2016-09-11] MEDS: BuPROPion XL* 300 MG TAB.XL PO SCH (10:33)
[2016-09-11 12:11] VITALS: BP 136/80
--- NOTE | 2016-09-12 01:33 | DS ---
DISCHARGE SUMMARY: DATE OF ADMISSION: 09/04/16 DATE OF DISCHARGE: 09/11/16 PRIMARY CARE PROVIDER: Dr. Carver. SECURITY SYSTEM ADMINISTRATOR: Dr. Cho. PRINCIPAL DIAGNOSES: 1. Severe chronic obstructive pulmonary disease exacerbation. 2. Acute on chronic hypoxic respiratory failure. SECONDARY DIAGNOSES: 1. Anxiety/depression. 2. Hypertension. 3. Hyperlipidemia. 4. Gastroesophageal reflux disease. DISCHARGE MEDICATIONS: 1. Multivitamin 1 tab p.o. daily. 2. Symbicort 160/4.5 two puffs inhaled twice daily. 3. Spiriva 1 puff inhaled daily. 4. Valtrex 500 mg p.o. daily. 5. Famotidine 20 mg p.o. b.i.d. 6. Bupropion HCl 300 mg p.o. daily. 7. Crestor 10 mg p.o. daily. 8. Amlodipine 2.5 mg p.o. daily. 9. Prednisone 40 mg p.o. daily x3 days, then 30 mg x3 days, then 20 mg x3 days , then 10 mg x3 days. 10. Robitussin AC 5 mL p.o. q.4 hours p.r.n. cough. 11. Morphine oral solution 10 mg p.o. q.4 hours p.r.n. air hunger. 12. Albuterol one neb inhaled q.2 hours p.r.n. shortness of breath. HOSPITAL COURSE: Mr. Singer is a 61-year-old male who follows with Dr. Cho for severe COPD, who presented to the emergency room with complaints of shortness of breath. The patient was ultimately admitted to the intensive care unit for a severe COPD exacerbation. The patient was essentially BiPAP dependent until about 09/07/16. At that point, he appeared to turn a corner and be able to spend more time off the BiPAP. The patient continues to have episodes of shortness of breath, especially while up with ambulation; however, overall is much improved. The patient was treated initially for a possible community-acquired pneumonia as a precipitant to his COPD exacerbation with ceftriaxone and azithromycin. The patient received 5 days of treatment for this. The patient was treated with standing nebulizers, IV steroids, and ultimately morphine for air hunger. While the patient's shortness of breath was very severe, the morphine, he does state, helped. The patient has been having coughing fits which are improving. A prescription for Robitussin AC will be sent on discharge for the patient as he states this helps with his coughing. Morphine oral solution will also be sent for air hunger. The patient has been stable in terms of his other medical problems and had been maintained on his usual home medication regimen. PHYSICAL EXAMINATION: On the day of discharge, the patient's physical exam reveals a blood pressure of 119/79, pulse of 92, respirations 18, a temp of 98.1 , and O2 sat of 95% on 3 liters. The patient is awake, alert, sitting up in bed , appearing comfortable on the 3 liters of nasal cannula oxygen. Cardiac exam reveals a normal S1 and S2, regular rate and rhythm without any murmurs. There is no lower extremity edema. Pulmonary: Lung sounds are clear in all lungs patricio, though it is still diminished. The patient's abdomen is soft, nontender , and nondistended. At this point, the patient is stable for discharge home. FOLLOWUP CONCERNS: The patient is being discharged home today, 09/11/16. He is to follow up with Dr. Carver in the next 7 to 10 days. The patient's primary care provider office will contact the patient with an appointment date and time. Additionally, the patient has a followup appointment with Dr. Cho. The patient has been set up with a [employer] machine by Dr. Cho and this is going home with the patient today. ACTIVITY LEVEL: As tolerated. DIET: Regular. CONDITION ON DISCHARGE: Improved and stable. TIME SPENT: Forty minutes was spent discharging the patient. CC: Dr. Carver; Dr. Cho * [id number]/[facility] #: [id number] [facility]
--- NOTE | 2016-09-13 09:36 | PN ---
Progress Note - Progress Note Note: Pt's called today that morphine prescription sent to [facility] by Dr. Pedro on 09/11/16 has the concentration of morphine that the pharmacy can't get. spoke with the pharmacist and prescribed morphine 20mg/ml concentration for 10 days supply.
== END 2016-09-11 12:20 | disposition home or self-care (01) | DRG 140 ==
LOC: ED 03:26 → ICU 04:20 → MED 09-07 11:02
PROVIDERS: ADMIT Hospitalist; ATTEND Hospitalist
PROC: 5A09457 Assistance with Respiratory Ventilation, 24-96 Consecutive Hours, Continuous Positive Airway Pressure (ICD-10-PCS; principal; 2016-09-04)
DX: J44.1 Chronic obstructive pulmonary disease with (acute) exacerbation (principal); J96.21 Acute and chronic respiratory failure with hypoxia; J18.9 Pneumonia, unspecified organism; E78.00 Pure hypercholesterolemia, unspecified; J44.0 Chronic obstructive pulmonary disease with (acute) lower respiratory infection; I10 Essential (primary) hypertension; E78.5 Hyperlipidemia, unspecified; K21.9 Gastro-esophageal reflux disease without esophagitis; F32.9 Major depressive disorder, single episode, unspecified; F41.9 Anxiety disorder, unspecified; F45.8 Other somatoform disorders; Z85.72 Personal history of non-Hodgkin lymphomas; Z92.21 Personal history of antineoplastic chemotherapy; Z90.81 Acquired absence of spleen; Z83.3 Family history of diabetes mellitus; Z80.7 Family history of other malignant neoplasms of lymphoid, hematopoietic and related tissues; Z72.89 Other problems related to lifestyle; Z87.891 Personal history of nicotine dependence; Z82.49 Family history of ischemic heart disease and other diseases of the circulatory system; Z99.81 Dependence on supplemental oxygen; Z86.61 Personal history of infections of the central nervous system; Z79.52 Long term (current) use of systemic steroids
CPT/HCPCS: 36415; 71010; 71275; 80048; 80053; 82803; 83605; 83880; 84484; 85025; 85027; 85379; 87040; 87641; 87899; 93005; 94640; 94660; 94760; 94761; A9270-GY; J0456; J0696; J1650; J2060; J2270; J2920; J2930; J7512; Q9967

== ENCOUNTER 2017-08-25 20:34 | Emergency (ER) | payer BC ==
[2017-08-25 21:01] VITALS: BP 144/70
[2017-08-25] MEDS ORDERED: Fluorescein Sod TOPICAL 0.6* 0.6 MG TEST OPHTHALMIC ONE (21:03)
--- NOTE | 2017-08-25 21:03 | UC ---
Eye Complaint HPI - HPI Summary HPI Summary: 62 yo male presents with left eye redness, irritation, and clear drainage since yesterday. He has an extensive eye history. He tells me that about a year ago he had right eye herpes zoster. Also has a hx of "lymphoma behind the eyes" and is followed by [facility] for this - last biopsy was 6 months ago and was told it has returned. Last evening he noticed some left eye redness and clear drainage. He does wear contacts - last time he wore these was 2 days ago. Currently wearing glasses. Denies fever, chills, vision changes, headache, dizziness. - History of Current Complaint Stated Complaint: LEFT EYE COMPLAINT Time Seen by Provider: 08/25/17 20:58 Hx Obtained From: Patient Onset/Duration: Sudden Onset Timing: Constant Severity Currently: None - Allergies/Home Medications Allergies/Adverse Reactions: Allergies Allergy/AdvReac Type Severity Reaction Status Date / Time No Known Allergies Allergy Verified 08/25/17 21:02 PMH/Surg Hx/FS Hx/Imm Hx - Additional Past Medical History Additional PMH: Lymphoma Cardiovascular History: Hypertension Respiratory History: COPD, Asthma Psychological History: Anxiety - Surgical History Surgical History: Yes Surgery Procedure, Year, and Place: SPLENECTOMY 1999, NASAL SEPTUM, Lt achiles tendon repair - Family History Known Family History: Positive: Diabetes - Mother, Other - Lymphoma - Father - Social History Lives: With Family Alcohol Use: None Substance Use Type: None Smoking Status (MU): Former Smoker - Quit 1 year ago Type: Cigarettes Have You Smoked in the Last Year: No When Did the Patient Quit Smoking/Using Tobacco: about a year ago - Immunization History Most Recent Influenza Vaccination: 2016 Most Recent Tetanus Shot: up to date Most Recent Pneumonia Vaccination: 2016 Review of Systems Constitutional: Negative Skin: Negative Eyes: Drainage, Eye Redness ENT: Negative Respiratory: Negative Cardiovascular: Negative Neurovascular: Negative Neurological: Negative Psychological: Negative All Other Systems Reviewed And Are Negative: Yes Physical Exam - Summary Physical Exam Summary: GENERAL: NAD. WDWN. No pain distress. SKIN: No rashes, sores, lesions, or open wounds. HEENT: Head: AT/NC Eyes: EOM intact. Left eye: Conjunctiva with moderate inflammation and clear drainage. Eye stained with fulglow: no increased uptake. No eileen sign or dendritic lesion. No periorbital edema or erythema or lesions Nose: Nasal mucosa pink and moist. NTTP maxillary and frontal sinus. NECK: Supple. Nontender. No lymphadenopathy. CHEST: CTAB. No r/r/w. No accessory muscle use. Breathing comfortably and in no distress. CV: RRR. Without m/r/g. Pulses intact. Brisk cap refill. NEURO: Alert. CN II-XII grossly intact. PSYCH: Age appropriate behavior. Triage Information Reviewed: Yes Vital Signs: Vital Signs: Temp Pulse Resp BP Pulse Ox 98.8 F 91 18 144/70 94 08/25/17 20:57 08/25/17 20:57 08/25/17 20:57 08/25/17 20:57 08/25/17 20:57 Eye Complaint Course/Dx - Course Course Of Treatment: Left eye conjunctivitis. Advised to call his eye doctor in [place] to make them aware of his symptoms and if they would like to see him. Will cover him with cipro eye drops. - Differential Dx/Diagnosis Provider Diagnoses: Left eye conjunctivitis Discharge - Sign-Out/Discharge Documenting (check all that apply): Discharge/Admit/Transfer - Discharge Plan Condition: Stable Disposition: HOME Patient Education Materials: Conjunctivitis (ED) Referrals: Tacos Carver MD [Primary Care Provider] - Additional Instructions: If you develop a fever, shortness of breath, chest pain, new or worsening symptoms - please call your PCP or go to the ED. Your blood pressure was high at todays visit. Please see your primary provider within 4 weeks for recheck and re-evaluation. 1) Please call your eye doctor in [place] and make them aware of your eye irritation - Billing Disposition and Condition Condition: STABLE Disposition: HOME
[2017-08-25] MEDS ORDERED: Ciprofloxacin 0.3% OPTH.SOL* 2.5 ML BTL LEFT EYE ONE (21:10)
== END 2017-08-25 21:20 | disposition home or self-care (01) ==
LOC: UCEAST 20:34
DX: H10.9 Unspecified conjunctivitis (principal); I10 Essential (primary) hypertension; Z87.891 Personal history of nicotine dependence
CPT/HCPCS: 99202; A9270-GY; G0463

== ENCOUNTER 2021-12-14 10:09 | Inpatient (IN) ==
[2021-12-14 11:09] LABS: ABS Eosinophils 0.2 10^3/ul (0-0.6); ABS Lymphocytes 0.8 10^3/ul (1.0-4.8); ABS Monocytes 0.6 10^3/ul (0-0.8); ABS Neutrophils 2.7 10^3/ul (1.5-7.7); Eosinophil % 5.5 %; Hematocrit 46 % (42-52); Hemoglobin 14.9 g/dL (14.0-18.0); Lymphocyte % 17.4 %; Mean Corpuscular HGB Conc 33 g/dL (31-36); Mean Corpuscular Hemoglobin 32 pg (27-31); Mean Corpuscular Volume 98 fL (80-94); Mean Platelet Volume 10.6 fL (7.4-10.4); Nucleated Red Blood Cells % 0.1; Platelet Count 212 10^3/uL (150-450); Red Blood Count 4.65 10^6 /uL (4.18-5.48); Red Cell Distribution Width 15 % (10-15); White Blood Count 4.4 10^3/uL (3.5-10.8)
[2021-12-14 11:29] LABS: Albumin/Globulin Ratio 1.9 (1-3); Globulin 2.1 g/dL (2-4); Potassium 4.6 mmol/L (3.5-5.0); Total Bilirubin 0.4 mg/dL (0.2-1.0); Total Protein 6.1 g/dL (6.4-8.9); eGFR CKD-EPI 94.1 (>60)
[2021-12-14 12:21] LABS: Large Platelets Present
[2021-12-14] MEDS ORDERED: methylPREDNISolone SOD SUCC 40 mg/ml 1 ml VIAL IV ONE ×2 (13:10→21:24)
[2021-12-14] MEDS ORDERED: NS 0.9% 1000 ml BAG 1,000 ML IV SCH (13:45)
[2021-12-14] MEDS ORDERED: Albuterol/Ipratropium NEB.SOL (2.5/0.5 MG) 3 ML NEB.SOLN INH PRN (13:54)
[2021-12-14] MEDS ORDERED: Albuterol HFA INHALER 8 gm MDI INH PRN (13:54)
[2021-12-14] MEDS: Enoxaparin 40 MG/0.4 ML SYR SUBCUT SCH (15:10)
[2021-12-14] MEDS ORDERED: Albuterol/Ipratropium NEB.SOL (2.5/0.5 MG) 3 ML NEB.SOLN INH ONE (15:14)
[2021-12-14] MEDS ORDERED: Mometasone 220 MCG MDI INH SCH (19:00)
[2021-12-14] MEDS: Albuterol/Ipratropium NEB.SOL (2.5/0.5 MG) 3 ML NEB.SOLN INH SCH (19:03)
[2021-12-14] MEDS: Albuterol HFA INHALER 8 gm MDI INH PRN ×2 (21:22→23:04)
[2021-12-14 21:41] LABS: PCO2 Arterial 45 mmHg (35-45); PO2 Arterial 79 mmHg (80-100)
[2021-12-14] MEDS: buPROPion SR 200 mg TAB.SR PO SCH (22:07)
[2021-12-15] MEDS: Albuterol/Ipratropium NEB.SOL (2.5/0.5 MG) 3 ML NEB.SOLN INH SCH ×4 (02:46→19:45)
[2021-12-15 07:16] LABS: ABS Lymphocytes 0.4 10^3/ul (1.0-4.8); ABS Monocytes 0.5 10^3/ul (0-0.8); ABS Neutrophils 6.2 10^3/ul (1.5-7.7); Hematocrit 42 % (42-52); Lymphocyte % 5.5 %; Mean Corpuscular HGB Conc 34 g/dL (31-36); Mean Corpuscular Hemoglobin 33 pg (27-31); Mean Corpuscular Volume 98 fL (80-94); Mean Platelet Volume 11.2 fL (7.4-10.4); Nucleated Red Blood Cells % 0.1; Platelet Count 207 10^3/uL (150-450); Red Blood Count 4.24 10^6 /uL (4.18-5.48); Red Cell Distribution Width 15 % (10-15)
[2021-12-15] MEDS ORDERED: Umeclidin/Vilant 62.5 MDI 62.5/25 mcg 14 INH ELLIPTA DEVICE INH SCH (09:00)
[2021-12-15 09:22] LABS: CO2 Carbon Dioxide 24 mmol/L (22-32); Calcium 9.2 mg/dL (8.6-10.3); Chloride 103 mmol/L (101-111); Sodium 135 mmol/L (135-145)
[2021-12-15 09:27] LABS: Blood Urea Nitrogen 20 mg/dL (6-24); Glucose 126 mg/dL (70-100); eGFR CKD-EPI 96.4 (>60)
[2021-12-15 09:29] LABS: Anion Gap 8 mmol/L (2-11)
[2021-12-15] MEDS ORDERED: Piperacillin/Tazobac ADVAN 3.375 GM in NS 0.9% 100 ml BAG 100 ML IV ONE (09:39)
[2021-12-15] MEDS ORDERED: Zosyn per Pharmacy NOTE FOLLOW UP SCH (10:00)
[2021-12-15] MEDS: Enoxaparin 40 MG/0.4 ML SYR SUBCUT SCH (14:05)
[2021-12-15] MEDS: ZOSYN 3.375 GM Q8H per EXTENDED INFUSION IV SCH ×2 (15:13→23:42)
[2021-12-15] MEDS: Albuterol HFA INHALER 8 gm MDI INH PRN (19:36)
[2021-12-16] MEDS: Albuterol/Ipratropium NEB.SOL (2.5/0.5 MG) 3 ML NEB.SOLN INH SCH ×4 (01:24→19:24)
[2021-12-16 05:21] LABS: ABS Lymphocytes 0.4 10^3/ul (1.0-4.8); ABS Monocytes 0.5 10^3/ul (0-0.8); ABS Neutrophils 6.6 10^3/ul (1.5-7.7); Hematocrit 41 % (42-52); Hemoglobin 13.6 g/dL (14.0-18.0); Lymphocyte % 5.5 %; Mean Corpuscular HGB Conc 33 g/dL (31-36); Mean Corpuscular Hemoglobin 33 pg (27-31); Mean Corpuscular Volume 98 fL (80-94); Mean Platelet Volume 10.3 fL (7.4-10.4); Platelet Count 220 10^3/uL (150-450); Red Blood Count 4.19 10^6 /uL (4.18-5.48); Red Cell Distribution Width 15 % (10-15); White Blood Count 7.5 10^3/uL (3.5-10.8)
[2021-12-16 05:53] LABS: Calcium 9.3 mg/dL (8.6-10.3); Potassium 4.7 mmol/L (3.5-5.0); eGFR CKD-EPI 85.1 (>60)
[2021-12-16] MEDS ORDERED: methylPREDNISolone SOD SUCC 40 mg/ml 1 ml VIAL IV SCH (06:00)
[2021-12-16] MEDS: ZOSYN 3.375 GM Q8H per EXTENDED INFUSION IV SCH ×3 (06:02→21:20)
[2021-12-16] MEDS: buPROPion SR 200 mg TAB.SR PO SCH (09:16)
[2021-12-16] MEDS: Enoxaparin 40 MG/0.4 ML SYR SUBCUT SCH (13:57)
[2021-12-17] MEDS: Albuterol/Ipratropium NEB.SOL (2.5/0.5 MG) 3 ML NEB.SOLN INH SCH ×3 (01:31→13:33)
[2021-12-17 05:32] LABS: ABS Lymphocytes 0.5 10^3/ul (1.0-4.8); ABS Monocytes 1.1 10^3/ul (0-0.8); ABS Neutrophils 7.3 10^3/ul (1.5-7.7); Hematocrit 40 % (42-52); Hemoglobin 13.5 g/dL (14.0-18.0); Lymphocyte % 5.3 %; Mean Corpuscular HGB Conc 34 g/dL (31-36); Mean Corpuscular Hemoglobin 33 pg (27-31); Mean Corpuscular Volume 97 fL (80-94); Mean Platelet Volume 9.8 fL (7.4-10.4); Nucleated Red Blood Cells % 0.4; Platelet Count 223 10^3/uL (150-450); Red Blood Count 4.09 10^6 /uL (4.18-5.48); Red Cell Distribution Width 14 % (10-15); White Blood Count 8.8 10^3/uL (3.5-10.8)
[2021-12-17 06:01] LABS: Calcium 9.1 mg/dL (8.6-10.3); Potassium 4.2 mmol/L (3.5-5.0); eGFR CKD-EPI 92.9 (>60)
[2021-12-17] MEDS: ZOSYN 3.375 GM Q8H per EXTENDED INFUSION IV SCH ×2 (06:21→12:34)
[2021-12-17] MEDS: buPROPion SR 200 mg TAB.SR PO SCH (08:18)
[2021-12-17 08:49] VITALS: BP 147/80
[2021-12-17] MEDS: Enoxaparin 40 MG/0.4 ML SYR SUBCUT SCH (12:34)
== END 2021-12-17 15:15 | disposition home or self-care (01) | DRG 191 ==
LOC: ED 10:09 → EDHOLD 10:09 → ICU 21:00 → MED 21:13 → ICU 23:00
PROVIDERS: ADMIT Internal Medicine; ATTEND Internal Medicine

== ENCOUNTER 2024-05-11 01:03 | Inpatient (IN) ==
[2024-05-11 01:33] LABS: ABS Lymphocytes 0.4 10^3/uL (1.0-4.8); ABS Monocytes 1.3 10^3/uL (0.0-1.1); ABS Nucleated RBC 0.02 10^3/ul; Eosinophil % 0.1 %; Hematocrit 37.5 % (38-53); Hemoglobin 13.1 g/dL (13.2-16.3); Lymphocyte % 4.1 %; Mean Corpuscular Hemoglobin 34.1 pg (27-33); Mean Corpuscular Hgb Conc 34.8 g/dL (31-36); Mean Platelet Volume 10.7 fL (7.5-11.2); Nucleated Red Blood Cells % 0.2 %/100WBC (0.0-0.8); Platelet Count 169 10^3/uL (150-450); Red Blood Count 3.83 10^6/uL (4.06-5.63); Red Cell Distribution Width 17.9 % (12-17); White Blood Count 9.8 10^3/uL (3.6-10.2)
[2024-05-11] MEDS: Albuterol/Ipratropium NEB.SOL (2.5/0.5 MG) 3 ML NEB.SOLN INH ONE ×2 (01:36→02:41)
[2024-05-11] MEDS: methylPREDNISolone SOD SUCC 125 mg 2 ML VIAL IV ONE (01:51)
[2024-05-11 02:04] LABS: Activated Partial Thrombo Time 27.4 seconds (26.0-38.0); INR 1.06 (0.85-1.14)
[2024-05-11 02:33] LABS: Urine Appearance Clear; Urine Bilirubin Negative (Negative); Urine Blood 1+ (Negative); Urine Color Light-Yellow; Urine Glucose Negative (Negative); Urine Ketones Negative (Negative); Urine Nitrite Negative (Negative); Urine Protein Negative (Negative); Urine Specific Gravity 1.018 (1.002-1.030); Urine Urobilinogen Negative (Negative); Urine pH 5.5 (5.0-8.0)
[2024-05-11 02:34] LABS: Urine Bacteria Absent /HPF (Absent); Urine Red Blood Cell Absent /HPF (0-Trace); Urine White Blood Cell Trace(0-5/hpf) /HPF (0-Trace)
[2024-05-11] MEDS ORDERED: Albuterol/Ipratropium NEB.SOL (2.5/0.5 MG) 3 ML NEB.SOLN ONE (02:39)
[2024-05-11 02:53] LABS: Albumin 4.1 g/dL (3.5-5.7); Albumin/Globulin Ratio 1.7 (1-3); C Reactive Protein 44.89 mg/L (<8.01); Calcium 8.4 mg/dL (8.6-10.3); Creatinine, Serum 0.95 mg/dL (0.67-1.17); Globulin 2.4 g/dL (2-4); Potassium 3.9 mmol/L (3.5-5.0); Total Bilirubin 0.7 mg/dL (0.2-1.0); Total Protein 6.5 g/dL (6.4-8.9); eGFR CKD-EPI 87.7 (>60)
[2024-05-11 02:56] LABS: High Sensitivity Troponin 1 Hr 21 pg/mL (<20)
[2024-05-11] MEDS: Iohexol 350 (CONTRAST) 500 ML MDV IV ONE (05:55)
[2024-05-11] MEDS: Albuterol/Ipratropium NEB.SOL (2.5/0.5 MG) 3 ML NEB.SOLN INH SCH ×2 (11:17→19:02)
[2024-05-11] MEDS ORDERED: Umeclidin/Vilant 62.5 MDI 62.5/25 mcg 14 INH ELLIPTA DEVICE INH SCH (12:00)
[2024-05-11] MEDS: Enoxaparin 40 MG/0.4 ML SYR SUBCUT SCH (13:18)
[2024-05-11] MEDS: buPROPion SR 100 mg TAB.SR PO SCH (13:50)
[2024-05-11] MEDS: FLUTICAS/UMECLI/VILANT 200-62.5-25 MDI (NF) INH SCH (13:51)
[2024-05-11] MEDS: CAPECITABINE 500 MG PO SCH ×2 (13:51→20:12)
[2024-05-11] MEDS: methylPREDNISolone SOD SUCC 40 mg/ml 1 ml VIAL IV ONE (19:57)
[2024-05-11] MEDS ORDERED: Budesonide Flexhaler 180 (NF) 180 MCG/ACT MDI INH SCH (21:00)
[2024-05-12 06:15] LABS: ABS Lymphocytes 0.3 10^3/uL (1.0-4.8); ABS Monocytes 1.1 10^3/uL (0.0-1.1); ABS Neutrophils 6.6 10^3/uL (1.5-7.6); ABS Nucleated RBC 0.04 10^3/ul; Hematocrit 37.4 % (38-53); Lymphocyte % 3.7 %; Mean Corpuscular Hemoglobin 34.2 pg (27-33); Mean Corpuscular Hgb Conc 34.8 g/dL (31-36); Mean Corpuscular Volume 98.1 fL (80-97); Mean Platelet Volume 10.5 fL (7.5-11.2); Nucleated Red Blood Cells % 0.5 %/100WBC (0.0-0.8); Platelet Count 129 10^3/uL (150-450); Red Blood Count 3.82 10^6/uL (4.06-5.63)
[2024-05-12 06:37] LABS: Creatinine, Serum 0.79 mg/dL (0.67-1.17); Magnesium 2.4 mg/dL (1.9-2.7); Potassium 4.7 mmol/L (3.5-5.0); eGFR CKD-EPI 97.4 (>60)
[2024-05-12] MEDS: Cholecalciferol (VIT D3) 1,000 unit TAB PO SCH (09:24)
[2024-05-12] MEDS: CAPECITABINE 500 MG PO SCH (09:25)
[2024-05-12] MEDS: Azithromycin 500 mg/250 ml NS 500 MG/250 ML BAG IVPB SCH (18:01)
[2024-05-12] MEDS: cefTRIAXone 1 gm/50 mL D5W 1 GM/50 ML BAG IV SCH (19:53)
[2024-05-13] MEDS: Albuterol/Ipratropium NEB.SOL (2.5/0.5 MG) 3 ML NEB.SOLN INH ONE (02:31)
[2024-05-13 03:13] LABS: Venous Bicarbonate HCO3 27.5 mmol/L (24-28)
[2024-05-13] MEDS: Magnesium Sulf 4 GM/100 ML IV 4,000 MG/100 ML BAG IVPB ONE (03:13)
[2024-05-13] MEDS: methylPREDNISolone SOD SUCC 40 mg/ml 1 ml VIAL IV SCH (03:15)
[2024-05-13] MEDS: Morphine 2 MG/ML SYRINGE IV ONE (03:25)
[2024-05-13 03:43] LABS: Albumin 3.8 g/dL (3.5-5.7); Albumin/Globulin Ratio 1.8 (1-3); Calcium 8.5 mg/dL (8.6-10.3); Creatinine, Serum 0.85 mg/dL (0.67-1.17); Globulin 2.1 g/dL (2-4); Magnesium 2.2 mg/dL (1.9-2.7); Potassium 4.1 mmol/L (3.5-5.0); Total Bilirubin 0.8 mg/dL (0.2-1.0); Total Protein 5.9 g/dL (6.4-8.9); eGFR CKD-EPI 95.2 (>60)
[2024-05-13 03:51] LABS: Hematocrit 37.3 % (38-53); Mean Corpuscular Hemoglobin 34.1 pg (27-33); Mean Corpuscular Hgb Conc 34.9 g/dL (31-36); Mean Corpuscular Volume 97.8 fL (80-97); Red Blood Count 3.82 10^6/uL (4.06-5.63); Red Cell Distribution Width 18.3 % (12-17); White Blood Count 6.6 10^3/uL (3.6-10.2)
[2024-05-13 04:47] LABS: ABS Lymphocytes 1.1 10^3/uL (1.0-4.8); ABS Monocytes 0.8 10^3/uL (0.0-1.1); ABS Neutrophils 4.7 10^3/uL (1.5-7.6); ABS Nucleated RBC 0.06 10^3/ul; Lymphocyte % 16.9 %; Mean Platelet Volume 10.6 fL (7.5-11.2); Platelet Count 97 10^3/uL (150-450)
[2024-05-13] MEDS: Albuterol/Ipratropium NEB.SOL (2.5/0.5 MG) 3 ML NEB.SOLN INH SCH ×2 (07:19→10:24)
[2024-05-13] MEDS: Morphine 2 MG/ML SYRINGE IV PRN (08:06)
[2024-05-13] MEDS: cefTRIAXone 2 gm/50 mL D5W 2 GM/50 ML BAG IV SCH (10:17)
[2024-05-13] MEDS ORDERED: cefTRIAXone 2 gm/50 mL D5W 2 GM/50 ML BAG IV SCH (18:00)
[2024-05-14 05:17] LABS: Hematocrit 36.8 % (38-53); Hemoglobin 12.6 g/dL (13.2-16.3); Mean Corpuscular Hemoglobin 33.2 pg (27-33); Mean Corpuscular Hgb Conc 34.2 g/dL (31-36); Mean Corpuscular Volume 97.3 fL (80-97); Mean Platelet Volume 10.9 fL (7.5-11.2); Platelet Count 99 10^3/uL (150-450); Red Blood Count 3.79 10^6/uL (4.06-5.63); Red Cell Distribution Width 18.9 % (12-17); White Blood Count 6.9 10^3/uL (3.6-10.2)
[2024-05-14 05:50] LABS: ALT 55 U/L (7-52); Albumin 3.5 g/dL (3.5-5.7); Albumin/Globulin Ratio 1.3 (1-3); Alkaline Phosphatase 80 U/L (35-149); Anion Gap 9 mmol/L (2-16); Blood Urea Nitrogen 22 mg/dL (6-24); CO2 Carbon Dioxide 27 mmol/L (22-32); Calcium 8.6 mg/dL (8.6-10.3); Chloride 97 mmol/L (101-111); Creatinine, Serum 0.52 mg/dL (0.67-1.17); Globulin 2.7 g/dL (2-4); Glucose 135 mg/dL (70-100); Sodium 133 mmol/L (135-145); Total Bilirubin 0.6 mg/dL (0.2-1.0); Total Protein 6.2 g/dL (6.4-8.9); eGFR CKD-EPI 110.5 (>60)
[2024-05-14 07:30] LABS: Magnesium 2.6 mg/dL (1.9-2.7)
[2024-05-14 07:31] LABS: Phosphorus 2.3 mg/dL (2.5-5.0); Potassium Redraw 4.6 mmol/L (3.5-5.0)
[2024-05-14] MEDS ORDERED: Sodium Phosphate IV 45 MMOL in NS 0.9% 250 ml 250 ML IV ONE (08:50)
[2024-05-14] MEDS ORDERED: Sodium Phosphate IV 0 MMOL in NS 0.9% 250 ml 250 ML IV ONE (10:41)
[2024-05-14] MEDS: Sodium Phosphate IV 15 MMOL in NS 0.9% 250 ml 250 ML IV ONE (11:16)
[2024-05-15 05:28] LABS: ABS Lymphocytes 0.2 10^3/uL (1.0-4.8); ABS Monocytes 0.9 10^3/uL (0.0-1.1); ABS Neutrophils 6.8 10^3/uL (1.5-7.6); ABS Nucleated RBC 0.01 10^3/ul; Hematocrit 34.9 % (38-53); Hemoglobin 11.9 g/dL (13.2-16.3); Lymphocyte % 2.4 %; Mean Corpuscular Hemoglobin 33.3 pg (27-33); Mean Corpuscular Hgb Conc 34.2 g/dL (31-36); Mean Corpuscular Volume 97.2 fL (80-97); Mean Platelet Volume 10.1 fL (7.5-11.2); Nucleated Red Blood Cells % 0.1 %/100WBC (0.0-0.8); Platelet Count 103 10^3/uL (150-450); Red Blood Count 3.59 10^6/uL (4.06-5.63); Red Cell Distribution Width 19.4 % (12-17); White Blood Count 7.9 10^3/uL (3.6-10.2)
[2024-05-15 06:20] LABS: Phosphorus 2.8 mg/dL (2.5-5.0); Potassium 4.7 mmol/L (3.5-5.0)
[2024-05-15 06:22] LABS: Albumin 3.3 g/dL (3.5-5.7); Albumin/Globulin Ratio 1.4 (1-3); Calcium 8.5 mg/dL (8.6-10.3); Creatinine, Serum 0.62 mg/dL (0.67-1.17); Globulin 2.3 g/dL (2-4); Total Bilirubin 0.5 mg/dL (0.2-1.0); Total Protein 5.6 g/dL (6.4-8.9); eGFR CKD-EPI 104.8 (>60)
[2024-05-15] MEDS: Sodium Phosphate IV 15 MMOL in NS 0.9% 250 ml 250 ML IV ONE (12:27)
[2024-05-15] MEDS: Benzocaine/Menthol LOZ PO PRN (15:11)
[2024-05-15 16:51] LABS: Immunoglobulin G3 12.6 mg/dL; Immunoglobulin G4 4.5 mg/dL
[2024-05-15] MEDS: methylPREDNISolone SOD SUCC 40 mg/ml 1 ml VIAL IV SCH (17:31)
[2024-05-16 06:46] LABS: Albumin 3.5 g/dL (3.5-5.7); Albumin/Globulin Ratio 1.3 (1-3); Creatinine, Serum 0.74 mg/dL (0.67-1.17); Globulin 2.6 g/dL (2-4); Potassium 4.2 mmol/L (3.5-5.0); Total Bilirubin 0.6 mg/dL (0.2-1.0); Total Protein 6.1 g/dL (6.4-8.9); eGFR CKD-EPI 99.3 (>60)
[2024-05-16 07:01] LABS: Hematocrit 34.6 % (38-53); Hemoglobin 11.9 g/dL (13.2-16.3); Mean Corpuscular Hemoglobin 33.7 pg (27-33); Mean Corpuscular Hgb Conc 34.3 g/dL (31-36); Mean Corpuscular Volume 98.1 fL (80-97); Mean Platelet Volume 10.5 fL (7.5-11.2); Platelet Count 111 10^3/uL (150-450); Red Blood Count 3.52 10^6/uL (4.06-5.63)
[2024-05-16] MEDS: Albuterol/Ipratropium NEB.SOL (2.5/0.5 MG) 3 ML NEB.SOLN INH SCH ×2 (07:07→13:12)
[2024-05-16] MEDS: Polyethylene Glycol 3350 17 GM PACKET PO SCH (09:46)
[2024-05-17 07:52] LABS: Hematocrit 36.2 % (38-53); Hemoglobin 12.5 g/dL (13.2-16.3); Mean Corpuscular Hemoglobin 34.1 pg (27-33); Mean Corpuscular Hgb Conc 34.6 g/dL (31-36); Mean Corpuscular Volume 98.4 fL (80-97); Mean Platelet Volume 9.9 fL (7.5-11.2); Platelet Count 110 10^3/uL (150-450); Red Blood Count 3.67 10^6/uL (4.06-5.63); Red Cell Distribution Width 18.3 % (12-17); White Blood Count 6.6 10^3/uL (3.6-10.2)
[2024-05-17 08:00] LABS: Calcium 8.6 mg/dL (8.6-10.3); Creatinine, Serum 0.8 mg/dL (0.67-1.17); Magnesium 2.1 mg/dL (1.9-2.7); Potassium 3.8 mmol/L (3.5-5.0)
[2024-05-17 08:15] LABS: ABS Lymphocytes 0.6 10^3/uL (1.0-4.8); ABS Monocytes 0.7 10^3/uL (0.0-1.1); ABS Neutrophils 5.3 10^3/uL (1.5-7.6); ABS Nucleated RBC 0.02 10^3/ul; Giant Platelets Present; Lymphocyte % 8.5 %; Nucleated Red Blood Cells % 0.4 %/100WBC (0.0-0.8); TSH Ultra Thyroid Stim Horm 1.97 mcIU/mL (0.34-5.60)
[2024-05-17 08:26] LABS: Folate 11.97 ng/mL (5.90-24.80)
[2024-05-17] MEDS: Potassium Chloride LIQUID 20 MEQ/15 ML LIQUID PO ONE (09:57)
[2024-05-17] MEDS: Albuterol 2.5mg/3 ml (0.083%) NEB.SOLN INH PRN (10:17)
[2024-05-18 06:27] LABS: ABS Eosinophils 0.1 10^3/uL (0.0-0.5); ABS Lymphocytes 0.7 10^3/uL (1.0-4.8); ABS Monocytes 0.6 10^3/uL (0.0-1.1); ABS Neutrophils 5.1 10^3/uL (1.5-7.6); ABS Nucleated RBC 0.02 10^3/ul; Eosinophil % 1.1 %; Hematocrit 39.2 % (38-53); Hemoglobin 13.4 g/dL (13.2-16.3); Lymphocyte % 10.4 %; Mean Corpuscular Hemoglobin 33.6 pg (27-33); Mean Corpuscular Hgb Conc 34.2 g/dL (31-36); Mean Corpuscular Volume 98.3 fL (80-97); Mean Platelet Volume 9.7 fL (7.5-11.2); Nucleated Red Blood Cells % 0.3 %/100WBC (0.0-0.8); Platelet Count 124 10^3/uL (150-450); Red Blood Count 3.99 10^6/uL (4.06-5.63); Red Cell Distribution Width 19.1 % (12-17); White Blood Count 6.5 10^3/uL (3.6-10.2)
[2024-05-18 07:50] LABS: Albumin 3.3 g/dL (3.5-5.7); Albumin/Globulin Ratio 1.5 (1-3); Calcium 8.5 mg/dL (8.6-10.3); Creatinine, Serum 0.82 mg/dL (0.67-1.17); Globulin 2.2 g/dL (2-4); Magnesium 2.2 mg/dL (1.9-2.7); Potassium 3.8 mmol/L (3.5-5.0); Total Bilirubin 0.5 mg/dL (0.2-1.0); Total Protein 5.5 g/dL (6.4-8.9); eGFR CKD-EPI 96.3 (>60)
[2024-05-18] MEDS: Potassium Chlor 20 meq TAB.ER PO ONE (12:45)
[2024-05-18] MEDS: Albuterol/Ipratropium NEB.SOL (2.5/0.5 MG) 3 ML NEB.SOLN INH SCH (19:07)
[2024-05-19 10:46] VITALS: BP 118/70
== END 2024-05-19 12:30 | disposition home or self-care (01) | DRG 193 ==
LOC: ED 01:03 → SUATTDRO 09:01 → EDHOLD 09:01 → MED 17:14 → ICU 05-13 02:21 → MEDTELE 05-15 23:20
PROVIDERS: ADMIT Student in an Organized Health Care Education/Training Program; ATTEND Hospitalist